=== PATIENT | male | born 1940 | race Hispanic/Latino ===

== ENCOUNTER 2023-09-07 10:52 | Emergency (ER) | payer MEDICARE, OTHER, SELFPAY ==
[2023-09-07 10:58] VITALS: BP 167/99
--- NOTE | 2023-09-07 11:18 | ED.GENMED ---
History of Present Illness
General
Chief Complaint: Fall
Source: patient, spouse and family
Exam Limitations: none
Time Seen by Provider: 09/07/23 11:15
Nursing documentation reviewed up to this point in time: agreed with
Travel History
Have you had any contact with someone who has COVID-19?: No
Do you have any symptoms of coronavirus? Fever > 100 degrees, chills, cough, shortness of breath, sore throat, loss of taste or smell, muscle aches, or headache?: No
History of Present Illness
History of Present Illness:
83-year-old male presents emerged department after tripping and falling on a carpet at the oral surgeon's office and hitting his right head. He denies loss of consciousness and denies any other pain besides his right forehead. He is unsure when
his last tetanus shot was.
Past History
Past History
ED Past Medical History: Other (diverticulitis, Kidney stones,)
ED Past Surgical History: Bowel resection (for Diverticulitis) and Cholecystectomy
Social History
Tobacco: Non-smoker
Alcohol: Daily (wine 2 glasses)
Drug: None
Personal:
Living: with family
Review of Systems
Review of Systems
Allergies reviewed?: Yes
All Other Systems: Not applicable
Constitutional: Reports no symptoms
EENT: Reports no symptoms
Respiratory: Reports no symptoms
Cardiac: Reports no symptoms
ABD/GI: Reports no symptoms
: Reports no symptoms
Musculoskeletal: Reports no symptoms
Skin: Reports other (Laceration right forehead)
Neurological: Reports headache
Endocrine: Reports no symptoms
Hematologic/Lymphatic: Reports no symptoms
Psychiatric: Reports no symptoms
Phy Exam
Physical Exam
Physical Exam:
Physical Exam
General: no apparent distress, not acutely ill
Neck: supple. no meningeal signs. normal posterior pharynx
Heart: equal radial pulses.
HEENT: Pupils equal round reactive to light, EOMI
Lungs: no acute respiratory distress.
Abdomen: normal bowel sounds. not tender. no CVAT
Neuro: alert and oriented. no focal neurological deficits cranial nerves II through XII intact
Skin: no rash, laceration right forehead 2 cm
Psychiatric: well kept. interactive and cooperative
Extremities: no edema. no calf tenderness. negative homans. good distal pulses
Course
Orders/Labs/Results
Orders:
Orders
09/07/23 11:24
CT Head W/o Iv Contrast Urgent
Comment:
Reason For Exam: right forehead contusion/abrasion fall
Tetanus/Diphth/Acelpertussis [Adacel] 0.5 ml IM .ONCE ONE
Vital Signs
Initial and Last Documented VS:
Initial Vital Signs
Temp Pulse Resp BP Pulse Ox
97.5 F 109 18 167/99 95
09/07/23 10:58 09/07/23 10:58 09/07/23 10:58 09/07/23 10:58 09/07/23 10:58
Last Documented Vital Signs
Temp Pulse Resp BP Pulse Ox
97.5 F 109 18 167/99 95
09/07/23 10:58 09/07/23 10:58 09/07/23 10:58 09/07/23 10:58 09/07/23 10:58
Procedures
Laceration Closure
Right Forehead:
Status of Wound: clean
Size of Wound in cm: 2
Description of Wound Edges: sharp and surrounded by abrasion
Preparation: cleaned with saline
Anesthesia: 1% Lidocaine with epi
Revision/Debridement: routine- no revision
Wound exploration: explored to base- no FB
Type of Closure: single layer closure
Skin Closure Material: 4-0 nylon
Number of sutures: 2
MDM/Problems Addressed
Differential Diagnosis Includes:
Intracranial hemorrhage, forehead laceration
MDM/Problems Addressed:
83-year-old male with right forehead laceration, no signs of intracranial hemorrhage on CT. Stable for discharge. Tetanus updated
Chronic conditions affecting care: HTN
Acute Exacerbation and/or Progression of Chronic Illness: HTN
*Radiology
Radiology exam reviewed: preliminary read by ED provider (CT head no acute findings)
*Pulse Oximetry
Patient hypoxic: no
*EKG
Interpreted by ED Provider?: NA
*Assistant Boiler Operator Interpretation
Rate: Assistant Boiler Operator- N/A
*Critical Care Note
Total Time (30-74mins, 75-104mins- exclusive of procedures): Not Applicable
Patient Management
Social determinants of health affecting care: Living situation
Escalation/DeEscalation of care consider admission/obs:
Not indicated
ED Attending Note
-
Portions of this chart may have been created with voice recognition software.� Occasional wrong word or��sound alike� substitutions may have occurred due to the inherent limitations of voice recognition software.
Discharge Plan
Departure
Patient with high blood pressure during this ER visit?: Yes
Condition: Good
Discharge Problem:
Forehead laceration, Contusion of head
Instructions: BLOOD PRESSURE, Laceration Repair With Stitches (DC)
Prescriptions:
No Action
aspirin 81 MG tablet,delayed release (DR/EC)
81 mg PO HS
levothyroxine [Synthroid] 88 mcg Tablet
88 mcg PO DAILY
lisinopril 40 mg Tablet
40 mg PO HS
fluticasone propionate [Flonase] 50 mcg/actuation [place],Suspension
1 spray INTRANASAL HS
Referrals:
Paul Ramirez MD [Family Provider] -
Activity Restrictions/Additional Instructions:
See primary care in 5 days for suture
[2023-09-07] MEDS: ADACEL 0.5 ML IM (11:57)
[2023-09-07 12:23] VITALS: BP 158/88
== END 2023-09-07 12:24 | disposition home or self-care (01) ==
LOC: EMR 10:52
PROVIDERS: EMERGENCY PHYSICIAN Emergency Medicine; FAMILY PHYSICIAN Family Medicine
DX: S01.81XA Laceration without foreign body of other part of head, initial encounter (principal); W01.198A Fall on same level from slipping, tripping and stumbling with subsequent striking against other object, initial encounter; I10 Essential (primary) hypertension; Z23 Encounter for immunization
CPT/HCPCS: 99284; 90471; 12011; 70450; 90715

== ENCOUNTER → 2023-09-28 07:58 | Outpatient (REF) | payer MEDICARE, OTHER, SELFPAY ==
[2023-09-28 09:15] LABS: % Basophils 0.8 % (0-2); % Eosinophils 3.9 % (0-6); % Immature Granulocytes 0.2 % (0-0.5); % Monocytes 9.2 % (1.7-9.3); % Neutrophils 62.9 % (42.2-75.2); Absolute Basophils 0.1 10^3/uL (0-0.2); Absolute Eosinophils 0.2 10^3/uL (0-0.7); Absolute Lymphocytes 1.4 10^3/uL (1.2-3.4); Absolute Monocytes 0.6 10^3/uL (0.1-0.6); Absolute Neutrophils 3.7 10^3/uL (1.4-6.5); Hematocrit 46.5 % (39.0-52.0); Hemoglobin 16.8 g/dL (13.0-18.0); Mean Corp Hgb Conc. 36.1 g/dL (33.0-37.0); Mean Corpuscular Volume 88.6 fL (80.0-94.0); Mean Platelet Volume 12.2 fL (7.4-10.4); Nucleated Red Blood Cells % 0 % (-); Platelet Count 134 10^3/uL (130-400); Red Blood Cell Count 5.25 10^6/uL (4.70-6.10); Red Cell Dist. Width 12.6 % (11.5-14.5)
[2023-09-28 09:36] LABS: NT-proBNP 701 pg/ml
[2023-09-28 09:44] LABS: ALT (SGPT) 405 U/L (0-50); AST (SGOT) 314 U/L (17-59); Albumin 3.9 g/dl (3.5-5.0); Alkaline Phosphatase 153 U/L (38-126); Blood Urea Nitrogen 16 mg/dl (9-20); Carbon Dioxide 22 mmol/L (22-30); Chloride 106 mmol/L (98-107); Glucose 109 mg/dl (70-99); HDL Cholesterol 37 mg/dl; LDL Cholesterol, Calculated 103 mg/dl; Potassium 4.1 mmol/L (3.5-5.1); Sodium 138 mmol/L (135-145); Total Bilirubin 1.4 mg/dl (0.2-1.3); Total Cholesterol 184 mg/dl (50-199); Total Protein 7.7 g/dl (6.3-8.2); Triglyceride 223 mg/dl (10-149); Very Low Density Lipoprotein 44 mg/dl (0-30); eGFR > 60.00
[2023-09-28 11:13] LABS: Glycohemoglobin (HgbA1c) 5.2 % (4.0-5.6)
== END ==
LOC: RAD 07:58
PROVIDERS: ATTENDING PHYSICIAN Physician Assistant Medical; FAMILY PHYSICIAN Family Medicine
DX: R60.0 Localized edema (principal); I45.2 Bifascicular block; I10 Essential (primary) hypertension; E03.9 Hypothyroidism, unspecified; D58.2 Other hemoglobinopathies
CPT/HCPCS: 36415; 80053; 80061; 83036; 83880; 84443; 85025; 93922; 93925

== ENCOUNTER → 2023-10-26 08:28 | Outpatient (REF) | payer MEDICARE, OTHER, SELFPAY ==
[2023-10-26 10:49] LABS: ALT (SGPT) 397 U/L (0-50); AST (SGOT) 311 U/L (17-59); Albumin 3.8 g/dl (3.5-5.0); Alkaline Phosphatase 144 U/L (38-126); Amylase 72 U/L (30-110); Blood Urea Nitrogen 20 mg/dl (9-20); Carbon Dioxide 25 mmol/L (22-30); Chloride 108 mmol/L (98-107); Glucose 103 mg/dl (70-99); Lipase 100 U/L (23-300); Potassium 4.5 mmol/L (3.5-5.1); Sodium 137 mmol/L (135-145); Total Bilirubin 1.2 mg/dl (0.2-1.3); Total Protein 7.6 g/dl (6.3-8.2); eGFR > 60.00
[2023-10-26 11:19] LABS: TSH 1.31 uIU/ml (0.47-4.68)
[2023-10-26 11:35] LABS: Hepatitis B Surface Antigen Negative (Negative)
[2023-10-26 11:52] LABS: Hepatitis B Core Ab, Total Reactive (Negative); Hepatitis B Surface Antibody Negative
[2023-10-26 18:11] LABS: Hepatitis A Antibody, Total Positive (Negative)
[2023-10-27 14:05] LABS: Alpha-1-Antitrypsin 143 mg/dL (90-200)
== END ==
LOC: RAD 08:28
PROVIDERS: ATTENDING PHYSICIAN Physician Assistant Medical
DX: R74.8 Abnormal levels of other serum enzymes (principal); R60.0 Localized edema; K62.5 Hemorrhage of anus and rectum
CPT/HCPCS: 36415; 76700; 80053; 82103; 82150; 82728; 83690; 84443; 86704; 86706; 86708; 87340

== ENCOUNTER → 2024-03-22 14:48 | Outpatient (REF) | payer MEDICARE, OTHER, SELFPAY ==
[2024-03-22 15:45] LABS: % Basophils 0.5 % (0-2); % Eosinophils 1.2 % (0-6); % Immature Granulocytes 0.3 % (0-0.5); % Lymphocytes 18.6 % (20.5-51.1); % Monocytes 5.5 % (1.7-9.3); % Neutrophils 73.9 % (42.2-75.2); Absolute Basophils 0.1 10^3/uL (0-0.2); Absolute Eosinophils 0.1 10^3/uL (0-0.7); Absolute Lymphocytes 1.8 10^3/uL (1.2-3.4); Absolute Monocytes 0.5 10^3/uL (0.1-0.6); Absolute Neutrophils 7.3 10^3/uL (1.4-6.5); Hematocrit 43.1 % (39.0-52.0); Hemoglobin 15.6 g/dL (13.0-18.0); Mean Corp Hgb Conc. 36.2 g/dL (33.0-37.0); Mean Corpuscular Hgb 31.8 pg (27.0-31.0); Mean Corpuscular Volume 87.8 fL (80.0-94.0); Nucleated Red Blood Cells % 0 % (-); Platelet Count 139 10^3/uL (130-400); Red Blood Cell Count 4.91 10^6/uL (4.70-6.10); Red Cell Dist. Width 13.7 % (11.5-14.5); White Blood Cell Count 9.9 10^3/uL (4.8-10.8)
[2024-03-22 15:56] LABS: Erythrocyte Sed Rate 92 mm/hour (0-20)
== END ==
LOC: REG 14:48
PROVIDERS: ATTENDING PHYSICIAN Student in an Organized Health Care Education/Training Program; FAMILY PHYSICIAN Family Medicine
DX: Z96.652 Presence of left artificial knee joint (principal); M25.562 Pain in left knee
CPT/HCPCS: 36415; 85025; 85652; 86140

== ENCOUNTER → 2024-03-24 14:22 | Outpatient (REF) | payer MEDICARE, OTHER, SELFPAY ==
[2024-03-24 18:26] LABS: Body Fluid Mononuclear 3.9 %; Body Fluid Polymorphonuclear 96.1 %; Body Fluid WBC 37930 /CUMM
[2024-03-24 18:52] LABS: Body Fluid Second Tech CMC
== END ==
LOC: CLAB 14:22
PROVIDERS: ATTENDING PHYSICIAN Physician Assistant Surgical
DX: M25.462 Effusion, left knee (principal); Z96.652 Presence of left artificial knee joint
CPT/HCPCS: 36415; 86618; 87015; 87070; 87075; 87147; 87205; 87476; 89051; 89060

== ENCOUNTER → 2024-03-28 13:18 | Outpatient (REF) | payer MEDICARE, OTHER, SELFPAY ==
[2024-03-28 14:03] LABS: % Basophils 0.6 % (0-2); % Eosinophils 0.8 % (0-6); % Immature Granulocytes 0.3 % (0-0.5); % Lymphocytes 12.8 % (20.5-51.1); % Monocytes 7.6 % (1.7-9.3); % Neutrophils 77.9 % (42.2-75.2); Absolute Basophils 0.1 10^3/uL (0-0.2); Absolute Eosinophils 0.1 10^3/uL (0-0.7); Absolute Monocytes 0.6 10^3/uL (0.1-0.6); Absolute Neutrophils 6.2 10^3/uL (1.4-6.5); Hematocrit 40.6 % (39.0-52.0); Hemoglobin 14.4 g/dL (13.0-18.0); Mean Corp Hgb Conc. 35.5 g/dL (33.0-37.0); Mean Corpuscular Hgb 31.4 pg (27.0-31.0); Mean Corpuscular Volume 88.6 fL (80.0-94.0); Mean Platelet Volume 11.2 fL (7.4-10.4); Nucleated Red Blood Cells % 0 % (-); Platelet Count 162 10^3/uL (130-400); Red Blood Cell Count 4.58 10^6/uL (4.70-6.10); White Blood Cell Count 7.9 10^3/uL (4.8-10.8)
[2024-03-28 15:05] LABS: ALT (SGPT) 224 U/L (0-50); AST (SGOT) 191 U/L (17-59); Albumin 3.7 g/dl (3.5-5.0); Alkaline Phosphatase 239 U/L (38-126); Blood Urea Nitrogen 17 mg/dl (9-20); Calcium 9.3 mg/dl (8.4-10.2); Carbon Dioxide 26 mmol/L (22-30); Chloride 104 mmol/L (98-107); Glucose 101 mg/dl (70-99); Potassium 4.1 mmol/L (3.5-5.1); Sodium 142 mmol/L (135-145); Total Bilirubin 2.4 mg/dl (0.2-1.3); Total Protein 7.7 g/dl (6.3-8.2); eGFR > 60.00
[2024-03-31 09:14] LABS: Glycohemoglobin (HgbA1c) 4.8 % (4.0-5.6)
== END ==
LOC: RAD 13:18
PROVIDERS: ATTENDING PHYSICIAN Specialist; FAMILY PHYSICIAN Family Medicine
DX: Z01.818 Encounter for other preprocedural examination (principal)
CPT/HCPCS: 36415; 80053; 85025; 86850; 86900; 86901; 87070; 93005

== ENCOUNTER 2024-04-03 10:35 | Inpatient (IN) | payer MEDICARE, OTHER, SELFPAY ==
--- NOTE | 2024-03-29 15:04 | CM ---
Addendum entered by Miriam Bernstein 03/29/24 15:35:
Attempted to contact patient via phone. no answer, will try later.
Spoke with [facility] they would be able to go out as early as Wednesday for IV anbx. We would be able to place referral if patient in agreement. CM will try back later.
Original Note:
CM asked to check costs for possible home IV anbx.
Cefazolin 2 gm IV q 8.
Insurance information and planned medication sent to [facility].
[facility] will verify benefits and coverage/out of pocket expenses.
--- NOTE | 2024-03-30 10:21 | CM ---
Addendum entered by Miriam Bernstein 03/30/24 11:32:
TCB from spouse Radha.
Per Radha she is aware of plan post surgery for IV anbx and d/c to home. Radha was agreeable to [facility] providing antibiotics and supplies.
Costs reviewed and acceptable.
Discussed home care companies and [facility] was chosen for IV anbx.
Referral placed to [facility] and spoke with liaison re potential early next week d/c.
Per Radha her spouse was very active prior to surgery last year. Bedroom is on the second floor and has some concerns re stairs.
CM explained patient would be evaluated by PT/OT prior to d/c to assess needs and safety at home.
CM explained patient will be followed by CM after surgery to go over d/c plans.
Addendum entered by Miriam Bernstein 03/30/24 11:11:
Left VM for spouse.
Original Note:
TC from Emma/[facility] re costs for IV anbx.
Cefazolin 2 gm IV q 8. patient has insurance benefit, OOP costs to patient for medication and supplies would be $155 per week.
TC to patient Ángel p#[phone] to discuss d/c plan with anbx after surgery.
Patient requested CM call back in a little while to speak with spouse.
[2024-04-03] VITALS (17 sets, daily range): BP systolic 143–186; BP diastolic 76–94; BMI 23.7
[2024-04-03] MEDS: TYLENOL 650 MG PO (11:58)
[2024-04-03] MEDS: CELEBREX 200 MG PO (11:59)
--- NOTE | 2024-04-03 12:10 | CON.ID ---
Consultation
-
Date/Time Consultation Requested: 04/03/2024
Date/Time Consultation Performed: 04/03/2024
Requesting Provider: Dr. Juan Diego Strauss
Performing Provider: Dr. Pamela Hall
Reason for Consultation: Knee PJI
Chief Complaint / Past History
Chief Complaint
Left knee swelling and pain
History of Present Illness
History obtained from review of medical records, from patient, and his at bedside. He is an 84 year old male with hypothyroidism, OA s/p left total knee replacement on 02/23/2023. He was doing well until 2 weeks ago, when left knee became
swollen and painful. Ortho tapped the knee on 03/24/24; 37,930 wbc, 96% polys, Lyme PCR neg, cx + Staph epi sensitive to oxacillin. He was placed on cephalexin as per my recommendation while awaiting for surgery. He presents today at [facility] for first
stage revision. He denies fevers or chills. No recent open wounds on legs. Fell and had cuts on his foreheads 6 months ago requiring stitches. Had hematuria treated with Bactrim in January. He gets steroid injection to right knee.
Past History
Additional Past Medical History:
HTN
hypothyroidism
Erectile dysfunction
Elevated LFT's
BPH
Nephrolithiasis
Diverticulitis w/ perforated bowel s/p remote colon resection
Venous insufficiency
Depression
Cerebellar infarct on MRI
Right knee OA - treating with steroid injections
Left TKA 02/23/2023
Allergy History:
latex Allergy (Verified 04/03/24 11:51)
LIPS AND GUMS SWELLING
meperidine HCl [From Demerol] Allergy (Verified 04/03/24 11:51)
hallucinations
morphine [Morphine] Allergy (Verified 04/03/24 11:51)
hallucinations
Medications Reviewed: Yes
Social History
Tobacco: Non-Smoker
Alcohol: Former (2 to 3 glasses of wine daily, stopped 6 months ago)
Drug: None
Personal:
Living: With Family
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
Family History
Family History: Not Pertinent
Review of Systems
Review of Systems
General: Negative Fever, Chills or Change in Appetite
HEENT: Negative Sinus Problems or Headache
Cardiovascular: Negative Chest Pain or Dyspnea
Respiratory: Negative Dyspnea or Cough
Gasteroenterology: Negative Nausea, Vomiting or Diarrhea
Genital / Urological: Negative Dysuria or Flank Pain
Endocrine: Negative Weakness or Fatigue
Musculoskeletal: Joint Pain (left knee) and Joint Swelling (left knee)
Skin / Hair / Nails: Negative Rash
All systems: All other systems were reviewed and were negative
Vital Signs
Pulse Resp BP Pulse Ox
102 18 174/94 98
04/03/24 11:55 04/03/24 11:55 04/03/24 11:55 04/03/24 11:55
Physical Exam
Physical Exam
Constitutional: No Acute Distress and Comfortable
Eyes: No Conjunctival Hemorrhage and Sclera Anicteric
Cardiovascular: Regular Rate and S1/S2
Pulmonary: Clear
Gastrointestinal: Soft, Non Tender, Non Distended and Normal Bowel Sounds
Genito-Urinary: Negative CVA Tenderness
Extremities: Negative Edema
Musculoskeletal: Other (Left knee + warmth, effusion, limited ROM)
Neurological: AO x 3
Microbiology Results
Fluid Cult/not urine Final 03/30/24-1134
Few Staphylococcus epidermidis
Organism 1 Staphylococcus epidermidis
1. Staphylococcus epidermidis
M.I.C. RX
--------- ---
Amoxicillin/Potas. Clavulanate <=4/2 S
Ampicillin <=2 R
Clindamycin <=0.5 S
Gentamicin >8 R
Erythromycin >4 R
Levofloxacin <=1 S
Oxacillin <=0.25 S
Tetracycline >8 R
Trimethoprim/Sulfamethoxazole <=0.5/9.5 S
Vancomycin 2 S
Assessment / Plan
# Late left knee PJI
- Arthrocentesis fluid 37,930, 96%polys, no crystals, Lyme DNA neg
Cx : Staph epidermidis (MSSE)
- For first stage knee revision today.
- Will place PICC post-op
- Cefazolin 2g IV q8h x 6 weeks through 05/15/24.
[2024-04-03] MEDS: NORMOSOL-R/PLASMALYTE-A 1000 IV (12:11)
--- NOTE | 2024-04-03 14:41 | W.PN.UPDATE ---
Update Note
Progress Note Update
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
- Pre-op culture demonstrating Staph epidermidis -> started on Cefadroxil 500 mg PO QID per Dr. Hall's (ID) recs
- Start Cefazolin 2g IV q8h post-op (ideal timing 6 AM, 2 PM, 10 PM)
- Consult ID
DVT prophylaxis - ASA, b/l venous foot pumps
HTN - diet controlled - monitor BP
Fatty liver disease w/ elevated LFTs per abdominal x-ray 10/2023 - given recent LFT readings w/ strong Fhx of liver CA, will consult GI for further w/u
- Minimize hepatotoxins as able (No Tylenol, NSS over Normosol post-op)
RBBB
LAFB
PVD w/ venous varicosities
Diverticulitis w/ perforated bowel s/p remote colon resection
Nephrolithiasis, non-obstructive
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
Cervical DDD
Hypothyroidism
Depression
PILOT [place]
[2024-04-03] MEDS: SUBLIMAZE 50 MCG IV (17:30)
[2024-04-03] MEDS: ROXICODONE 5 MG PO (17:51)
[2024-04-03] MEDS: NEURONTIN 200 MG PO ×2 (17:51→20:32)
[2024-04-03] MEDS: NSS 1000 IV (18:06)
--- NOTE | 2024-04-03 19:45 | SUR.PHASEI ---
patient is confused with time - thought original knee surgery was last year. Has some difficulty with time and events. Medicated for burning pain in knee and back pain. Medicated with fentanyl and roxicodone and neurontin started. minimal
drainage on knee dressing. left foot was cold and purple mottled on arrival. doppler pulse - warm blanket on. foot did improve in color and temperature during stay though still cooler than right. slept after medication. updated x2. discharge
to 2 south when room available. handoff at bedside.
[2024-04-03] MEDS: ASPIRIN 325 MG PO (20:31)
[2024-04-03] MEDS: PEPCID 20 MG PO (20:31)
[2024-04-03] MEDS: SENOKOT 17.2 MG PO (20:32)
[2024-04-03] MEDS: COLACE 100 MG PO (20:32)
[2024-04-03] MEDS: BACTROBAN 2% OINTMENT 1 APPLIC NASAL (21:33)
[2024-04-03] MEDS: ANCEF 10 IV (21:33)
[2024-04-04] VITALS (9 sets, daily range): BP systolic 113–177; BP diastolic 62–98; PULSE 69–95; O2SAT 98–99
--- NOTE | 2024-04-04 02:01 | PTCARENOTE ---
19:15 pt rec'vd from PACU, left knee dressing with small amount of drainage noted, left pedal pulses +with doppler , toes cool to touch and mottled, pt is able to wiggles toes, vs at pt's baseline, pt denies pain at this time, pt oriented to unit
[2024-04-04] MEDS: ANCEF 10 IV ×3 (06:17→20:28)
[2024-04-04] MEDS: SYNTHROID 88 MCG PO (06:17)
--- NOTE | 2024-04-04 06:33 | PTCARENOTE ---
pt able to ambulate 30 feet with stand by assist and walker.
[2024-04-04 06:50] LABS: Hematocrit 37.2 % (39.0-52.0); Hemoglobin 13.1 g/dL (13.0-18.0); Mean Corp Hgb Conc. 35.2 g/dL (33.0-37.0); Mean Corpuscular Volume 90.7 fL (80.0-94.0); Mean Platelet Volume 11.7 fL (7.4-10.4); Platelet Count 222 10^3/uL (130-400); Red Cell Dist. Width 13.7 % (11.5-14.5); White Blood Cell Count 6.4 10^3/uL (4.8-10.8)
[2024-04-04 07:27] LABS: ALT (SGPT) 120 U/L (0-50); AST (SGOT) 96 U/L (17-59); Albumin 2.9 g/dl (3.5-5.0); Alkaline Phosphatase 219 U/L (38-126); Blood Urea Nitrogen 19 mg/dl (9-20); Calcium 8.3 mg/dl (8.4-10.2); Carbon Dioxide 27 mmol/L (22-30); Chloride 104 mmol/L (98-107); Estimated Creatinine Clearance 66 ml/min; Glucose 134 mg/dl (70-99); Potassium 5.5 mmol/L (3.5-5.1); Sodium 140 mmol/L (135-145); Total Bilirubin 1.3 mg/dl (0.2-1.3); Total Protein 6.5 g/dl (6.3-8.2); eGFR > 60.00
[2024-04-04 08:34] LABS: Erythrocyte Sed Rate 79 mm/hour (0-20)
--- NOTE | 2024-04-04 09:53 | W.PN.ID1 ---
Date of Service
Date of Service: April 04, 2024
Today's Communication
- Ordered PICC
- Cefazolin 2g IV q8h x 6 weeks through 05/15/24.
Assessment / Plan
# Late left knee PJI
- Arthrocentesis fluid 37,930, 96%polys, no crystals, Lyme DNA neg
Cx : Staph epidermidis (MSSE)
- 04/03/24 s/pfirst stage knee revision
- Ordered PICC
- Cefazolin 2g IV q8h x 6 weeks through 05/15/24.
- Home infusion sheet submitted to case managemen to set up.
#Additional Past Medical History:
HTN
hypothyroidism
Erectile dysfunction
Elevated LFT's
BPH
Nephrolithiasis
Diverticulitis w/ perforated bowel s/p remote colon resection
Venous insufficiency
Depression
Cerebellar infarct on MRI
Right knee OA - treating with steroid injections
Left TKA 02/23/2023
Chief Complaint
-: Other (PJI)
Subjective / Review of Systems
No complaints. Working with PT now.
Vital Signs / Physical Exam
Vital Signs
Vital Signs
Temp Pulse Resp BP Pulse Ox
97.8 F 94 18 149/72 96
04/04/24 07:00 04/04/24 07:00 04/04/24 07:00 04/04/24 07:00 04/04/24 07:00
Physical Exam
Constitutional: No Acute Distress
Pulmonary: Clear
Gastrointestinal: Soft and Non Tender
Neurological: AO x 3
Objective Data
Lab Data
Lab Results
04/04/24 04:59
04/04/24 04:59
ESR 79 mm/hour (0-20) H 04/04/24 04:59
Estimated Creat Clear 66 ml/min 04/04/24 04:59
Total Bilirubin 1.3 mg/dl (0.2-1.3) 04/04/24 04:59
AST 96 U/L (17-59) H 04/04/24 04:59
ALT 120 U/L (0-50) H 04/04/24 04:59
Alkaline Phosphatase 219 U/L (38-126) H 04/04/24 04:59
Most recent labs reviewed.
Fluid Cult/not urine Final 03/30/24-1134
Few Staphylococcus epidermidis
Organism 1 Staphylococcus epidermidis
1. Staphylococcus epidermidis
M.I.C. RX
--------- ---
Amoxicillin/Potas. Clavulanate <=4/2 S
Ampicillin <=2 R
Clindamycin <=0.5 S
Gentamicin >8 R
Erythromycin >4 R
Levofloxacin <=1 S
Oxacillin <=0.25 S
Tetracycline >8 R
Trimethoprim/Sulfamethoxazole <=0.5/9.5 S
Vancomycin 2 S
[2024-04-04] MEDS: ROXICODONE 10 MG PO (10:22)
[2024-04-04] MEDS: BACTROBAN 2% OINTMENT 1 APPLIC NASAL ×2 (10:25→20:27)
[2024-04-04] MEDS: SENOKOT 17.2 MG PO (10:26)
[2024-04-04] MEDS: COLACE 100 MG PO (10:27)
[2024-04-04] MEDS: ASPIRIN 325 MG PO (10:27)
[2024-04-04] MEDS: NEURONTIN 200 MG PO ×3 (10:27→20:28)
--- NOTE | 2024-04-04 11:19 | CON.GI ---
Addendum entered and electronically signed by Cynthia Diallo Do, MD 04/04/24 16:09:
I saw and examined the patient.
The BATCH WEIGHER's note was reviewed and I agree with the note.
Comment: Ángel is an 84yo M with h/o OA s/p L total knee replacement in 02/2023 admitted with first stage revision for L TKA. GI consulted for chronically elevated LFTs dating back to 2007 with recent uptrend. He is not known to GI or hepatology.
Endorse wine but none in the past several weeks + herbal med. No acetaminophen. His brother passed of hep C cirrhosis and his had hepatitis in [place] as well. Vitals stable exam NTTP NABs no jaundice. Labs reviewed. Hep B core +
surface antigen negative. Imaging CXR with R PICC in place.
Impression
- Elevated LFTs
ddx includes fatty liver and ETOH use
- Hep B core +, angiten negative
- Revision of L TKA
- HTN
- Hypothyroidism
- Hyperlipidemia
Recommendations
- Serial LFTs
- Recommend hereditary liver panel and hep B DNA. Not able to order inpt. Lab slip provided
- ETOH cessation
- Hold on herbal med
- OP FU in office and will benefit from fibroscan then
No other GI recs will sign off please call for questions.
Original Note:
Consultation
-
Date/Time Consultation Requested: 04/03/24 1651
Date/Time Consultation Performed: 04/04/24 1100
Requesting Provider: JESUS Crane
Performing Provider: Dr. Amado/VICKI Shane
Reason for Consultation: History of Elevated LFTs/Fatty Liver
Medical History
Chief Complaint / HPI
Chief Complaint: left knee swelling
History of Present Illness:
84-year-old male with past medical history of hypothyroidism, osteoarthritis status post left total knee replacement in February 2023, colon polyps overdue for colonoscopy 09/2020, elevated LFTs dating back to 2007, BPH, nephrolithiasis,
diverticulitis with bowel resection who was treated for a left knee infection and is admitted to the hospital for first stage revision for left TKA. We are asked to evaluate the patient at the request of his PCP for elevated LFTs that have been
present since 2007 however increased since September 2023. No acute signs of significant change since that time. Unfortunately the patient's closest brother 2-1/2 weeks ago of liver cancer. They were unaware that he even had a until just
prior to his demise. Going back in patient's prior records he had mildly elevated AST and ALT going back until 2007. No records available to me prior to that. In [id number] there were no liver enzymes that were performed however in September 2023 he
did have a jump in his liver enzymes with total bilirubin total bilirubin 1.4, AST 314, ALT 405 and alk phos 153 these were repeated 1 month later that showed total bilirubin 1.2, AST 311, ALT 397 alk phos 144. He did have an ultrasound of the
right upper quadrant that showed fatty liver. He had a negative alpha 1 antitrypsin. Viral hepatitis studies were performed in October that showed hepatitis A antibody total that was positive (immune), hepatitis B surface antigen negative, hepatitis B
surface antibody negative, hepatitis B core total antibody reactive. The patient's was with him at bedside. She states that when she was in her 20s she was admitted to the hospital for some form of 'hepatitis'. And that she stayed in the
hospital for almost 2 months. She is unsure what type of hepatitis she had. Eventually she was discharged to home. The patient himself would drink approximately 2 glasses of wine daily. Never anything heavier than this. He has not had anything
to drink for at least 6 months. In the past he would use a significant amount of Tylenol otherwise no other significant hepatotoxic medications. His only other medication is Synthroid. The patient denies any fevers, chills, nausea, vomiting,
melena, hematochezia, dysphagia or odynophagia. No early satiety or unintentional weight loss. Currently total bilirubin 1.3, AST 96, ALT 120, alk phos 219.
Past Medical History
Past Medical History: HTN, Hypercholesterolemia, Hypothyroidism and Other (Osteoarthritis, elevated LFTs, colon polyps)
Past Surgical History: Orthopedic (Colon resection, left total knee arthroscopy (02/23/2023))
Social History
Tobacco: Non-Smoker
Alcohol: Former
Drug: None
Personal:
Living: With Family
Employment: Retired
Family History
Family History: Other (Brother recently 2 weeks ago liver cancer, no other family history of gastrointestinal malignancies or IBD)
Allergies / Home Medications
Allergy/AdvReac Type Severity Reaction Status Date / Time
latex Allergy LIPS AND Verified 04/03/24 11:51
GUMS
SWELLING
meperidine HCl [From Demerol] Allergy hallucinati Verified 04/03/24 11:51
ons
morphine [Morphine] Allergy hallucinati Verified 04/03/24 11:51
ons
�Medication �Instructions �Recorded
levothyroxine 88 mcg tablet 88 mcg PO DAILY Thyroid 07/03/22
(Synthroid)
acetaminophen 325 mg tablet 650 mg PO QID PRN pain 03/30/24
(Tylenol)
Review of Systems
-
All other systems: A 12 pt ROS was Negative except as stated above in HPI
Vital Signs
Temp Pulse Resp BP Pulse Ox
97.8 F 94 18 149/72 96
04/04/24 07:00 04/04/24 07:00 04/04/24 07:00 04/04/24 07:00 04/04/24 07:00
Physical Exam
Exam
General: No Apparent Distress
HEENT: Anicteric
Respiratory: Clear
Cardiac: Regular Rhythm
GI: Soft, Non Tender, Non Distended and Normal Bowel Sounds
Musculoskeletal: No Edema and Other (Ice pack on left knee)
Skin: Warm and Dry
Neuro: AO x 3
Psych: Calm
Results
WBC 6.4 10^3/uL (4.8-10.8) 04/04/24 04:59
Hgb 13.1 g/dL (13.0-18.0) 04/04/24 04:59
Hct 37.2 % (39.0-52.0) L 04/04/24 04:59
MCV 90.7 fL (80.0-94.0) 04/04/24 04:59
Plt Count 222 10^3/uL (130-400) D 04/04/24 04:59
Sodium 140 mmol/L (135-145) 04/04/24 04:59
Potassium 5.5 mmol/L (3.5-5.1) H 04/04/24 04:59
Chloride 104 mmol/L (98-107) 04/04/24 04:59
Carbon Dioxide 27 mmol/L (22-30) 04/04/24 04:59
BUN 19 mg/dl (9-20) 04/04/24 04:59
Creatinine 0.7 mg/dL (0.7-1.3) 04/04/24 04:59
Calcium 8.3 mg/dl (8.4-10.2) L 04/04/24 04:59
Total Bilirubin 1.3 mg/dl (0.2-1.3) 04/04/24 04:59
AST 96 U/L (17-59) H 04/04/24 04:59
ALT 120 U/L (0-50) H 04/04/24 04:59
Alkaline Phosphatase 219 U/L (38-126) H 04/04/24 04:59
Diagnostic Image Results:
Prior GI Procedures:
EGD: Never had
Colonoscopy: 10/11/2020 ([facility]) - Preparation of the colon was fair.
- One 4 mm polyp in the cecum, removed with a cold
snare. Resected and retrieved.
- One 6 mm polyp in the transverse colon, removed with
a cold snare. Resected and retrieved.
- Diverticulosis in the sigmoid colon, in the
descending colon, in the transverse colon and in the
ascending colon.
- Non-bleeding internal hemorrhoids.
- Suspect bleeding is likely diverticular as it has
resolved.
Assessment / Plan
-
84-year-old male with past medical history of hypothyroidism, osteoarthritis status post left total knee replacement in February 2023, colon polyps overdue for colonoscopy 09/2020, elevated LFTs dating back to 2007, BPH, nephrolithiasis,
diverticulitis with bowel resection who was treated for a left knee infection and is admitted to the hospital for first stage revision for left TKA. We are asked to evaluate the patient at the request of his PCP for elevated LFTs that have been
present since 2007 however increased since September 2023. No acute signs of significant change since that time.
Impression:
Elevated LFTs
Hepatitis B core antibody positive
Fatty liver seen on ultrasound imaging 10/2023
Family history of liver cancer Brother
Currently just had stage 1 left TKA revision--> will be convalescing from this
Plan:
-Check HBV PCR
-Discussed with patient and his to follow-up as an outpatient. Given office follow-up on discharge instructions.
-Gave lab slips to have performed after discharge including GAYE, AMA, ASMA, ceruloplasmin, celiac panel, iron, ferritin, anti-LK M1 antibody
-Discussed reduction techniques for fatty liver.
-Avoid any alcohol and hepatic toxic substances
-Will discuss further at outpatient follow-up.
-
-
Thank you for consultation and allowing me to participate in the patient's care. Please call the supervisor production managing GI physician during the after hours with any questions or concerns.
--- NOTE | 2024-04-04 12:15 | W.PN.ORTHO ---
Today's Communication / Plan
-
Trend CBC, K+, LFTs.
Continue to work w/ PT and OT as tolerated.
D/c when clinically stable.
Assessment
.
Distal Motor Intact: Yes
Dressing:
Inferior end of dressing w/ incisional bleeding noted. Pt received additional kasie and dressing changed/reinforced. Dressing now C/D/I.
Assessment:
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
- Pre-op culture demonstrating Staph epidermidis -> started on Cefadroxil 500 mg PO QID per Dr. Hall's (ID) recs
- Start Cefazolin 2g IV q8h post-op (ideal timing 6 AM, 2 PM, 10 PM). PICC line to be placed. Pt will require weekly labs
- Appreciate ID; pt to follow-up outpatient
DVT prophylaxis - ASA, b/l venous foot pumps
Post-op hyperkalemia - Lokelma ordered, low potassium diet - trend
HTN - diet controlled - recent elevations noted (pain related?)
- Ensure adequate pain control
- IV Hydralazine ordered prn for SBP >165
Fatty liver disease w/ elevated LFTs per abdominal x-ray 10/2023 - strong Fhx of liver CA - GI consulted
- Minimize hepatotoxins as able (No Tylenol, NSS over Normosol post-op)
- HBV testing pending
- To follow up w/ GI outpatient for further testing
RBBB
LAFB
PVD w/ venous varicosities
Diverticulitis w/ perforated bowel s/p remote colon resection
Nephrolithiasis, non-obstructive
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
Cervical DDD
Hypothyroidism
Depression
[place]
Plan
.
Surgery / Date: 1st stage Revision of L TKA w/ Dr Strauss 04/03/24
DVT Prophylaxis: Aspirin
Activity:
Out of bed.
PT/OT
Subjective
.
.:
Patient resting comfortably in his chair.
L knee pain reportedly minimal in comparison to pre-op pain.
Denies any new significant complaints.
Vital Signs and Labs
.
Vital Signs and Labs:
Lab Results
04/04/24 04:59
04/04/24 04:59
Temp Pulse Resp BP Pulse Ox
97.3 F 102 18 138/69 96
04/04/24 11:00 04/04/24 11:00 04/04/24 11:00 04/04/24 11:00 04/04/24 11:00
Physical Exam
-
HEENT: No pallor, cyanosis, or jaundice. Throat clear.
NECK: Supple. No JVD.
RESPIRATORY: Lungs clear to auscultation.
CVS: S1, S2 normal. RRR.�
ABDOMEN: Soft, non-tender. No distension.
EXTREMITIES: Strength equal, no calf pain with palpation/dorsiflexion. Calves soft.
RIBBON HAND: AOx3. No focal deficits. tank pumper grossly intact
--- NOTE | 2024-04-04 12:52 | CM ---
Addendum entered by Andreia King 04/04/24 17:19:
Faxed clinicals, labs, med sheets to [facility]
Addendum entered by Andreia King 04/04/24 16:07:
PT re-assessed patient and rec HH. Met with patient and family.
Called & LM with Emma from [facility] to update on patient returning home at discharge.
Faxed PICC Line data & xray to [facility]
PLAN: Home with IV antibiotics - [facility] Fax #: [phone]
[facility] Fax #:[phone]
Original Note:
Met patient, & daughter
IMM explained & signed.
PT recommended SNF - PT states will re-eval later today
Discussed options - Referrals placed Tho bam, [facility]
Discussed with Birgit Zarco
Patient was set up with [facility] & [facility] at home for IV Cefazolin 2 gm Q8H - Faxed script to [facility]
PICC LINE to placed today.
CM to fax PICC DATA & Xray once completed.
PLAN: Home with [facility] IV antibiotics & [facility] VS. SNF, pending bed availability
[facility] Fax #: [phone]
[facility] Fax #:[phone]
[2024-04-04] MEDS: LOKELMA 5 GRAM PO (13:45)
[2024-04-04] MEDS: FLORASTOR 250 MG PO ×2 (13:46→20:28)
--- NOTE | 2024-04-04 20:19 | W.PN.UPDATE ---
Update Note
Progress Note Update
Late entry from ~11a
Patient POD#1 from explant left knee and placement of cement spacer (Dora). Dressing distally a bit saturated. Aquacel taken down. Incision cleaned with Betadine and 4 additional kasie provided to the distal incision. New aquacel dressing
applied with NISHI and kim compression. Will follow
[2024-04-04] MEDS: PEPCID 20 MG PO (20:28)
[2024-04-04] MEDS: SENOKOT PO (20:40)
[2024-04-04] MEDS: COLACE PO (20:40)
[2024-04-04] MEDS: ROXICODONE 5 MG PO (22:27)
--- NOTE | 2024-04-05 04:01 | DOWNTIME ---
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 Downtime documentation of patient's care, including medication administrations, has been reconciled in the electronic record per guidelines. Refer to the
patient's paper chart under the miscellaneous tab to see printed paper medication records and downtime forms.
[2024-04-05] MEDS: ANCEF 10 IV (05:10)
[2024-04-05] MEDS: SYNTHROID 88 MCG PO (05:10)
[2024-04-05 06:37] LABS: Hematocrit 34.3 % (39.0-52.0); Hemoglobin 12.3 g/dL (13.0-18.0); Mean Corp Hgb Conc. 35.9 g/dL (33.0-37.0); Mean Corpuscular Volume 89.3 fL (80.0-94.0); Mean Platelet Volume 11.1 fL (7.4-10.4); Platelet Count 299 10^3/uL (130-400); Red Blood Cell Count 3.84 10^6/uL (4.70-6.10); Red Cell Dist. Width 13.8 % (11.5-14.5); White Blood Cell Count 8.8 10^3/uL (4.8-10.8)
[2024-04-05 07:15] LABS: ALT (SGPT) 78 U/L (0-50); AST (SGOT) 117 U/L (17-59); Alkaline Phosphatase 241 U/L (38-126); Blood Urea Nitrogen 25 mg/dl (9-20); Calcium 8.9 mg/dl (8.4-10.2); Carbon Dioxide 24 mmol/L (22-30); Chloride 106 mmol/L (98-107); Estimated Creatinine Clearance 58 ml/min; Glucose 94 mg/dl (70-99); Potassium 3.9 mmol/L (3.5-5.1); Sodium 140 mmol/L (135-145); Total Bilirubin 0.8 mg/dl (0.2-1.3); Total Protein 6.6 g/dl (6.3-8.2); eGFR > 60.00
[2024-04-05 07:50] VITALS: BP 156/80
[2024-04-05] MEDS: SENOKOT PO (08:46)
[2024-04-05] MEDS: COLACE PO (08:46)
[2024-04-05] MEDS: NEURONTIN 200 MG PO (08:48)
[2024-04-05] MEDS: FLORASTOR 250 MG PO (08:48)
[2024-04-05] MEDS: ASPIRIN 325 MG PO (08:48)
--- NOTE | 2024-04-05 09:18 | CM ---
Spoke with Emma from [facility] and Sissy from [facility], both are on board for 2 pm IV anbx to be administered at home today.
Per Emma all information received.
Emma will be reaching out to patients spouse.
TT to Ortho PA.
[2024-04-05 10:12] VITALS: BMI 23.8
[2024-04-05 10:38] VITALS: BP 150/76; PULSE 100
--- NOTE | 2024-04-05 10:53 | W.PN.ORTHO ---
Today's Communication / Plan
-
D/c today since clinically stable.
Assessment
.
Distal Motor Intact: Yes
Dressing:
Small areas of old incisional bleeding, unchanged since yesterday.
Assessment:
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
- Pre-op culture demonstrating Staph epidermidis -> started on Cefadroxil 500 mg PO QID per Dr. Hall's (ID) recs
- Start Cefazolin 2g IV q8h post-op (ideal timing 6 AM, 2 PM, 10 PM). PICC line placed. Suki to meet pt today at 2 PM.
- Appreciate ID; pt to follow-up outpatient and have weekly labs drawn x6 weeks
DVT prophylaxis - ASA, b/l venous foot pumps
Post-op hyperkalemia, asymptomatic - Lokelma ordered, low potassium diet - improved by POD 2
Post-op diarrhea - reported 1x by pt last night - have switched Colace and Senna from BID to BIDPRN
- Probiotic while on IV abx
- Of note, no further episodes since
HTN - diet controlled - improved by POD 2 w/o need for medication
- Ensured adequate pain control
- IV Hydralazine ordered prn for SBP >165
Fatty liver disease w/ elevated LFTs per abdominal x-ray 10/2023 - strong Fhx of liver CA - GI consulted
- Minimize hepatotoxins as able (No Tylenol/herbals, NSS over Normosol post-op)
- HBV testing pending - results to be f/u by GI
- To follow up w/ GI outpatient for further testing
RBBB
LAFB
PVD w/ venous varicosities
Diverticulitis w/ perforated bowel s/p remote colon resection
Nephrolithiasis, non-obstructive
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
Cervical DDD
Hypothyroidism
Depression
[place]
Plan
.
Surgery / Date: 1st stage Revision of L TKA w/ Dr Strauss 04/03/24
DVT Prophylaxis: Aspirin
Activity:
Out of bed.
PT/OT
Discharge Plan: Home w/ VN
Subjective
.
.:
Patient resting comfortably in his chair today.
Reports some L knee pain w/ ambulation; improvement noted, however, when Oxycodone is taken.
Denies any new significant complaints.
Eager for d/c today.
Vital Signs and Labs
.
Vital Signs and Labs:
Lab Results
04/05/24 05:51
04/05/24 05:51
Temp Pulse Resp BP Pulse Ox
97.8 F 91 18 156/80 98
04/05/24 07:50 04/05/24 07:50 04/05/24 07:50 04/05/24 07:50 04/05/24 07:50
Physical Exam
-
HEENT: No pallor, cyanosis, or jaundice. Throat clear.
NECK: Supple. No JVD.
RESPIRATORY: Lungs clear to auscultation.
CVS: S1, S2 normal. RRR.�
ABDOMEN: Soft, non-tender. No distension.
EXTREMITIES: Expected post-surgical L knee edema. Strength equal, no calf pain with palpation/dorsiflexion. Calves soft.
CONCRETE BUCKET HOOKER: AOx3. No focal deficits. in home tutor grossly intact
--- NOTE | 2024-04-05 11:19 | W.DS.TRANS ---
DC Summary - [place]
-
Discharge Instructions:
Sleep Apnea Risk Low
Discharge Diagnosis/Procedures Infection of internal L TK prosthesis s/p 1st
stage Revision of L TKA w/ Dr Strauss 04/03/24
Diet Regular
Activity As tolerated,With Walker
Driving Restrictions Not until seen by your Dr
Bathing Restrictions OK to Shower
Blood Work CBC with diff, CMP, ESR, CRP weekly on Mondays
x6 weeks w/ results to surgeon and Dr. Santiago
[facility].
Other Services PT
Wound Care Dressing to be removed 1 week post-surgery.
Instructions:
Stand-Alone Forms: Total Hip/Knee Replacement D/C
Changes to Home Medications: Yes
Discharge Medications:
DC Medications w/original date entered in [employer]
levothyroxine 88 mcg tablet (Synthroid) 88 mcg PO DAILY Thyroid 07/03/22
Saccharomyces boulardii 250 mg capsule 250 mg PO BID #90 caps 04/05/24
aspirin 325 mg tablet 325 mg PO DAILY #30 tabs 04/05/24
cefazolin 10 gram solution for injection 2 g IV Q8H@0600,1400,2200 #123 ea 04/05/24
docusate sodium 100 mg capsule (Colace) 100 mg PO BID PRN constipation #30 caps 04/05/24
famotidine 20 mg tablet 20 mg PO HS #30 tabs 04/05/24
gabapentin 100 mg capsule 200 mg (2 x 100 mg) PO TID neuropathic pain #30 caps 04/05/24
ondansetron HCl 4 mg tablet 4 mg PO Q6H PRN nausea and vomiting #30 tabs 04/05/24
oxycodone 5 mg tablet 5 - 10 mg (1 - 2 x 5 mg) PO Q6H PRN moderate-severe pain #30 tabs 04/05/24
sennosides 8.6 mg tablet (senna) 17.2 mg (2 x 8.6 mg) PO BID PRN Constipation #30 tabs 04/05/24
Home Medication Changes
Saccharomyces boulardii 250 mg capsule 250 mg PO BID #90 caps 04/05/24
aspirin 325 mg tablet 325 mg PO DAILY #30 tabs 04/05/24
cefazolin 10 gram solution for injection 2 g IV Q8H@0600,1400,2200 #123 ea 04/05/24
docusate sodium 100 mg capsule (Colace) 100 mg PO BID PRN constipation #30 caps 04/05/24
famotidine 20 mg tablet 20 mg PO HS #30 tabs 04/05/24
gabapentin 100 mg capsule 200 mg (2 x 100 mg) PO TID neuropathic pain #30 caps 04/05/24
ondansetron HCl 4 mg tablet 4 mg PO Q6H PRN nausea and vomiting #30 tabs 04/05/24
oxycodone 5 mg tablet 5 - 10 mg (1 - 2 x 5 mg) PO Q6H PRN moderate-severe pain #30 tabs 04/05/24
sennosides 8.6 mg tablet (senna) 17.2 mg (2 x 8.6 mg) PO BID PRN Constipation #30 tabs 04/05/24
Pending Results: Yes (Hep B testing )
[2024-04-05 11:28] VITALS: BP 148/70
--- NOTE | 2024-04-05 11:39 | CM ---
met with patient and family at bedside.patient is being dc home on iv abx.he will rceeive his 2pm does of iv abx at home.he will be serviced by karyn rodriguez and rachelle.
fax number for [facility] is [phone] and rachelle vn fax is [phone].
== END 2024-04-05 12:03 | disposition home health service (06) | DRG 465 ==
LOC: 2 SOUTH 10:35
PROVIDERS: Nurse Practitioner; Physician Assistant; ADMITTING PHYSICIAN Specialist; OTHER PHYSICIAN Internal Medicine Gastroenterology; OTHER PHYSICIAN Internal Medicine Infectious Disease
PROC: 0SPD0JZ Removal of Synthetic Substitute from Left Knee Joint, Open Approach (ICD-10-PCS; 2024-04-03)
PROC: 0SHD08Z Insertion of Spacer into Left Knee Joint, Open Approach (ICD-10-PCS; 2024-04-03)
DX: T84.54XA Infection and inflammatory reaction due to internal left knee prosthesis, initial encounter (principal); E03.9 Hypothyroidism, unspecified; F32.A Depression, unspecified; I10 Essential (primary) hypertension; K76.0 Fatty (change of) liver, not elsewhere classified; I73.9 Peripheral vascular disease, unspecified; Y79.2 Prosthetic and other implants, materials and accessory orthopedic devices associated with adverse incidents; E78.00 Pure hypercholesterolemia, unspecified; K64.8 Other hemorrhoids; B95.7 Other staphylococcus as the cause of diseases classified elsewhere; N40.0 Benign prostatic hyperplasia without lower urinary tract symptoms; N52.9 Male erectile dysfunction, unspecified; I87.2 Venous insufficiency (chronic) (peripheral); I45.10 Unspecified right bundle-branch block; M50.30 Other cervical disc degeneration, unspecified cervical region; H91.90 Unspecified hearing loss, unspecified ear; N20.0 Calculus of kidney; I44.4 Left anterior fascicular block; R79.89 Other specified abnormal findings of blood chemistry; E87.5 Hyperkalemia; R19.7 Diarrhea, unspecified; Z79.890 Hormone replacement therapy; Z86.73 Personal history of transient ischemic attack (TIA), and cerebral infarction without residual deficits; Z87.19 Personal history of other diseases of the digestive system; Z90.49 Acquired absence of other specified parts of digestive tract; Z86.0100 Personal history of colon polyps, unspecified; Z88.5 Allergy status to narcotic agent; Z91.040 Latex allergy status; Z80.0 Family history of malignant neoplasm of digestive organs
CPT/HCPCS: 71045; 73560; 80053; 85027; 85652; 86140; 87517; 97110; 97116; 97162; 97166; 97535; C1713; C1776

== ENCOUNTER 2024-04-17 23:05 | Inpatient (IN) | payer MEDICARE, OTHER, SELFPAY ==
[2024-04-17] VITALS (14 sets, daily range): BP systolic 104–127; BP diastolic 52–67; BMI 23.3
--- NOTE | 2024-04-17 19:29 | ED.GENMED ---
History of Present Illness
General
Chief Complaint: Abdominal Symptoms
Source: patient
Exam Limitations: none
Time Seen by Provider: 04/17/24 19:15
History of Present Illness
History of Present Illness:
See MDM
Past History
Past History
ED Past Medical History: Other (diverticulitis, Kidney stones,)
ED Past Surgical History: Bowel resection (for Diverticulitis) and Cholecystectomy
Social History
Tobacco: Non-smoker
Alcohol: Daily (wine 2 glasses)
Drug: None
Personal:
Living: with family
Phy Exam
Physical Exam
Physical Exam:
See MDM
Sepsis
Sepsis Screening
Sepsis Assessment: Sepsis
Sepsis Screen
Sepsis Screen: Sepsis
Date: 04/17/24
Time: 22:10
Course
Orders/Labs/Results
Orders:
Orders
04/17/24 19:07
EKG [Electrocardiogram (*1)] Urgent
Reason for Study: Tachycardia
Other Reason for Exam: vomitting blood
Cardiac Monitoring- Treatment ONCE
IV Insert/Care/Rem.- Treatment PRN
O2 Therapy [RESP] Urgent
Titrate/Wean O2 to maintain O2 sat greater than (%): 93
Special Instructions: MAINTAIN CONTINOUS O2 SATS > OR = 93%
Pulse Ox/spot Check [RESP] Urgent
Quantity: 1
Special Instructions: ON ROOM AIR
04/17/24 19:08
EKG- Treatment ONCE
04/17/24 19:26
Electrocardiogram (*1) Urgent
Reason for Study: Tachycardia
0.9% Sodium Chloride 1000 ml [Nss] 1,000 ml IV BOLUS
04/17/24 19:27
Type+Screen Urgent
CT Abd/pelvis W Iv Cont Urgent
Comment:
Reason For Exam: abd pain, rectal bleed
Complete Blood Count/With Diff Urgent
Comprehensive Metabolic Panel Urgent
PTT Urgent
Prothrombin Time Urgent
04/17/24 19:30
Metoprolol [Lopressor] 5 mg IV NOW STA
04/17/24 21:06
Acetaminophen [Tylenol] 1,000 mg .ROUTE .STK-MED ONE
04/17/24 21:24
CR Chest - 2 Views Urgent
Comment:
Reason For Exam: PICC line placement
04/17/24 21:41
Acetaminophen [Tylenol] 1,000 mg PO NOW STA
04/17/24 21:50
Lactic Acid Q4H
Comment: CANCEL 2nd LACTIC ACID IF 1st LACTIC ACID IS LESS THAN 2
04/17/24 21:54
LevoFLOXacin 500 MG/100 ML [Levaquin] 500 mg in 100 ml IV NOW
MetroNIDAZOLE 500 MG/100 ML [Flagyl 500 mg] 100 ml IV NOW
04/17/24 22:00
CeFAZolin 2 GRAM [Ancef] 2 grams in 10 ml IV NOW
04/18/24 01:15
Lactic Acid Q4H
Comment: CANCEL 2nd LACTIC ACID IF 1st LACTIC ACID IS LESS THAN 2
Abnormal Lab Results
04/17/24
19:27
RBC 4.24 L 10^6/uL
(4.70-6.10)
Hct 38.3 L %
(39.0-52.0)
MCH 31.6 H pg
(27.0-31.0)
RDW 15.2 H %
(11.5-14.5)
MPV 11.9 H fL
(7.4-10.4)
Abs Immat Gran (auto) 0.1 H 10^3/uL
(0-0.05)
Absolute Neuts (auto) 10.0 H 10^3/uL
(1.4-6.5)
Absolute Lymphs (auto) 0.3 L 10^3/uL
(1.2-3.4)
Immature Gran % 0.7 H %
(0-0.5)
Neutrophils % 93.0 H %
(42.2-75.2)
Lymphocytes % 2.3 L %
(20.5-51.1)
APTT 38.9 H Sec
(23.4-35.0)
Carbon Dioxide 17 L mmol/L
(22-30)
Glucose 136 H mg/dl
(70-99)
Total Bilirubin 2.2 H mg/dl
(0.2-1.3)
AST 236 H U/L
(17-59)
ALT 59 H U/L
(0-50)
Alkaline Phosphatase 464 H U/L
(38-126)
Albumin 3.4 L g/dl
(3.5-5.0)
04/17/24 19:27
04/17/24 19:27
Vital Signs
Initial and Last Documented VS:
Initial Vital Signs
Pulse Resp BP
139 23 127/60
04/17/24 19:14 04/17/24 19:14 04/17/24 19:14
Last Documented Vital Signs
Temp Pulse Resp BP Pulse Ox
101.8 F H 106 22 117/59 97
04/17/24 21:04 04/17/24 20:20 04/17/24 20:20 04/17/24 20:20 04/17/24 20:20
MDM/Problems Addressed
Differential Diagnosis Includes:
HPI and MDM Narrative:
84-year-old female presenting for evaluation of rectal bleeding. Patient was recently admitted as he is undergoing a revision of total left knee replacement as it is currently infected. Patient recently had the first revision and was discharged.
He had outpatient follow-up today and was told everything looked okay. He has a PICC and is currently receiving cefazolin at home. Family had noted that he has been more confused lately. He went to the bathroom today and noted that there was
significant amount of bright rectal bleeding in his pants in the toilet. She department for evaluation. Patient is not on blood thinners. He has a soft and minimally tender abdominal exam. Patient found to be tachycardic but extremely regular
with concern for underlying a flutter. Will start IV fluids and obtain CT abdomen/pelvis. Will ultimately admit given his rectal bleeding and tachycardia
Physical exam
General: Weak and fatigued
HEENT: protecting airway
Neck: appears supple
CV: No evidence of cyanosis. Tachycardic and regular
Resp: No accessory muscle use
Abd: Non-distended. Soft. Minimally tender
Extremities: Left knee incision is clean and intact
Neuro: alert
Psych: Normal affect
Skin: Intact
Problems Addressed including Acute and Chronic Conditions affecting care:
1. Rectal bleeding
Acuity: acute
Prognosis: stable
Details: Will obtain hemoglobin testing and will obtain CT abdomen/pelvis
2. Tachycardia
Acuity: acute
Prognosis: stable
Details: Potentially underlying a flutter. Will give fluids and metoprolol. He is not a cardioversion candidate
Updates
CT concerning for diverticulitis. Given the rectal bleeding with fever, will start IV antibiotics and admit
Differential Diagnosis (but not limited to): A flutter, diverticulosis, stress ulcer
Testing considered: Troponin
Drug therapy (if applicable): OTC meds, please see d/c instruction regarding Rx drugs
Amount and/or Complexity of Data Reviewed
Clinical info obtained from: Patient
External data reviewed: Recent admission for left total knee revision. Patient started on IV cefazolin through PICC line
Labs I independently reviewed (but not limited to): Elevate LFTs, white blood cell count normal
Radiology: The CT scan was personally and independently reviewed. In addition, official CT report reviewed.
Pulse Ox: not hypoxic
EKG independently reviewed: Sinus tachycardia, normal axis, no STEMI
Vacuum Frame Operator: N/A
Critical Care: N/A
Risk of Complication:
Social Determinants of health: Good social support
Discussed with other providers: hospitalist
Escalation of Care includes Admit/Obs: Given the rectal bleeding with diverticulitis, will start IV antibiotics and admit
Occasional wrong word or 'sound a like' substitutions may have occurred due to the inherent limitations of voice recognition software. Read the chart carefully and recognize, using context, where substitutions have occurred.
*Critical Care Note
Total Time (30-74mins, 75-104mins- exclusive of procedures): Not Applicable
ED Attending Note
-
Portions of this chart may have been created with voice recognition software.� Occasional wrong word or��sound alike� substitutions may have occurred due to the inherent limitations of voice recognition software.
Discharge Plan
Departure
Patient Disposition: Admit
Date of Disposition: 04/17/24
Time of Disposition: 22:06
Presentation/result/management discussed w/ accepting MD/DO: Hospitalist
Patient with high blood pressure during this ER visit?: No
Discharge Problem:
Rectal bleeding, Diverticulitis large intestine
Prescriptions:
No Action
levothyroxine [Synthroid] 88 mcg Tablet
88 mcg PO DAILY
oxycodone 5 mg Tablet
5 mg PO DAILYPRN PRN (Reason: severe pain)
sennosides [senna] 8.6 mg tablet
17.2 mg PO BIDPRN PRN (Reason: Constipation)
aspirin 325 mg tablet
325 mg PO HS
ondansetron HCl 4 mg tablet
4 mg PO Q6HPRN PRN (Reason: nausea and vomiting)
cefazolin 10 gram recon soln
2 g IV Q8H@0700,1500,2300
docusate sodium [Colace] 100 mg capsule
100 mg PO BIDPRN PRN (Reason: constipation)
oxycodone 5 mg tablet
5 mg PO BID
Saccharomyces boulardii 250 mg capsule
250 mg PO BID
Patient Comments:
04/17/24: Supposed to take twice a day, but takes once a day due to hiding medication from family
Referrals:
Paul Ramirez MD [Family Provider] -
Interventions
Interventions:
*Risk Screen - Suicide Last Done: 04/17/24 19:30
*General Assessment Last Done: 04/17/24 19:30
*Neglect/Abuse Screening Last Done: 04/17/24 19:30
*ED COVID-19 Vaccine History Last Done: 04/17/24 19:30
OB-Civdvl-Nnerqgjdtw Assessment Last Done: 04/17/24 20:24
ED- Neurological Assessment Last Done: 04/17/24 20:24
ED Swallowing Screen Last Done: 04/17/24 20:24
Discharge Date and Time
Print Language: SYRIAC
[2024-04-17 19:46] LABS: % Basophils 0.5 % (0-2); % Eosinophils 0.3 % (0-6); % Immature Granulocytes 0.7 % (0-0.5); % Lymphocytes 2.3 % (20.5-51.1); % Monocytes 3.2 % (1.7-9.3); Absolute Basophils 0.1 10^3/uL (0-0.2); Absolute Immature Granulocytes 0.1 10^3/uL (0-0.05); Absolute Lymphocytes 0.3 10^3/uL (1.2-3.4); Absolute Monocytes 0.3 10^3/uL (0.1-0.6); Hematocrit 38.3 % (39.0-52.0); Hemoglobin 13.4 g/dL (13.0-18.0); Mean Corpuscular Hgb 31.6 pg (27.0-31.0); Mean Corpuscular Volume 90.3 fL (80.0-94.0); Mean Platelet Volume 11.9 fL (7.4-10.4); Nucleated Red Blood Cells % 0 % (-); Platelet Count 135 10^3/uL (130-400); Red Blood Cell Count 4.24 10^6/uL (4.70-6.10); Red Cell Dist. Width 15.2 % (11.5-14.5); White Blood Cell Count 10.8 10^3/uL (4.8-10.8)
[2024-04-17 19:51] LABS: INR 1.13; PT 14.3 Sec (11.4-14.6)
[2024-04-17 19:52] LABS: APTT 38.9 Sec (23.4-35.0)
[2024-04-17 20:00] LABS: ALT (SGPT) 59 U/L (0-50); AST (SGOT) 236 U/L (17-59); Albumin 3.4 g/dl (3.5-5.0); Alkaline Phosphatase 464 U/L (38-126); Blood Urea Nitrogen 20 mg/dl (9-20); Calcium 9.4 mg/dl (8.4-10.2); Carbon Dioxide 17 mmol/L (22-30); Chloride 107 mmol/L (98-107); Estimated Creatinine Clearance 61 ml/min; Glucose 136 mg/dl (70-99); Potassium 4.4 mmol/L (3.5-5.1); Sodium 139 mmol/L (135-145); Total Bilirubin 2.2 mg/dl (0.2-1.3); Total Protein 7.2 g/dl (6.3-8.2); eGFR > 60.00
[2024-04-17] MEDS: ANCEF 10 IV (20:05)
[2024-04-17] MEDS: LOPRESSOR 5 MG IV (20:11)
[2024-04-17] MEDS: NSS 1000 IV (20:14)
--- NOTE | 2024-04-17 22:08 | HPS.HSE ---
Family Physician
-
Family Physician: Paul Ramirez
Chief Complaint
-
Rectal bleeding
History of Present Illness
Patient is a 84-year-old male with past medical history significant for hypertension, hypothyroidism, and RBBB. Patient was brought to [facility] ED for evaluation for increased confusion and bright red rectal bleeding. Patient recently admitted to ""hospital for total knee revision r/t TKA being infected and was discharged home approximately 10 days ago. He has been at home with PICC in place for continued IV antibotic therapy for infection. Patients family states that the patient has been more
confused lately and that patients noted significant amount of blood in pants and toilet this afternoon.
Medical History
Past Medical History
Past Medical History: Reports Other
Additional Past Medical History:
Hypertension
Hypothyroidism
RBBB
Osteoarthritis
Past Surgical History: Reports Other
Additional Past Surgical History:
Left Knee TKA (02/23/2023)
Social History
Tobacco: Non-smoker
Alcohol: Former
Drug: None
Personal:
Living: With Family
Employment: Retired
Family History
Family History: Other (Brother: from liver ca)
Allergies / Home Medications
Allergies reflects when Allergies were last updated in [employer].
Home Medications with original date entered in [employer]
Allergy/Medication List:
Allergies
Allergy/AdvReac Type Severity Reaction Status Date / Time
latex Allergy LIPS AND Verified 04/17/24 19:06
GUMS
SWELLING
meperidine HCl [From Demerol] Allergy hallucinati Verified 04/17/24 19:06
ons
morphine [Morphine] Allergy hallucinati Verified 04/17/24 19:06
ons
Home Medications
levothyroxine 88 mcg tablet (Synthroid) 88 mcg PO DAILY Thyroid 07/03/22
Saccharomyces boulardii 250 mg capsule 250 mg PO BID 04/17/24
aspirin 325 mg tablet 325 mg PO HS 04/17/24
cefazolin 10 gram solution for injection 2 g IV Q8H@0700,1500,2300 04/17/24
docusate sodium 100 mg capsule (Colace) 100 mg PO BIDPRN PRN constipation 04/17/24
ondansetron HCl 4 mg tablet 4 mg PO Q6HPRN PRN nausea and vomiting 04/17/24
oxycodone 5 mg tablet 5 mg PO BID 04/17/24
oxycodone 5 mg tablet 5 mg PO DAILYPRN PRN severe pain 04/17/24
sennosides 8.6 mg tablet (senna) 17.2 mg PO BIDPRN PRN Constipation 04/17/24
Review of Systems
-
History Source: Patient and Family
Constitutional: Reports Fever
EENT: Reports No Symptoms
Respiratory: Reports No Symptoms
Cardiac: Reports No Symptoms
Abdomen/GI: Reports Nausea, Vomiting and Bloody Stools
: Reports No Symptoms
Musculoskeletal: Reports Joint Pain (right TKA revision, being treated for infection)
Skin: Reports No Symptoms
Neurological: Reports No Symptoms
Endocrine: Reports No Symptoms
Hematologic/Lymphatic: Reports No Symptoms
Psych: Reports No Symptoms
Physical Exam
Vital Signs
Vital Signs
Temp Pulse Resp BP Pulse Ox
101.8 F H 106 22 117/59 97
04/17/24 21:04 04/17/24 20:20 04/17/24 20:20 04/17/24 20:20 04/17/24 20:20
Physical Exam
General: Well Developed, Well Nourished, No Apparent Distress, Comfortable, Conversant and Fever
HEENT: NormoCephalic, Moist mucous membranes, Atraumatic, PERRLA, Wisner Conjunctivae, Nose Appears Normal and Ears Appear Normal
Respiratory: Clear and Non Labored Respirations; No Wheezes, Rales, Rhonchi or Crackles
Cardiac: S1/S2 and Regular Rhythm; No Murmur, Rub or Gallop
Breast: Deferred by me
GI: Soft, Non Distended, Normal Bowel Sounds and Tender (mildly tender); No Organomegaly
Rectal: Deferred by Provider
Genito-urinary: Deferred by me
Musculoskeletal: No Clubbing, No Cyanosis and No Edema
Skin: Warm, Dry and IV/Catheter Site; No Rash
Neuro: Awake, Alert and Nonfocal/grossly intact
Hematologic/Lymphatic: No Lymphadenopathy
Psych: Calm and Intact Judgment/Insight
Laboratory Results
-
04/17/24 19:
04/17/24 19:
Laboratory Results
PT 14.3 Sec (11.4-14.6) 04/17/24 19:
INR 1.13 04/17/24 19:
APTT 38.9 Sec (23.4-35.0) H 04/17/24 19:
Total Bilirubin 2.2 mg/dl (0.2-1.3) H 04/17/24 19:27
AST 236 U/L (17-59) H 04/17/24 19:27
ALT 59 U/L (0-50) H 04/17/24 19:27
Alkaline Phosphatase 464 U/L (38-126) H 04/17/24 19:27
Data Reviewed
-
CT Scan: Report Reviewed by me (Abd CT: Numerous colonic diverticula. Slight stranding of the fat adjacent to the distal descending colon, suggestive of mild diverticulitis. No evidence for abscess. No evidence of free intraperitoneal air. Hepatic
morphology and contour suggestive of cirrhosis. Splenomegaly. )
Medical Tests (Nuc Med, Echo, EKG etc): Report Reviewed by me (EKG: SINUS TACHYCARDIA RIGHT BUNDLE BRANCH BLOCK)
Lab Data: Labs Reviewed by me (Lactic 2.9, Roger 2.2, AST 236, ALT 59, Alk Phos 464)
Impression/Plan
-
IMPRESSION/PLAN:
#Sepsis
#Revision TKA 04/03/2024
#Left Knee TKA (02/23/2023)
#Osteoarthritis
- Admit to IMU
- Empric IV Zosyn
- ID Consult
#Acute Rectal Bleed vs. hematochezia
#dicerticulosis vs. C.Diff vs. ischemic colitis vs. AVM vs. hemorrhoids
- Admit to IMU
- check for C. Diff
- NPO with IVF
- T&S
- follow H/H
- c/w ASA for now
- GI consult
#Hypertension
- stable
#Hypothyroidism
- continue levothyroxine
#RBBB
- monitor on tele
Full Code
DVT Px: SCDs
[2024-04-17 22:11] LABS: Lactic Acid 2.9 mmol/L (0.7-2.0)
--- NOTE | 2024-04-17 22:15 | EDRN ---
Pt. and family refused tylenol, as pt. has had increasingly elevated liver enzymes. ED attending aware, per ED attending, pt. to receive IV fluids and antibiotics, as is bleeding and can also not get NSAIDs at this time.
--- NOTE | 2024-04-17 22:39 | W.PN.UPDATE ---
Update Note
Progress Note Update
HPI
84M from home [facility] with pw 1 episode of bloody stools per rectum with clots.
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 Now patientn is pw blood per rectum with clot
- Not on blood thinners
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
- patient becomes confused pwer family
- has PICC line at Rt arm
PHX
Diverticulitis , Kidney stones, BW resection for diverticulitis
Reviewed VS: T 101.8 ST 106 BP117/59 RR22
PE
General: Weak and fatigued
HEENT: protecting airway
Neck: appears supple
CV: No evidence of cyanosis. Tachycardic and regular
Resp: No accessory muscle use
Abd: Non-distended. Soft. Minimally tender
Extremities: Left knee incision is clean and intact
Neuro: alert
Psych: Normal affect
Skin: Intact
Data
nl WCC
CO2 17
nl eGFR nl Cr
TB 2.2
AST 236
ALT 59
AKP 464
CT Abd/pelvis W Iv Cont
Numerous colonic diverticula.
Slight stranding of the fat adjacent to the distal descending colon, suggestive of mild diverticulitis.
No evidence for abscess. No evidence of free intraperitoneal air.
Right renal pelvic calculus which is new from prior examination 2014.
No evidence for significant obstruction by CT.
There are additional right renal nephroliths, mainly in the lower pole.
Likely mild interstitial fibrosis in the visualized lower lungs.
Coronary artery calcifications. Please correlate with symptoms of and risk factors for coronary artery disease, with further workup as clinically appropriate.
Hepatic morphology and contour suggestive of cirrhosis. Splenomegaly.
Last hospitalist admission:
ASSESSMENT & PLAN
Severe sepsis suspect due to GI source
- LR IVF
- check LA
- Empiric IV Zosyn
- ID consult
Acute rectal bleed vs. hematochezia
DDx: Diverticulosis , C Diff colitis, ischemic colitis, AVM, Hemorrhoids
- check C Diff stool urgent
- NPO and IVF
- T & S
- Blood consent
- F/U H & H
- c/w ASA for now
- GI consult and ID evaluation
CT suggestive of mild diverticulitis
- IV Zosyn
- Hold IV Ancef
- IVF
- GI evaluation
At risk for C Diff colitis
- await stool for C Diff urgent
- Empiric PO Vancomycin 250mg q6H
- avoid PPI
- c/w probiotics
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
Recently DC'd on 04/03/24 from ortho service
DC'd on IV Cefazolin 2gm q8h as 04/03/24
- CRP, ESR q Wednesday
- ID follow up
DVT Px: SCD
Full code
IMU
[2024-04-18] VITALS (15 sets, daily range): BP systolic 103–164; BP diastolic 55–96; PULSE 91–96; BMI 22.9
[2024-04-18] MEDS: LR 1000 IV ×3 (00:52→22:56)
[2024-04-18] MEDS: FIRVANQ 125 MG PO ×2 (02:20→06:18)
[2024-04-18 02:30] LABS: Hemoglobin 11.4 g/dL (13.0-18.0)
[2024-04-18 02:36] LABS: Lactic Acid 1.9 mmol/L (0.7-2.0)
--- NOTE | 2024-04-18 04:02 | PTCARENOTE ---
Pt AAOx3, Pt vitals stable at this time. No fever at this time. Call whitaker within reach. Assessment care and vitals as charted.
[2024-04-18] MEDS: ZOSYN 100 IV (06:07)
[2024-04-18] MEDS: SYNTHROID 88 MCG PO (06:07)
[2024-04-18 06:33] LABS: Hematocrit 31.6 % (39.0-52.0); Hemoglobin 10.9 g/dL (13.0-18.0); Mean Corp Hgb Conc. 34.5 g/dL (33.0-37.0); Mean Corpuscular Hgb 32.5 pg (27.0-31.0); Mean Corpuscular Volume 94.3 fL (80.0-94.0); Platelet Count 122 10^3/uL (130-400); Red Blood Cell Count 3.35 10^6/uL (4.70-6.10); Red Cell Dist. Width 15.3 % (11.5-14.5)
[2024-04-18 06:44] LABS: ALT (SGPT) 46 U/L (0-50); AST (SGOT) 145 U/L (17-59); Albumin 2.7 g/dl (3.5-5.0); Alkaline Phosphatase 304 U/L (38-126); Blood Urea Nitrogen 22 mg/dl (9-20); Calcium 8.8 mg/dl (8.4-10.2); Carbon Dioxide 23 mmol/L (22-30); Chloride 109 mmol/L (98-107); Estimated Creatinine Clearance 68 ml/min; Glucose 107 mg/dl (70-99); Potassium 4.6 mmol/L (3.5-5.1); Sodium 140 mmol/L (135-145); Total Bilirubin 1.5 mg/dl (0.2-1.3); eGFR > 60.00
--- NOTE | 2024-04-18 08:17 | W.PN.HOSP.TC ---
Today's Communication/Plan
-
Monitor hemoglobin
GI consult
Continue antibiotics
ID consult
Assessment / Plan
Assessment / Plan
Gen-AAOx3, NAD
HEENT-NC, AT, anicteric, clear oral mm
Neck-supple
CV-reg, no M, +S1/S2
Lungs-clear B/L
Abd-soft, NT, ND
Ext-no edema
Musculoskeletal-no cyanosis, clubbing
Skin-warm and dry
Neuro-grossly non-focal
Psych-calm, cooperative
Acute TME -possibly due to sepsis.
Acute lower GI bleed -hemodynamically stable. Most likely diverticular bleed. Monitor hemoglobin closely. GI consulted, currently NPO. Last colonoscopy 2020 with diverticulosis and colonic polyps.
Acute blood loss anemia -baseline hemoglobin 13, down to 10.9 this morning. Consent for potential transfusion obtained.
Sepsis -presentation with fever, leukocytosis. Blood culture sent last night, continue empiric Zosyn. Started empiric oral vancomycin. ID consulted. 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 End
date was May 15. Has a PICC line in place.
Acute thrombocytopenia -122k today. Suspect related to consumption, bleeding. Monitor for now.
Hypothyroidism
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 Underwent first stage revision 04/03 by orthopedics.
Cirrhosis -still drinks alcohol. High AST to ALT ratio. Has had poor outpatient follow-up with GI service.
Full code
Anticipated Discharge: > 48 hours
Subjective/Interval History
-
Date of Service: April 18, 2024
Patient seen and examined. No complaints currently.
Objective Data
-
Labs:
Laboratory Results
04/18/24 04/18/24 04/18/24
02:06 06:02 06:02
WBC 14.0 H
Hgb 11.4 L 10.9 L Cancelled
Hct 32.0 L 31.6 L
Plt Count
Sodium
Potassium
Chloride
Carbon Dioxide
BUN
Creatinine
Glucose
Calcium
Total Bilirubin
AST
ALT
Alkaline Phosphatase
04/18/24 04/18/24 04/18/24
06:02 13:30 19:30
WBC
Hgb Pending Pending
Hct Cancelled Pending Pending
Plt Count 122 L
Sodium 140
Potassium 4.6
Chloride 109 H
Carbon Dioxide 23
BUN 22 H
Creatinine 0.7
Glucose 107 H
Calcium 8.8
Total Bilirubin 1.5 H
AST 145 H
ALT 46
Alkaline Phosphatase 304 H
Vital Signs:
Vital Signs
Temp Pulse Resp BP Pulse Ox
97.6 F 85 16 122/68 98
04/18/24 04:53 04/18/24 06:00 04/18/24 06:00 04/18/24 06:00 04/18/24 06:00
I&O
04/17/24 04/18/24 04/19/24
06:59 06:59 06:59
Intake Total 600 / 600
Output Total 200 / 200
Balance 400 / 400
Review of Systems
-
History Source: Patient
All other systems: Reviewed and negative
[2024-04-18] MEDS: FLORASTOR 250 MG PO ×2 (08:36→19:47)
--- NOTE | 2024-04-18 09:11 | CON.GI ---
Addendum entered and electronically signed by Mendel Gibbs MD 04/18/24 19:18:
I saw and examined the patient.
The COMPUTER PROGRAMMER's note was reviewed and I agree with the note.
84-year-old male with past medical history of hypothyroidism, osteoarthritis status post left total knee replacement in February 2023, colon polyps overdue for colonoscopy 09/2020, elevated LFTs dating back to 2007, BPH, nephrolithiasis,
diverticulitis with bowel resection who was treated for a left knee infection and is admitted to the hospital for first stage revision for left TKA 04/04/24 and DC 04/05/24 for to home with IV abx cefazolin 1 gm IV q 8 hrs for 6 weeks. He was also
DC on ASA 325 mg daily as well as oxycodone. He presents to the hospital now with confusion, fever, tachycardia and his noticed there was blood in his pants and toilet. We are asked to evaluate for rectal bleeding.
Impression:
Rectal bleeding. Likely diverticular bleeding. CT imaging possible diverticulitis. last colonoscopy 2020- details below
Fever
Infection of Left TKA with staph with first stage revision 04/03/24 on IV cefazolin as outpatient for 6 weeks
PICC line
Cirrhosis on imaging
Elevated LFTs
Plan:
Continue monitor H&H
Sepsis workup as per medical team
Continue antibiotic
Colonoscopy as outpatient in 8-12 weeks
Outpatient GI follow-up for further workup-liver cirrhosis
Original Note:
Consultation
-
Date/Time Consultation Requested: 04/18/2424
Date/Time Consultation Performed: 04/18/24 0830
Requesting Provider: VICKI Pierce
Performing Provider: Dr. Gibbs/VICKI Shane
Reason for Consultation: rectal Bleeding
Medical History
Chief Complaint / HPI
Chief Complaint: confusion
History of Present Illness:
84-year-old male with past medical history of hypothyroidism, osteoarthritis status post left total knee replacement in February 2023, colon polyps overdue for colonoscopy 09/2020, elevated LFTs dating back to 2007, BPH, nephrolithiasis,
diverticulitis with bowel resection who was treated for a left knee infection and is admitted to the hospital for first stage revision for left TKA 04/04/24 and DC 04/05/24 for to home with IV abx cefazolin 1 gm IV q 8 hrs for 6 weeks. He was also
DC on ASA 325 mg daily as well as oxycodone. He presents to the hospital now with confusion, fever, tachycardia and his noticed there was blood in his pants and toilet. We are asked to evaluate for rectal bleeding. The patient does state that
he had an episode of rectal bleeding however cannot quantify or state to us how long this has been going on. There is been no signs of bleeding while here at the hospital. He has no abdominal pain. The patient although awake and oriented to
person and place is not at his baseline as I saw him on his prior hospitalization. At that time we saw the patient at that time at the request of his PCP for elevated LFTs that have been present since 2007 however increased since September 2023. No
acute signs of significant change since that time. Unfortunately the patient's closest brother 1 month ago of liver cancer. They were unaware that he even had a until just prior to his demise. Going back in patient's prior records he
had mildly elevated AST and ALT going back until 2007. No records available to me prior to that. In [id number] there were no liver enzymes that were performed however in September 2023 he did have a jump in his liver enzymes with total bilirubin total
bilirubin 1.4, AST 314, ALT 405 and alk phos 153 these were repeated 1 month later that showed total bilirubin 1.2, AST 311, ALT 397 alk phos 144. He did have an ultrasound of the right upper quadrant that showed fatty liver. He had a negative
alpha 1 antitrypsin. Viral hepatitis studies were performed in October that showed hepatitis A antibody total that was positive (immune), hepatitis B surface antigen negative, hepatitis B surface antibody negative, hepatitis B core total antibody
reactive hepatitis B quantitative not detected,. The patient's was with him at bedside. She states that when she was in her 20s she was admitted to the hospital for some form of 'hepatitis'. And that she stayed in the hospital for almost 2
months. She is unsure what type of hepatitis she had. The patient himself would drink approximately 2 glasses of wine daily. Never anything heavier than this. He has not had anything to drink for at least [address] abdomen
pelvis with IV contrast shows numerous colonic diverticula. Slight stranding of the fat adjacent to the distal descending colon, suggesting of mild diverticulitis. No evidence for abscess. No evidence of free intraperitoneal air. Right renal
pelvic calculus which is new from prior exam 2014. No significant obstruction. Additional right renal nephrolith mainly in the lower pole. Likely mild interstitial fibrosis in the lower lungs. Coronary artery calcifications. Hepatic morphology
and contour suggestive of cirrhosis. Splenomegaly. WBC 14.0, hemoglobin 10.9 down from 13.4, hematocrit 31.6, platelets 122, PT 14.3, INR 1.13, sodium 140, potassium 4.6, chloride 109, CO2 23, BUN 22, creatinine 0.7, glucose 107, lactic acid 1.9
(down from 2.9), total bilirubin 1.5 (down from 2.2), AST 145 down from 236, ALT 46 down from 59, alk phos 304 down from 464
Past Medical History
Past Medical History: HTN, Hypercholesterolemia, Hypothyroidism and Other (Osteoarthritis, elevated LFTs, colon polyps)
Past Surgical History: Orthopedic (Colon resection, left total knee arthroscopy (02/23/2023))
Social History
Tobacco: Non-Smoker
Alcohol: Former
Drug: None
Personal:
Living: With Family
Employment: Retired
Family History
Family History: Other (Brother recently 2 weeks ago liver cancer, no other family history of gastrointestinal malignancies or IBD)
Allergies / Home Medications
Allergy/AdvReac Type Severity Reaction Status Date / Time
latex Allergy LIPS AND Verified 04/17/24 19:06
GUMS
SWELLING
meperidine HCl [From Demerol] Allergy hallucinati Verified 04/17/24 19:06
ons
morphine [Morphine] Allergy hallucinati Verified 04/17/24 19:06
ons
�Medication �Instructions �Recorded
levothyroxine 88 mcg tablet 88 mcg PO DAILY Thyroid 07/03/22
(Synthroid)
Saccharomyces boulardii 250 mg 250 mg PO BID Gastrointestinal 04/17/24
capsule Issue
aspirin 325 mg tablet 325 mg PO HS Blood Clot 04/17/24
Prevention/Tx
cefazolin 10 gram solution for 2 g IV Q8H@0700,1500,2300 Infection 04/17/24
injection
docusate sodium 100 mg capsule 100 mg PO BIDPRN PRN constipation 04/17/24
(Colace)
ondansetron HCl 4 mg tablet 4 mg PO Q6HPRN PRN nausea and 04/17/24
vomiting
oxycodone 5 mg tablet 5 mg PO BID 04/17/24
oxycodone 5 mg tablet 5 mg PO DAILYPRN PRN severe pain 04/17/24
sennosides 8.6 mg tablet (senna) 17.2 mg PO BIDPRN PRN Constipation 04/17/24
Review of Systems
-
All other systems: A 12 pt ROS was Negative except as stated above in HPI
Vital Signs
Temp Pulse Resp BP Pulse Ox
97.6 F 85 16 122/68 98
04/18/24 04:53 04/18/24 06:00 04/18/24 06:00 04/18/24 06:00 04/18/24 06:00
Physical Exam
Exam
General: No Apparent Distress
HEENT: Anicteric
Respiratory: Clear
Cardiac: Regular Rhythm
GI: Soft, Non Tender, Non Distended and Normal Bowel Sounds
Musculoskeletal: Other (dressing on left knee)
Skin: Warm and Dry
Neuro: Awake, Alert and Oriented
Psych: Calm
Results
WBC 14.0 10^3/uL (4.8-10.8) H 04/18/24 06:02
Hgb 10.9 g/dL (13.0-18.0) L 04/18/24 06:02
Hgb Cancelled 04/18/24 06:02
Hct 31.6 % (39.0-52.0) L 04/18/24 06:02
Hct Cancelled 04/18/24 06:02
MCV 94.3 fL (80.0-94.0) H 04/18/24 06:02
Plt Count 122 10^3/uL (130-400) L 04/18/24 06:02
Absolute Neuts (auto) 10.0 10^3/uL (1.4-6.5) H 04/17/24 19:27
PT 14.3 Sec (11.4-14.6) 04/17/24 19:27
INR 1.13 04/17/24 19:27
APTT 38.9 Sec (23.4-35.0) H 04/17/24 19:27
Sodium 140 mmol/L (135-145) 04/18/24 06:02
Potassium 4.6 mmol/L (3.5-5.1) 04/18/24 06:02
Chloride 109 mmol/L (98-107) H 04/18/24 06:02
Carbon Dioxide 23 mmol/L (22-30) 04/18/24 06:02
BUN 22 mg/dl (9-20) H 04/18/24 06:02
Creatinine 0.7 mg/dL (0.7-1.3) 04/18/24 06:02
Calcium 8.8 mg/dl (8.4-10.2) 04/18/24 06:02
Total Bilirubin 1.5 mg/dl (0.2-1.3) H 04/18/24 06:02
AST 145 U/L (17-59) H 04/18/24 06:02
ALT 46 U/L (0-50) 04/18/24 06:02
Alkaline Phosphatase 304 U/L (38-126) H 04/18/24 06:02
Diagnostic Image Results:
CT abd/Pelvis: IMPRESSION: Numerous colonic diverticula. Slight stranding of the fat adjacent to the distal descending colon, suggestive of mild diverticulitis. No evidence for abscess. No evidence of free intraperitoneal air.
Right renal pelvic calculus which is new from prior examination 2014. No evidence for significant obstruction by CT. There are additional right renal nephroliths, mainly in the lower pole.
Likely mild interstitial fibrosis in the visualized lower lungs.
Coronary artery calcifications. Please correlate with symptoms of and risk factors for coronary artery disease, with further workup as clinically appropriate.
Hepatic morphology and contour suggestive of cirrhosis. Splenomegaly
Prior GI Procedures:
EGD: Never had
Colonoscopy: 10/11/2020 ([facility]) - Preparation of the colon was fair.
- One 4 mm polyp in the cecum, removed with a cold
snare. Resected and retrieved.
- One 6 mm polyp in the transverse colon, removed with
a cold snare. Resected and retrieved.
- Diverticulosis in the sigmoid colon, in the
descending colon, in the transverse colon and in the
ascending colon.
- Non-bleeding internal hemorrhoids.
- Suspect bleeding is likely diverticular as it has
resolved:
Assessment / Plan
-
84-year-old male with past medical history of hypothyroidism, osteoarthritis status post left total knee replacement in February 2023, colon polyps overdue for colonoscopy 09/2020, elevated LFTs dating back to 2007, BPH, nephrolithiasis,
diverticulitis with bowel resection who was treated for a left knee infection and is admitted to the hospital for first stage revision for left TKA 04/04/24 and DC 04/05/24 for to home with IV abx cefazolin 1 gm IV q 8 hrs for 6 weeks. He was also
DC on ASA 325 mg daily as well as oxycodone. He presents to the hospital now with confusion, fever, tachycardia and his noticed there was blood in his pants and toilet. We are asked to evaluate for rectal bleeding.
Impression:
Rectal bleeding
Fever
Infection of Left TKA with staph with first stage revision 04/03/24 on IV cefazolin as outpatient for 6 weeks
PICC line
Cirrhosis on imaging
Elevated LFTs
Plan:
-Await blood cultures
-Trend labs CBC and LFTs
-Antibiotics on board
-Check Salicylate, Tylenol and UDS with change in mental status
-If with diarrhea check for CDiff
-Overdue for colonoscopy
-Patient was given outpatient labs to have performed and to have outpatient appt after DC including GAYE, AMA, ASMA, ceruloplasmin, celiac panel, iron, ferritin, anti-LK M1 antibody
-Given office follow-up on discharge instructions to patient last admission.
-
-
Thank you for consultation and allowing me to participate in the patient's care. Please call the electrical parts reconditioner GI physician during the after hours with any questions or concerns.
--- NOTE | 2024-04-18 10:51 | CON.ID ---
Consultation
-
Date/Time Consultation Requested: April 18, 2024 0025
Date/Time Consultation Performed: April 18, 2024 1050
Requesting Provider: Dr. Danny Freeman
Performing Provider: Dr. Pamela Hall
Reason for Consultation: Rectal bleeding
Chief Complaint / Past History
Chief Complaint
Rectal bleed
History of Present Illness
84 year old male with hypothyroidism, OA recently hospitalized with Staphylococcus epidermidis left knee PJI status post stage I of 2 revision on April 03, 2024. She was discharged to home on IV cefazolin planning for 6 weeks. Per he was
doing well at home tolerating the IV antibiotic. Yesterday he was fine and went to orthopedics office and had stitches removed. He went home had soft boiled egg, oatmeal and tea for lunch. At 3 PM his . Administered the IV cefazolin. 30
minutes later she noted that the patient was having shaking chills which resolved. Last night, he told his that he had the urge to defecate but too weak to get up. His told him to go ahead and have bowel movement in bed and she would
change his pants. When she remove his pants, she noted esau blood without stool. Patient was also confused. She called EMS who brought him to the hospital last night. CAT scan of the abdomen pelvis showed severe diverticulosis with possible mild
diverticulitis. He spiked temperature to 101.8 last night. Today the white count increased to 14. Hemoglobin has dropped. Today patient's mental status has improved. He could not recall events last night. He reports no abdominal pain. He eats
home-cooked meals. No ill contacts. His left knee is stable with residual pain. Last colonoscopy was September 2020 when he had rectal bleeding with findings of diverticulosis, 2 polyps and small internal hemorrhoids.
Past History
Additional Past Medical History:
HTN
hypothyroidism
Erectile dysfunction
Elevated LFT's
BPH
Nephrolithiasis
Diverticulitis w/ perforated bowel s/p remote colon resection
Venous insufficiency
Depression
Cerebellar infarct on MRI
Right knee OA - treating with steroid injections
[place]23[place]2023[place] [place] P[place]I s/p removal 04/03/24.
Allergy History:
latex Allergy (Verified 04/17/24 19:06)
LIPS AND GUMS SWELLING
meperidine HCl [From Demerol] Allergy (Verified 04/17/24 19:06)
hallucinations
morphine [Morphine] Allergy (Verified 04/17/24 19:06)
hallucinations
Medications Reviewed: Yes
Current Antibiotics:
Vancomycin
Zosyn
Social History
Tobacco: Non-Smoker
Alcohol: Former (2 to 3 glasses of wine daily, stopped 6 months ago)
Drug: None
Personal:
Living: With Family
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
Family History
Family History: Not Pertinent
Review of Systems
Review of Systems
General: Chills and Change in Appetite; Negative Fever
HEENT: Negative Sinus Problems, Headache or Pharyngitis
Cardiovascular: Negative Chest Pain or Dyspnea
Respiratory: Negative Dyspnea or Cough
Gasteroenterology: Vomiting (after taking aspirin); Negative Diarrhea
Genital / Urological: Negative Dysuria or Flank Pain
Endocrine: Weakness
Skin / Hair / Nails: Negative Rash
Neurological: Negative Headache or Dizziness
All systems: All other systems were reviewed and were negative
Vital Signs
Temp Pulse Resp BP Pulse Ox
98.3 F 77 19 112/58 96
04/18/24 07:10 04/18/24 10:00 04/18/24 10:00 04/18/24 10:00 04/18/24 10:36
Selected Entries
04/17/24
21:04
Temp 101.8 F H
Physical Exam
Physical Exam
Constitutional: No Acute Distress and Comfortable
Eyes: No Conjunctival Hemorrhage and Sclera Anicteric
Cardiovascular: Regular Rate and S1/S2
Pulmonary: Clear
Gastrointestinal: Soft, Non Tender, Non Distended, Normal Bowel Sounds and No Guarding
Genito-Urinary: Negative CVA Tenderness
Extremities: Negative Edema (LLE trace)
Musculoskeletal: Other (left knee with steristrips, no erythema/effusion)
Neurological: AO x 3
Lines: PICC (RUE no erythema)
Lab / Diagnostic Study Results
04/18/24 06:02
Abs Immat Gran (auto) 0.1 10^3/uL (0-0.05) H 04/17/24 19:27
Absolute Neuts (auto) 10.0 10^3/uL (1.4-6.5) H 04/17/24 19:27
Absolute Lymphs (auto) 0.3 10^3/uL (1.2-3.4) L 04/17/24 19:27
Absolute Monos (auto) 0.3 10^3/uL (0.1-0.6) 04/17/24 19:27
Absolute Basos (auto) 0.1 10^3/uL (0-0.2) 04/17/24 19:27
Immature Gran % 0.7 % (0-0.5) H 04/17/24 19:27
Neutrophils % 93.0 % (42.2-75.2) H 04/17/24 19:27
Lymphocytes % 2.3 % (20.5-51.1) L 04/17/24 19:27
Monocytes % 3.2 % (1.7-9.3) 04/17/24 19:27
Eosinophils % 0.3 % (0-6) 04/17/24 19:
Basophils % 0.5 % (0-2) 04/17/24 19:27
PT 14.3 Sec (11.4-14.6) 04/17/24 19:
INR 1.13 04/17/24 19:27
Lactic Acid 1.9 mmol/L (0.7-2.0) 04/18/24 02:06
Microbiology Results
Micro:
04/18/24 02:06 Blood Culture - Pending
Blood/Venous
04/18/24 02:16 Blood Culture - Pending
Blood/Venous
04/18/24 02:06 MRSA Screen - Pending
Nose
04/17/24 CT a/p: Numerous colonic diverticula. Slight stranding of the fat adjacent to the distal descending colon, suggestive of mild diverticulitis. No evidence for abscess. No evidence of free intraperitoneal air.
Assessment / Plan
# Rectal bleeding
# blood loss anemia
# Possible mild diverticulitis on CT
-likely diverticular bleed, as previous
-Narrow Vanco/Zosyn to cefazolin/metronidazole
# Fever and leukocytosis due to acute rectal bleed
- Follow blood cx's
- Trend temps/wbc
# Late left knee PJI
- 04/03/24 s/pf irst stage knee revision
- Continue Cefazolin 2g IV q8h x 6 weeks through 05/15/24.
[2024-04-18] MEDS: ANCEF 10 IV ×2 (13:49→22:20)
--- NOTE | 2024-04-18 14:31 | CM ---
Addendum entered by Guadalupe Doshi RN 04/18/24 15:08:
Message from Sissy Cohn; Patient was receiving PT at home. reports need for assist with ADLs. Message to Dr Freeman requesting PT/OT Evals.
Plan follow up after seen by PT/OT.
Plan home with resumption home [facility] for home IV cefazolin, with [facility].
Addendum entered by Guadalupe Doshi RN 04/18/24 14:58:
Plan home with resumption [facility] for home IV cefazolin, with [facility].
Original Note:
Patient with recent first stage revision of infected left TKA with Dx sepsis, lower GIB, anemia. Room air. PICC in place. Receiving IVF, IV cefazolin, PO Flagyl. Per nurse assessment; forgetful.
Met with patient, Radha, daughter Danica. Patient appears A/O and was conversing.
The patient resides with his in a split level house with 1 MIKE, 8 + 8 [address] stairs.
He has been assisted with ADLs by his and ambulating with his RW.
DME - RW, commode
The patient was receiving home IV cefazolin via PICC through [facility] and [facility].
No prior SNF.
PCP - Paul Ramirez
Pharmacy - [facility]
Patient/ would like to resume with [facility] and [facility] at d/c.
Spoke with Octavia Carter; they will be able to resume service. She will stop by and see the patient tomorrow. *Octavia Silva doesn't need another script for the IV cefazolin unless there are any changes, she just needs an MD order stating to
resume the IV Abx at d/c.
Spoke with Suki Sheehan; they will be able to resume service.
Plan home with resumption home [facility] for home IV cefazolin, with [facility].
--- NOTE | 2024-04-18 18:29 | PTCARENOTE ---
see nursing assessment. sinus rythym with BB configuration on monitor. pt tolerating full liquids. no stools this shift.
[2024-04-18 18:57] LABS: Amphetamines Negative (Negative); Barbiturates Negative (Negative); Benzodiazepines Negative (Negative); Buprenorphine Negative (Negative); Cocaine Negative (Negative); Marijuana Negative (Negative); Methadone Negative (Negative); Methamphetamines Negative (Negative); Opiates Negative (Negative); Phencyclidine Negative (Negative); Tricyclic Antidepressants Negative (Negative)
[2024-04-18 19:11] LABS: Fentanyl, Urine Negative (Negative)
[2024-04-18] MEDS: FLAGYL 500 MG PO (19:47)
--- NOTE | 2024-04-18 23:04 | PTCARENOTE ---
Received patient from previous RN. Patient is Aox3 and NSR on the monitor. On RA sating at 98%. Patient had a bloody BM in bedside commode. Patient has Lactated ringers running at 100 in the left wrist IV. Patient resting in bed with call whitaker in
reach.
[2024-04-19] VITALS (9 sets, daily range): BP systolic 142–170; BP diastolic 64–121; PULSE 117–123
[2024-04-19 04:25] LABS: Hematocrit 30.9 % (39.0-52.0); Hemoglobin 10.4 g/dL (13.0-18.0); Mean Corp Hgb Conc. 33.7 g/dL (33.0-37.0); Mean Corpuscular Hgb 30.8 pg (27.0-31.0); Mean Corpuscular Volume 91.4 fL (80.0-94.0); Platelet Count 102 10^3/uL (130-400); Red Blood Cell Count 3.38 10^6/uL (4.70-6.10); Red Cell Dist. Width 15.2 % (11.5-14.5); White Blood Cell Count 5.7 10^3/uL (4.8-10.8)
[2024-04-19 04:55] LABS: ALT (SGPT) 42 U/L (0-50); AST (SGOT) 128 U/L (17-59); Albumin 2.5 g/dl (3.5-5.0); Alkaline Phosphatase 251 U/L (38-126); Blood Urea Nitrogen 19 mg/dl (9-20); Calcium 8.7 mg/dl (8.4-10.2); Carbon Dioxide 26 mmol/L (22-30); Chloride 110 mmol/L (98-107); Estimated Creatinine Clearance 80 ml/min; Glucose 99 mg/dl (70-99); Potassium 3.9 mmol/L (3.5-5.1); Sodium 140 mmol/L (135-145); Total Bilirubin 1.2 mg/dl (0.2-1.3); Total Protein 5.9 g/dl (6.3-8.2); eGFR > 60.00
[2024-04-19] MEDS: SYNTHROID 88 MCG PO (06:03)
[2024-04-19] MEDS: ANCEF 10 IV ×2 (06:04→15:00)
--- NOTE | 2024-04-19 07:49 | W.PN.UPDATE ---
Update Note
Progress Note Update
I saw and evaluated Mr. Moore at the bedside this morning. He is 2 weeks s/p first stage revision left TKA under the direction of Dr. Strauss. He was doing well at his initial post-operative visit. He was admitted to due to mental status
changes and bright red blood per rectum. He is being worked up and managed by medicine and GI. He reports his knee is feeling well this morning. He denies any pain at present, or changes since his post-op visit. He has been on IV cefazolin per ID.
Directed exam of the left lower extremity reveals well approximated surgical incision, steri-strips in place. Expected post-operative edema about the left knee and lower extremity. No erythema, ecchymosis or lesions. No tenderness about the knee.
Calf soft and nontender. Neurovascularly intact distally. He is AAOx3 today.
Blood cx pending. Anemic to 10.4 today. Afebrile this AM.
Overall, I feel Ángel' knee is stable on exam today. We appreciate the assistance of all teams in care of this patient. It sounds like GI suspects diverticular bleeding, and plan for outpatient colonoscopy. They are continuing workup for liver
cirrhosis. Continue tx. Continue abx per ID, currently cefazolin and metronidazole. Please reach out with any additional orthopedic questions or concerns.
[2024-04-19] MEDS: LR 1000 IV (07:54)
[2024-04-19] MEDS: FLORASTOR 250 MG PO (07:55)
[2024-04-19] MEDS: FLAGYL 500 MG PO (07:55)
--- NOTE | 2024-04-19 08:38 | W.PN.HOSP.TC ---
Addendum entered and electronically signed by Danny Freeman DO 04/19/24 14:40:
Tolerating low residue diet.
Did well with PT/OT.
Stable for discharge. Eager to go home today. Family at the bedside and updated and children.
Follow-up with PCP and orthopedics.
Recheck labs as an outpatient.
Original Note:
Today's Communication/Plan
-
Advance to low residue diet
PT/OT
Assessment / Plan
Assessment / Plan
Gen-AAOx3, NAD
HEENT-NC, AT, anicteric, clear oral mm
Neck-supple
CV-reg, no M, +S1/S2
Lungs-clear B/L
Abd-soft, NT, ND
Ext-no edema
Musculoskeletal-no cyanosis, clubbing
Skin-warm and dry
Neuro-grossly non-focal
Psych-calm, cooperative
Acute TME -possibly due to sepsis. Mental status back to baseline.
Acute lower GI bleed -hemodynamically stable. Most likely diverticular bleed. Monitor hemoglobin closely. Last colonoscopy 2020 with diverticulosis and colonic polyps. GI consult noted. Hold off on further workup in the hospital, follow-up as
outpatient. Currently on full liquids, will advance diet. Discussed with GI service.
Last BM recorded as 04/18, brown and blood-tinged.
Acute blood loss anemia -hemoglobin stable, 10.4.
Sepsis -presentation with fever, leukocytosis. Fever resolved, last recorded at 04/17. Leukocytosis resolved. Back on IV cefazolin, metronidazole per ID. Blood cultures negative so far. C. difficile antigen positive, toxin negative. Denies
diarrhea.
Acute thrombocytopenia -102k today. Suspect related to consumption, bleeding. Monitor for now.
Hypothyroidism -continue levothyroxine.
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 Underwent first stage revision 04/03 by orthopedics.
Cirrhosis -patient denies drinking alcohol, states he last drank 1 year ago. High AST to ALT ratio. Has had poor outpatient follow-up with GI service.
Full code
PT/OT
Dispo - potential discharge over the next 24 hours if stable.
Anticipated Discharge: Within 24 hours
Subjective/Interval History
-
Date of Service: April 19, 2024
Patient seen and examined. No complaints.
Objective Data
-
Labs:
Laboratory Results
04/19/24
04:00
WBC 5.7
Hgb 10.4 L
Hct 30.9 L
Plt Count 102 L
Sodium 140
Potassium 3.9
Chloride 110 H
Carbon Dioxide 26
BUN 19
Creatinine 0.6 L
Glucose 99
Calcium 8.7
Total Bilirubin 1.2
AST 128 H
ALT 42
Alkaline Phosphatase 251 H
Vital Signs:
Vital Signs
Temp Pulse Resp BP Pulse Ox
98.0 F 87 18 155/74 96
04/19/24 05:13 04/19/24 05:04 04/19/24 05:04 04/19/24 05:04 04/19/24 05:04
I&O
04/18/24 04/19/24 04/20/24
06:59 06:59 06:59
Intake Total 600 / 600
Output Total 200 / 200 750 / 750
Balance 400 / 400 -750 / -750
Review of Systems
-
History Source: Patient
All other systems: Reviewed and negative
--- NOTE | 2024-04-19 10:26 | W.PN.GI.CBS2 ---
Today's Communication / Plan
-
low residual diet
outpatient GI follow up
Assessment / Plan
-
84-year-old male with past medical history of hypothyroidism, osteoarthritis status post left total knee replacement in February 2023, colon polyps overdue for colonoscopy 09/2020, elevated LFTs dating back to 2007, BPH, nephrolithiasis,
diverticulitis with bowel resection who was treated for a left knee infection and is admitted to the hospital for first stage revision for left TKA 04/04/24 and DC 04/05/24 for to home with IV abx cefazolin 1 gm IV q 8 hrs for 6 weeks. He was also
DC on ASA 325 mg daily as well as oxycodone. He presents to the hospital now with confusion, fever, tachycardia and his noticed there was blood in his pants and toilet. We are asked to evaluate for rectal bleeding.
Impression:
Rectal bleeding. Likely diverticular bleeding- resolving. CT imaging possible diverticulitis. last colonoscopy 2020- details below
Fever
Infection of Left TKA with staph with first stage revision 04/03/24 on IV cefazolin as outpatient for 6 weeks
PICC line
Cirrhosis on imaging
Elevated LFTs
Plan:
ok for low residual diet
Continue monitor H&H
Sepsis workup as per medical team
Continue antibiotic
Colonoscopy as outpatient in 8-12 weeks
Outpatient GI follow-up for further workup of liver cirrhosis
will s/o . please call us back if any questions
Total Time Spent with Patient (in minutes): 35
Subjective
Subjective
Date of Service: April 19, 2024
denies any abd pain . had a BM with small tinge of blood
Objective
Data Reviewed
Laboratory Data:
Laboratory Results
04/19/24 04:00
04/19/24 04:00
Laboratory Results
PT 14.3 Sec (11.4-14.6) 04/17/24 19:27
INR 1.13 04/17/24 19:27
APTT 38.9 Sec (23.4-35.0) H 04/17/24 19:27
Total Bilirubin 1.2 mg/dl (0.2-1.3) 04/19/24 04:00
AST 128 U/L (17-59) H 04/19/24 04:00
ALT 42 U/L (0-50) 04/19/24 04:00
Alkaline Phosphatase 251 U/L (38-126) H 04/19/24 04:00
Vital Signs and I&O:
Vital Signs
Temp Pulse Resp BP Pulse Ox
97.5 F 87 18 155/74 96
04/19/24 07:20 04/19/24 05:04 04/19/24 05:04 04/19/24 05:04 04/19/24 05:04
I&O
04/18/24 04/19/24 04/20/24
06:59 06:59 06:59
Intake Total 600 / 600
Output Total 200 / 200 750 / 750
Balance 400 / 400 -750 / -750
Physical Exam
Physical Exam
GI: Soft, Non Distended and Non Tender
--- NOTE | 2024-04-19 12:43 | W.PN.ID1 ---
Date of Service
Date of Service: April 19, 2024
Today's Communication
Continue metronidazole 500mg po bid through 04/24/24
Continue Cefazolin 2g IV q8h x 6 weeks through 05/15/24.
Assessment / Plan
# Lower GIB -likely diverticular bleed, as previous
# blood loss anemia
# Possible mild diverticulitis on CT
-Continue metronidazole 500mg po bid through 04/24/24
- Continue cefazolin as below.
# s/p Fever and leukocytosis (due to acute GIB)
- blood cx's neg to date
# Late left knee PJI
- 04/03/24 s/pf irst stage knee revision
- Continue Cefazolin 2g IV q8h x 6 weeks through 05/15/24.
# Additional Past Medical History:
HTN
hypothyroidism
Erectile dysfunction
Elevated LFT's
BPH
Nephrolithiasis
Diverticulitis w/ perforated bowel s/p remote colon resection
Venous insufficiency
Depression
Cerebellar infarct on MRI
Right knee OA - treating with steroid injections
Left TKA 02/23/2023-> Staph epi (MSSE) PJI s/p removal 04/03/24.
Chief Complaint
-: Other (GIB)
Subjective / Review of Systems
Feels good today. No diarrhea. Had blood tinged stool.
Vital Signs / Physical Exam
Vital Signs
Vital Signs
Temp Pulse Resp BP Pulse Ox
97.5 F 105 22 144/68 98
04/19/24 07:20 04/19/24 10:46 04/19/24 10:46 04/19/24 10:46 04/19/24 11:12
Physical Exam
Constitutional: No Acute Distress and Comfortable
Cardiovascular: Regular Rate and S1/S2
Pulmonary: Clear
Gastrointestinal: Soft, Non Tender and Non Distended
Extremities: Negative Edema
Neurological: AO x 3
Objective Data
Lab Data
Lab Results
04/19/24 04:00
04/19/24 04:00
PT 14.3 Sec (11.4-14.6) 04/17/24 19:27
INR 1.13 04/17/24 19:27
APTT 38.9 Sec (23.4-35.0) H 04/17/24 19:27
Estimated Creat Clear 80 ml/min 04/19/24 04:00
Lactic Acid 1.9 mmol/L (0.7-2.0) 04/18/24 02:06
Total Bilirubin 1.2 mg/dl (0.2-1.3) 04/19/24 04:00
AST 128 U/L (17-59) H 04/19/24 04:00
ALT 42 U/L (0-50) 04/19/24 04:00
Alkaline Phosphatase 251 U/L (38-126) H 04/19/24 04:00
Most recent labs reviewed.
Micro Results:
04/18/24 20:14 C. difficile GDH Antigen & Toxins - Final
Feces/Stool C. difficile antigen positive, toxin negative.
Clostridium difficile present, but toxin not detected.
Patient may be a carrier, colonized with nontoxinogenic
strain or the level of toxin in sample is below detection
limits. This information should be used in conjunction with
the patient's clinical history.
04/18/24 02:06 MRSA Screen - Final
Nose No Methicillin Resistant Staphylococcus aureus isolated.
04/18/24 02:06 Blood Culture - Preliminary
Blood/Venous No Growth in 24 hours- Final report to follow
04/18/24 02:16 Blood Culture - Preliminary
Blood/Venous No Growth in 24 hours- Final report to follow
04/17/24 CT a/p: Numerous colonic diverticula. Slight stranding of the fat adjacent to the distal descending colon, suggestive of mild diverticulitis. No evidence for abscess. No evidence of free intraperitoneal air.
--- NOTE | 2024-04-19 14:39 | W.DS.TRANS ---
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
-
Discharge Instructions:
Discharge Diagnosis/Procedures Diverticular bleed, diverticulitis, anemia
Diet Low Residue
Activity As tolerated,With assistance
Driving Restrictions No driving
Bathing Restrictions None
Instructions:
Stand-Alone Forms:
Changes to Home Medications: No
Discharge Medications:
DC Medications w/original date entered in [employer]
levothyroxine 88 mcg tablet (Synthroid) 88 mcg PO DAILY Thyroid 07/03/22
Saccharomyces boulardii 250 mg capsule 250 mg PO BID Gastrointestinal Issue 04/17/24
aspirin 325 mg tablet 325 mg PO HS Blood Clot Prevention/Tx 04/17/24
cefazolin 10 gram solution for injection 2 g IV Q8H@0700,1500,2300 Infection 04/17/24
docusate sodium 100 mg capsule (Colace) 100 mg PO BIDPRN PRN constipation 04/17/24
ondansetron HCl 4 mg tablet 4 mg PO Q6HPRN PRN nausea and vomiting 04/17/24
oxycodone 5 mg tablet 5 mg PO BID 04/17/24
oxycodone 5 mg tablet 5 mg PO DAILYPRN PRN severe pain 04/17/24
sennosides 8.6 mg tablet (senna) 17.2 mg PO BIDPRN PRN Constipation 04/17/24
metronidazole 500 mg tablet 500 mg PO BID #11 tabs 04/19/24
Home Medication Changes
Pending Results: No
--- NOTE | 2024-04-19 15:49 | CM ---
Addendum entered by Emily Brooks 04/19/24 16:14:
please fax to [facility] [phone] discharge summary and to [facility] [phone]. Family reviewed discharge plan and will transport patient home. CM will continue to follow for discharge planning needs.
Original Note:
Patient for discharge home today. Per chart notes patient to go home with [facility] to resume IV medication; no response from [facility] and after several attempts reached [facility] who stated that IV meds had been sent to patient yesterday but
the company was unaware of patient hospitalization. CM faxed clinicals to [facility] number [phone]. Updated order from ID physician included in clinicals. CM sent update to [facility] that patient was for discharge home and will review IMM with
patient. CM will continue to follow for discharge planning needs.
PLan;home with [facility] and [facility].
--- NOTE | 2024-04-19 17:23 | PTCARENOTE ---
pt discharged home, instructions reviewed with pt and . pt took signed d/c instrction sheet with rest of packet. pt left via wheelchair with and son.
== END 2024-04-19 17:17 | disposition home health service (06) | DRG 871 ==
LOC: IMU 23:05
PROVIDERS: Nurse Practitioner; Nurse Practitioner Family; ADMITTING PHYSICIAN Internal Medicine; ATTENDING PHYSICIAN Hospitalist; CONSULT PHYSICIAN Internal Medicine Gastroenterology; EMERGENCY PHYSICIAN Student in an Organized Health Care Education/Training Program; FAMILY PHYSICIAN Family Medicine; OTHER PHYSICIAN Internal Medicine Infectious Disease
DX: A41.9 Sepsis, unspecified organism (principal); G92.8 Other toxic encephalopathy; K57.33 Diverticulitis of large intestine without perforation or abscess with bleeding; D62 Acute posthemorrhagic anemia; T84.54XA Infection and inflammatory reaction due to internal left knee prosthesis, initial encounter; B15.9 Hepatitis A without hepatic coma; D69.6 Thrombocytopenia, unspecified; K74.60 Unspecified cirrhosis of liver; E03.9 Hypothyroidism, unspecified; F32.A Depression, unspecified; I10 Essential (primary) hypertension; K76.0 Fatty (change of) liver, not elsewhere classified; R65.20 Severe sepsis without septic shock; Y79.2 Prosthetic and other implants, materials and accessory orthopedic devices associated with adverse incidents; E78.00 Pure hypercholesterolemia, unspecified; I25.10 Atherosclerotic heart disease of native coronary artery without angina pectoris; I45.10 Unspecified right bundle-branch block; K64.8 Other hemorrhoids; M17.11 Unilateral primary osteoarthritis, right knee; N40.0 Benign prostatic hyperplasia without lower urinary tract symptoms; N52.9 Male erectile dysfunction, unspecified; I87.2 Venous insufficiency (chronic) (peripheral); R16.1 Splenomegaly, not elsewhere classified; R79.89 Other specified abnormal findings of blood chemistry; Z79.82 Long term (current) use of aspirin; Z79.890 Hormone replacement therapy; Z80.0 Family history of malignant neoplasm of digestive organs; Z88.5 Allergy status to narcotic agent; Z91.040 Latex allergy status; Z90.49 Acquired absence of other specified parts of digestive tract; Z86.73 Personal history of transient ischemic attack (TIA), and cerebral infarction without residual deficits; Z87.442 Personal history of urinary calculi; Z86.0100 Personal history of colon polyps, unspecified
CPT/HCPCS: 71046; 74177; 80053; 80306; 80307; 83605; 85014; 85018; 85025; 85027; 85610; 85730; 86850; 86900; 86901; 87040; 87070; 87324; 87449; 93005; 96361; 96365; 96375; 97163; 97167; 99285; Q9967

== ENCOUNTER → 2024-04-27 14:55 | Outpatient (REF) | payer MEDICARE, OTHER, SELFPAY ==
[2024-04-27 16:49] LABS: Iron 76 ug/dl (49-181)
[2024-04-27 18:08] LABS: IgA 304 mg/dl (70-400)
[2024-04-30 06:15] LABS: Ceruloplasmin 29 mg/dL (15-30)
[2024-04-30 08:42] LABS: ANA, IgG Reflex to HEp-2 None Detected (None Detected)
[2024-04-30 09:01] LABS: Mitochondrial M2 Ab, IgG 5.7 Units (0.0-24.9)
[2024-04-30 09:02] LABS: F-Actin Antibody IgG 36 Units (0-19)
== END ==
LOC: REG 14:55
PROVIDERS: ATTENDING PHYSICIAN Nurse Practitioner; FAMILY PHYSICIAN Family Medicine
DX: R74.8 Abnormal levels of other serum enzymes (principal)
CPT/HCPCS: 36415; 82390; 82728; 82784; 83516; 83540; 86015; 86038; 86231; 86376; 86381

== ENCOUNTER 2024-05-19 11:07 | Emergency (ER) | payer MEDICARE, OTHER, SELFPAY ==
[2024-05-19 11:14] VITALS: BP 135/93
[2024-05-19 12:07] VITALS: BMI 22.5
[2024-05-19 12:12] VITALS: BP 152/83
--- NOTE | 2024-05-19 13:33 | ED.GENMED ---
History of Present Illness
General
Chief Complaint: Head Injury
Source: patient
Exam Limitations: none
Time Seen by Provider: 05/19/24 12:05
Nursing documentation reviewed up to this point in time: agreed with
History of Present Illness
History of Present Illness:
84-year-old male presenting to the emergency department today after mechanical fall tripping while using his walker hitting the back of his head has had some mild headache denies nausea numbness weakness. Denies additional concerns otherwise.
Past History
Past History
ED Past Medical History: Other (diverticulitis, Kidney stones,)
ED Past Surgical History: Bowel resection (for Diverticulitis) and Cholecystectomy
Social History
Tobacco: Non-smoker
Alcohol: Daily (wine 2 glasses)
Drug: None
Personal:
Living: with family
Review of Systems
Review of Systems
Allergies reviewed?: Yes
All Other Systems: ROS reviewed and negative except as documented in HPI and ROS
Phy Exam
Physical Exam
Physical Exam:
GENERAL: Alert , in no apparent distress
EYE: pupils equal and reactive
NECK: Supple, no significant adenopathy.
ENT: Bruising to the right sided occipital scalp with some extension into the right proximal posterior neck o/p clr, mmm.
CARDIAC: Regular rate and rhythm .
LUNGS: Clear breath sounds bilaterally, no acute respiratory distress, no wheezes/rales/rhonchi
ABDOMEN: Soft, without focal tenderness, no r/g, no cvat
NEUROLOGICAL: Alert and oriented, no focal neuro deficits
SKIN: Warm and dry, skin intact.
MUSCULOSKELETAL: No edema, well perfused.
PSYCH: Normal and appropriate interaction.
Course
Orders/Labs/Results
Orders:
Orders
05/19/24 12:05
CT Cervical Spine W/o Iv Contr Urgent
Comment:
Reason For Exam: fall hit neck
CT Head W/o Iv Contrast Urgent
Comment:
Reason For Exam: fal hit hback pof head neck
Vital Signs
Initial and Last Documented VS:
Initial Vital Signs
Temp Pulse Resp BP Pulse Ox
98 F 105 16 135/93 99
05/19/24 11:14 05/19/24 11:14 05/19/24 11:14 05/19/24 11:14 05/19/24 11:14
Last Documented Vital Signs
Temp Pulse Resp BP Pulse Ox
98 F 94 18 152/83 98
05/19/24 11:14 05/19/24 12:12 05/19/24 12:12 05/19/24 12:12 05/19/24 12:12
MDM/Problems Addressed
MDM/Problems Addressed:
84-year-old male presenting to the emergency department today with concerns of a fall where he hit the back of his head 4 days ago ongoing headache since. He was seen by his home health aide who told to go to the ER for CT scan. Here normal
neurologic evaluation vital signs normal CT scan without emergent findings otherwise stable for discharge. Return precautions given.
*Critical Care Note
Total Time (30-74mins, 75-104mins- exclusive of procedures): Not Applicable
ED Attending Note
-
Portions of this chart may have been created with voice recognition software.� Occasional wrong word or��sound alike� substitutions may have occurred due to the inherent limitations of voice recognition software.
Discharge Plan
Departure
Patient Disposition: Home (Routine Discharge)
Date of Disposition: 05/19/24
Time of Disposition: 13:36
Patient with high blood pressure during this ER visit?: No
Condition: Good
Covid-19: Not Applicable
Discharge Problem:
Scalp bruising, Fall
Instructions: Contusion (DC), Preventing falls in adults
Prescriptions:
No Action
levothyroxine [Synthroid] 88 mcg Tablet
88 mcg PO DAILY
oxycodone 5 mg Tablet
5 mg PO DAILYPRN PRN (Reason: severe pain)
sennosides [senna] 8.6 mg tablet
17.2 mg PO BIDPRN PRN (Reason: Constipation)
aspirin 325 mg tablet
325 mg PO HS
ondansetron HCl 4 mg tablet
4 mg PO Q6HPRN PRN (Reason: nausea and vomiting)
cefazolin 10 gram recon soln
2 g IV Q8H@0700,1500,2300
docusate sodium [Colace] 100 mg capsule
100 mg PO BIDPRN PRN (Reason: constipation)
oxycodone 5 mg tablet
5 mg PO BID
Saccharomyces boulardii 250 mg capsule
250 mg PO BID
Patient Comments:
04/17/24: Supposed to take twice a day, but takes once a day due to hiding medication from family
metronidazole 500 mg Tablet
500 mg PO BID Qty: 11 0RF
Referrals:
Paul Ramirez MD [Family Provider] -
Activity Restrictions/Additional Instructions:
You came to the emergency department today after a fall. Here your CT scans were normal. Please rest and ice over the next few days. Return to the emergency department for any worsening, new or concerning symptoms.
Interventions
Interventions:
*Risk Screen - Suicide Last Done: 05/19/24 11:16
*Neglect/Abuse Screening Last Done: 05/19/24 11:16
ED-Musculoskeletal Assessment Last Done: 05/19/24 12:09
ED- Neurological Assessment Last Done: 05/19/24 12:09
ED-Skin Assessment Last Done: 05/19/24 12:09
Discharge Date and Time
Print Language: AMHARIC
== END 2024-05-19 13:52 | disposition home or self-care (01) ==
LOC: EMR 11:07
PROVIDERS: EMERGENCY PHYSICIAN Emergency Medicine; FAMILY PHYSICIAN Family Medicine
DX: S00.03XA Contusion of scalp, initial encounter (principal); W01.0XXA Fall on same level from slipping, tripping and stumbling without subsequent striking against object, initial encounter; Z87.442 Personal history of urinary calculi; Z90.49 Acquired absence of other specified parts of digestive tract
CPT/HCPCS: 99284; 70450; 72125

== ENCOUNTER → 2024-05-31 13:27 | Outpatient (REF) | payer MEDICARE, OTHER, SELFPAY ==
[2024-05-31 14:36] LABS: % Basophils 0.9 % (0-2); % Eosinophils 3.1 % (0-6); % Immature Granulocytes 0.3 % (0-0.5); % Lymphocytes 29.8 % (20.5-51.1); % Monocytes 8.6 % (1.7-9.3); % Neutrophils 57.3 % (42.2-75.2); Absolute Basophils 0.1 10^3/uL (0-0.2); Absolute Eosinophils 0.2 10^3/uL (0-0.7); Absolute Lymphocytes 1.7 10^3/uL (1.2-3.4); Absolute Monocytes 0.5 10^3/uL (0.1-0.6); Absolute Neutrophils 3.3 10^3/uL (1.4-6.5); Hematocrit 46.7 % (39.0-52.0); Mean Corp Hgb Conc. 34.3 g/dL (33.0-37.0); Mean Corpuscular Hgb 31.1 pg (27.0-31.0); Mean Corpuscular Volume 90.9 fL (80.0-94.0); Mean Platelet Volume 11.9 fL (7.4-10.4); Nucleated Red Blood Cells % 0 % (-); Platelet Count 148 10^3/uL (130-400); Red Blood Cell Count 5.14 10^6/uL (4.70-6.10); Red Cell Dist. Width 13.5 % (11.5-14.5); White Blood Cell Count 5.8 10^3/uL (4.8-10.8)
[2024-05-31 15:11] LABS: C-Reactive Protein < 5.00 mg/L (0.0-10.00)
[2024-05-31 15:23] LABS: Erythrocyte Sed Rate 57 mm/hour (0-20)
[2024-06-01 21:48] LABS: AFP Male/Tumor Marker 5.59 ng/ml
== END ==
LOC: REG 13:27
PROVIDERS: ATTENDING PHYSICIAN Physician Assistant Surgical; FAMILY PHYSICIAN Family Medicine; OTHER PHYSICIAN Physician Assistant
DX: T84.53XD Infection and inflammatory reaction due to internal right knee prosthesis, subsequent encounter (principal); K74.60 Unspecified cirrhosis of liver
CPT/HCPCS: 36415; 82105; 85025; 85652; 86140

== ENCOUNTER 2024-06-12 10:28 | Inpatient (IN) | payer MEDICARE, OTHER, SELFPAY ==
[2024-06-06 13:48] VITALS: BMI 21.9
[2024-06-06 14:40] LABS: Hematocrit 46.3 % (39.0-52.0); Hemoglobin 15.6 g/dL (13.0-18.0); Mean Corp Hgb Conc. 33.7 g/dL (33.0-37.0); Mean Corpuscular Hgb 31.6 pg (27.0-31.0); Mean Corpuscular Volume 93.9 fL (80.0-94.0); Mean Platelet Volume 12.1 fL (7.4-10.4); Platelet Count 121 10^3/uL (130-400); Red Blood Cell Count 4.93 10^6/uL (4.70-6.10); Red Cell Dist. Width 13.4 % (11.5-14.5); White Blood Cell Count 5.7 10^3/uL (4.8-10.8)
[2024-06-06 15:27] LABS: ALT (SGPT) 176 U/L (0-50); AST (SGOT) 156 U/L (17-59); Albumin 4.1 g/dl (3.5-5.0); Alkaline Phosphatase 212 U/L (38-126); Blood Urea Nitrogen 23 mg/dl (9-20); Calcium 9.5 mg/dl (8.4-10.2); Carbon Dioxide 27 mmol/L (22-30); Chloride 103 mmol/L (98-107); Estimated Creatinine Clearance 66 ml/min; Glucose 92 mg/dl (70-99); Potassium 4.5 mmol/L (3.5-5.1); Sodium 140 mmol/L (135-145); Total Bilirubin 0.8 mg/dl (0.2-1.3); Total Protein 7.8 g/dl (6.3-8.2); eGFR > 60.00
[2024-06-07 08:03] VITALS: BMI 21.9
[2024-06-07 08:27] LABS: Glycohemoglobin (HgbA1c) 4.7 % (4.0-5.6)
[2024-06-12] VITALS (10 sets, daily range): BP systolic 130–162; BP diastolic 63–87; BMI 21.9
[2024-06-12] MEDS: NORMOSOL-R/PLASMALYTE-A 1000 IV ×2 (11:28→22:01)
[2024-06-12] MEDS: CELEBREX 200 MG PO (11:50)
--- NOTE | 2024-06-12 15:11 | W.PN.UPDATE ---
Update Note
Progress Note Update
Periprosthetic septic joint L TKA 02/2023-Stage 1 Revision 04/03/24-L TKA Stage II Revision Dr. Strauss 06/12/24
-culture Staph epi, responsive to Cefazolin-infectious markers trended down
DVT Prophylaxis-ASA
Ambulatory dysfunction with deconditioning-home care x 2 weeks prior to OP PT
Recent GIB-diverticular w/ sepsis-+ GI ppx
-no NSAIDs
Cirrhosis-GI eval pending-avoid hepatotoxic agents
Bifascicular heart block-cleared by cards-tele
CVA remote cerebellar infarcts noted on MRI 2018-no patient reported deficits-continue ASA uninterrupted and maintain good BP range
--- NOTE | 2024-06-12 15:31 | W.DS.TRANS ---
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
-
Discharge Instructions:
Sleep Apnea Risk Low
Discharge Diagnosis/Procedures L TKA Stage [address] Strauss 06/12/24
Diet As tolerated
Activity With Walker
Driving Restrictions No driving
Bathing Restrictions OK to Shower
Other Services VN,PT
Instructions:
Stand-Alone Forms: Total Hip/Knee Replacement D/C
Changes to Home Medications: Yes
Discharge Medications:
DC Medications w/original date entered in [employer]
levothyroxine 88 mcg tablet (Synthroid) 88 mcg PO DAILY Thyroid 07/03/22
Saccharomyces boulardii 250 mg capsule 250 mg PO BID Gastrointestinal Issue 04/17/24
aspirin 325 mg tablet 325 mg PO HS Blood Clot Prevention/Tx 04/17/24
Fish Oil 1 dose PO DAILY 06/05/24
Prevagen 1 dose PO DAILY 06/05/24
multivitamin 1 tab PO DAILY 06/05/24
vitamin E 1 dose PO DAILY 06/05/24
dexamethasone 4 mg tablet 4 mg PO BID inflammation #6 tabs 06/06/24
gabapentin 300 mg capsule 300 mg PO HS sleep/pain #10 caps 06/06/24
mupirocin 2 % topical ointment 1 applic topical BID infection prevention #1 tube 06/06/24
oxycodone 5 mg tablet 5 mg PO Q6H PRN moderate-severe pain #30 tabs 06/06/24
cefadroxil 500 mg capsule 500 mg PO BID infection prevention #14 caps 06/12/24
docusate sodium 100 mg capsule (Colace) 100 mg PO BID #0 caps 06/12/24
famotidine 20 mg tablet 20 mg PO HS GI prophylaxis #30 tabs 06/12/24
magnesium hydroxide 400 mg/5 mL oral suspension (Milk of Magnesia) 30 ml PO HS PRN Constipation #1 mL 06/12/24
sennosides 8.6 mg tablet (Senokot) 17.2 mg (2 x 8.6 mg) PO BID laxative #2 tabs 06/12/24
Home Medication Changes
dexamethasone 4 mg tablet 4 mg PO BID inflammation #6 tabs 06/06/24
gabapentin 300 mg capsule 300 mg PO HS sleep/pain #10 caps 06/06/24
mupirocin 2 % topical ointment 1 applic topical BID infection prevention #1 tube 06/06/24
oxycodone 5 mg tablet 5 mg PO Q6H PRN moderate-severe pain #30 tabs 06/06/24
cefadroxil 500 mg capsule 500 mg PO BID infection prevention #14 caps 06/12/24
docusate sodium 100 mg capsule (Colace) 100 mg PO BID #0 caps 06/12/24
famotidine 20 mg tablet 20 mg PO HS GI prophylaxis #30 tabs 06/12/24
magnesium hydroxide 400 mg/5 mL oral suspension (Milk of Magnesia) 30 ml PO HS PRN Constipation #1 mL 06/12/24
sennosides 8.6 mg tablet (Senokot) 17.2 mg (2 x 8.6 mg) PO BID laxative #2 tabs 06/12/24
Pending Results: No
[2024-06-12] MEDS: ROXICODONE 5 MG PO ×2 (17:58→22:39)
--- NOTE | 2024-06-12 18:38 | PTCARENOTE ---
Patient admitted from [facility] left total knee revision part 2.The patient denies any pain.Neurovascular assessment is within normal limits and ongoing.The left knee dressing is intact with scant drainage.The patient is in his bed with the call
whitaker in reach.
[2024-06-12] MEDS: ULTRAM 25 MG PO (20:14)
[2024-06-12] MEDS: FLORASTOR 250 MG PO (20:16)
[2024-06-12] MEDS: BACTROBAN 2% OINTMENT 1 APPLIC NASAL (20:16)
[2024-06-12] MEDS: COLACE 100 MG PO (20:16)
[2024-06-12] MEDS: PROTONIX 40 MG PO (20:17)
[2024-06-12] MEDS: DECADRON 4 MG IV (20:17)
[2024-06-12] MEDS: SENOKOT PO (20:17)
[2024-06-12] MEDS: ASPIRIN 325 MG PO (20:17)
[2024-06-12] MEDS: NEURONTIN 300 MG PO (22:00)
[2024-06-12] MEDS: ANCEF 5 IV (22:00)
[2024-06-12] MEDS: CYKLOKAPRON 1300 MG PO (23:28)
[2024-06-13] VITALS (8 sets, daily range): BP systolic 112–161; BP diastolic 62–89; PULSE 78–88; O2SAT 98–100
[2024-06-13] MEDS: ROXICODONE 5 MG PO (05:47)
[2024-06-13] MEDS: ANCEF 5 IV (05:47)
[2024-06-13] MEDS: SYNTHROID 88 MCG PO (05:47)
[2024-06-13] MEDS: ASPIRIN 325 MG PO (07:29)
[2024-06-13] MEDS: SENOKOT 17.2 MG PO (07:29)
[2024-06-13] MEDS: ULTRAM 25 MG PO (07:29)
[2024-06-13] MEDS: PROTONIX 40 MG PO ×2 (07:29→20:09)
[2024-06-13] MEDS: COLACE 100 MG PO (07:29)
[2024-06-13] MEDS: FLORASTOR 250 MG PO ×2 (07:30→20:10)
[2024-06-13] MEDS: DECADRON 4 MG IV ×2 (07:30→20:09)
[2024-06-13] MEDS: BACTROBAN 2% OINTMENT 1 APPLIC NASAL ×2 (07:30→20:10)
--- NOTE | 2024-06-13 09:50 | CM ---
Addendum entered by Tita Lutz RN 06/13/24 15:40:
IMM reviewed.
Original Note:
Reviewed the chart notes and spoke with the patient at the bedside and his spouse via telephone. The patient is s/p L TKA stage II revision. The patient resides in a two story home with one step to enter. The patient has a stair glide to second
level. The patient uses a rolling walker. The patient has had [facility] and [facility] in past. The patient report no SNF. The patient confirmed his pharmacy of choice is the [facility]. The patient anticipates home therapy for
two weeks then outpatient. The patient has selected [facility]. Referral sent and accepted. CM continues to be available to patient/family and is monitoring medical plan for needs at discharge.
Plan: Discharge to home with [facility].
[facility]uki
--- NOTE | 2024-06-13 12:03 | W.PN.ORTHO ---
Today's Communication / Plan
-
Await HGB, platelet count , PT/INR
Tranexamic acid 1300mg po
pressure dress w/ leg elevation
-d/c later today or in am if stable
Assessment
.
Distal Motor Intact: Yes
Dressing:
Clean, dry and intact.
Assessment:
Periprosthetic septic joint L TKA 02/2023-Stage 1 Revision 04/03/24-L TKA Stage II Revision Dr. Strauss 06/12/24
-culture Staph epi, responsive to Cefazolin-infectious markers trended down
Incisional bleeding-likely due to coagulopathy secondary to liver disease in setting of surgery-dose Tranexamic acid 1300mg po again-check hgb, PT/INR and platelet count-apply pressure dressing and elevate legs
DVT Prophylaxis-ASA
Ambulatory dysfunction with deconditioning-home care x 2 weeks prior to OP PT
Recent GIB-diverticular w/ sepsis-+ GI ppx
-no NSAIDs
Cirrhosis-GI eval pending OP-avoid hepatotoxic agents
Bifascicular heart block-cleared by cards-stable on tele
CVA remote cerebellar infarcts noted on MRI 2018-no patient reported deficits-continue ASA uninterrupted and maintain good BP range
Plan
.
Surgery / Date: L TKA Stage II Rev[address] Strauss 06/12/24
DVT Prophylaxis: Aspirin
Activity:
Out of bed.
PT/OT
Discharge Plan: Home w/ VN
Subjective
.
.:
Patient resting comfortably.
Vital Signs and Labs
.
Vital Signs and Labs:
Lab Results
06/06/24 13:00
Temp Pulse Resp BP Pulse Ox
97.7 F 77 18 161/77 99
06/13/24 07:00 06/13/24 07:00 06/13/24 07:00 06/13/24 07:00 06/13/24 07:00
Non-invasive Hgb result: 11
Physical Exam
-
HEENT: No pallor, cyanosis, or jaundice. Throat clear.
NECK: Supple. No JVD.
RESPIRATORY: Lungs clear to auscultation.
CVS: S1, S2 normal. RRR.� No murmur, rub or gallop.
ABDOMEN: Soft, non-tender. No distension. BS+/normal.
EXTREMITIES: strength equal, no calf pain with palpation
INSTRUCTOR EXTENSION WORK: AOx3. No focal deficits. prn physical therapist grossly intact
[2024-06-13] MEDS: CYKLOKAPRON 1300 MG PO ×2 (12:23→22:13)
[2024-06-13] MEDS: ROXICODONE 10 MG PO (12:23)
[2024-06-13 13:45] LABS: PT 14.5 Sec (11.4-14.6)
[2024-06-13 14:08] LABS: Hemoglobin 11.4 g/dL (13.0-18.0)
--- NOTE | 2024-06-13 14:27 | PTCARENOTE ---
Called into room as patient was bleeding from his left knee surgical incision. This happened last night also. All kasie are there but 4 spots keep oozing and saturating the primaseal dressings. TT to Makayla Mathew. Labs and tranexamic acid
ordered. Wound care done with new primaseal and pressure dressings, legs elevated on pillows.
[2024-06-13 15:23] LABS: Platelet Count 104 10^3/uL (130-400)
[2024-06-13] MEDS: COLACE PO (20:09)
[2024-06-13] MEDS: SENOKOT PO (20:10)
[2024-06-14 03:45] VITALS: BP 167/88
[2024-06-14] MEDS: SYNTHROID 88 MCG PO (06:19)
[2024-06-14 07:18] VITALS: BP 147/67
[2024-06-14] MEDS: COLACE 100 MG PO (08:07)
[2024-06-14] MEDS: PROTONIX 40 MG PO (08:07)
[2024-06-14] MEDS: ASPIRIN 325 MG PO (08:07)
[2024-06-14] MEDS: FLORASTOR 250 MG PO (08:07)
[2024-06-14] MEDS: SENOKOT 17.2 MG PO (08:07)
[2024-06-14 10:42] VITALS: BP 149/82
--- NOTE | 2024-06-14 10:47 | W.PN.UPDATE ---
Update Note
Progress Note Update
Patient doing/feeling well this AM. Now POD#2 2nd stage revision left TKA (for infection). Dressing changes x 3 since surgery Wednesday. Has received po TXA as well. Afeb. Dressing again saturated today. Upon removal small area of bloody drainage noted
distally. Incision cleaned with Betadine and 2 kasie applied to the distal incision. New aquacel dressing placed with REAGAN compression. May be OOB with PT. Elevation and ice. D/C planned for later today. D/c plan complete- CM to see patient
shortly. Outpatient Ortho follow-up 2 weeks
--- NOTE | 2024-06-14 10:50 | W.DS.TRANS ---
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
-
Discharge Instructions:
Sleep Apnea Risk Low
Discharge Diagnosis/Procedures L TKA Stage [address] Strauss 06/12/24
Diet As tolerated
Activity With Walker
Driving Restrictions No driving
Bathing Restrictions OK to Shower
Other Services VN,PT
Instructions:
Stand-Alone Forms: Total Hip/Knee Replacement D/C
Changes to Home Medications: No
Discharge Medications:
DC Medications w/original date entered in [facility]
levothyroxine 88 mcg tablet (Synthroid) 88 mcg PO DAILY Thyroid 07/03/22
Saccharomyces boulardii 250 mg capsule 250 mg PO BID Gastrointestinal Issue 04/17/24
aspirin 325 mg tablet 325 mg PO HS Blood Clot Prevention/Tx 04/17/24
Fish Oil 1 dose PO DAILY 06/05/24
Prevagen 1 dose PO DAILY 06/05/24
multivitamin 1 tab PO DAILY 06/05/24
vitamin E 1 dose PO DAILY 06/05/24
dexamethasone 4 mg tablet 4 mg PO BID inflammation #6 tabs 06/06/24
gabapentin 300 mg capsule 300 mg PO HS sleep/pain #10 caps 06/06/24
mupirocin 2 % topical ointment 1 applic topical BID infection prevention #1 tube 06/06/24
oxycodone 5 mg tablet 5 mg PO Q6H PRN moderate-severe pain #30 tabs 06/06/24
cefadroxil 500 mg capsule 500 mg PO BID infection prevention #14 caps 06/12/24
docusate sodium 100 mg capsule (Colace) 100 mg PO BID #0 caps 06/12/24
famotidine 20 mg tablet 20 mg PO HS GI prophylaxis #30 tabs 06/12/24
magnesium hydroxide 400 mg/5 mL oral suspension (Milk of Magnesia) 30 ml PO HS PRN Constipation #1 mL 06/12/24
sennosides 8.6 mg tablet (Senokot) 17.2 mg (2 x 8.6 mg) PO BID laxative #2 tabs 06/12/24
Home Medication Changes
Pending Results: No
[2024-06-14 11:27] VITALS: BP 119/61
--- NOTE | 2024-06-14 11:30 | CM ---
Met patient, his and his niece. Plan home today per conversation with Ortho team. Patient eager to leave.
Reviewed IMM. OT has seen. PT to see and do step. Patient has stairglide to second floor but one step to enter. reports stairglide new as patient was falling at home.
Plan: Discharge to home with [facility] services.
[facility]
[2024-06-14 12:20] VITALS: BP 113/64; PULSE 79; O2SAT 98
== END 2024-06-14 12:52 | disposition home health service (06) | DRG 467 ==
LOC: 2 SOUTH 10:28
PROVIDERS: Physician Assistant Medical; ADMITTING PHYSICIAN Specialist; FAMILY PHYSICIAN Family Medicine
PROC: 0SPD08Z Removal of Spacer from Left Knee Joint, Open Approach (ICD-10-PCS; 2024-06-12)
PROC: 0SRD0J9 Replacement of Left Knee Joint with Synthetic Substitute, Cemented, Open Approach (ICD-10-PCS; 2024-06-12)
DX: T84.54XA Infection and inflammatory reaction due to internal left knee prosthesis, initial encounter (principal); I45.2 Bifascicular block; B95.7 Other staphylococcus as the cause of diseases classified elsewhere; Y79.2 Prosthetic and other implants, materials and accessory orthopedic devices associated with adverse incidents; E03.9 Hypothyroidism, unspecified; I73.9 Peripheral vascular disease, unspecified; K74.60 Unspecified cirrhosis of liver; M17.11 Unilateral primary osteoarthritis, right knee; M25.362 Other instability, left knee; Y83.1 Surgical operation with implant of artificial internal device as the cause of abnormal reaction of the patient, or of later complication, without mention of misadventure at the time of the procedure; Z86.73 Personal history of transient ischemic attack (TIA), and cerebral infarction without residual deficits; Z91.040 Latex allergy status; Z99.3 Dependence on wheelchair; Z79.82 Long term (current) use of aspirin; Z79.890 Hormone replacement therapy
CPT/HCPCS: 36415; 73560; 80053; 83036; 85018; 85027; 85049; 85610; 86850; 86900; 86901; 87070; 93005; 97110; 97116; 97162; 97166; 97530; 97535

== ENCOUNTER 2024-08-13 21:35 | Inpatient (IN) | payer MEDICARE, OTHER, SELFPAY ==
[2024-08-13] VITALS (20 sets, daily range): BP systolic 94–136; BP diastolic 43–104; BMI 22.2
[2024-08-13 16:32] LABS: Hematocrit 47.8 % (39.0-52.0); Hemoglobin 16.4 g/dL (13.0-18.0); Mean Corp Hgb Conc. 34.3 g/dL (33.0-37.0); Mean Corpuscular Hgb 29.9 pg (27.0-31.0); Mean Corpuscular Volume 87.1 fL (80.0-94.0); Mean Platelet Volume 11.5 fL (7.4-10.4); Platelet Count 153 10^3/uL (130-400); Red Blood Cell Count 5.49 10^6/uL (4.70-6.10); Red Cell Dist. Width 15.1 % (11.5-14.5); White Blood Cell Count 24.9 10^3/uL (4.8-10.8)
[2024-08-13 16:37] LABS: COVID-19 Antigen Negative (Negative)
[2024-08-13 16:51] LABS: ALT (SGPT) 148 U/L (0-50); AST (SGOT) 116 U/L (17-59); Albumin 3.5 g/dl (3.5-5.0); Alkaline Phosphatase 271 U/L (38-126); Blood Urea Nitrogen 30 mg/dl (9-20); Calcium 9.7 mg/dl (8.4-10.2); Carbon Dioxide 16 mmol/L (22-30); Chloride 108 mmol/L (98-107); Glucose 142 mg/dl (70-99); Potassium 4.7 mmol/L (3.5-5.1); Sodium 138 mmol/L (135-145); Total Protein 7.1 g/dl (6.3-8.2); eGFR 58.89
--- NOTE | 2024-08-13 16:57 | EDRN ---
Aleja Flannery DRAG CAR RACER in room w/ pt at this time.
--- NOTE | 2024-08-13 17:00 | ED.GENMED ---
History of Present Illness
General
Chief Complaint: Urinary Symptoms
Source: patient and spouse
Exam Limitations: none
Time Seen by Provider: 08/13/24 16:24
Nursing documentation reviewed up to this point in time: agreed with
History of Present Illness
History of Present Illness:
Patient to ED with complaint of right sided abd. pain, fever, back pain, decreased urine output. symptoms started last PM. states he refused to come to ED last PM. No eating/drinking since yesterday AM. Brought to ED by spouse and son.
Past History
Past History
ED Past Medical History: Other (diverticulitis, Kidney stones,)
ED Past Surgical History: Bowel resection (for Diverticulitis) and Cholecystectomy
Social History
Tobacco: Non-smoker
Alcohol: Daily (wine 2 glasses)
Drug: None
Personal:
Living: with family
Review of Systems
Review of Systems
Allergies reviewed?: Yes
All Other Systems: ROS reviewed and negative except as documented in HPI and ROS
Constitutional: Reports fever and fatigue
EENT: Reports no symptoms
Respiratory: Reports no symptoms
Cardiac: Reports no symptoms
ABD/GI: Reports abdominal pain (right sided abd pain)
: Reports difficulty voiding
Musculoskeletal: Reports back pain
Skin: Reports no symptoms
Neurological: Reports weakness
Psychiatric: Reports no symptoms
Phy Exam
General Physical Exam
General Presentation: moderate distress
General age: appears stated age
General Skin: warm and dry
General Habitus: normal
General Mental: alert
Cardiovascular Exam
Cardiovascular Exam: regular rate/rhythm and no edema
Pulmonary Exam
Pulmonary Exam: lungs clear and no respiratory distress
Gastrointestinal Exam
Gastrointestinal Exam: soft, no organomegaly, non distended and no cva tenderness
Palpation: left upper quadrant: No tenderness, left lower quadrant: No tenderness, right upper quadrant: Moderate tenderness and right lower quadrant: Moderate tenderness
Neurological Exam
Neurological Exam: alert and oriented x3
Musculoskeletal Exam
Musculoskeletal Exam: full ROM and neuro vasc intact
Skin Exam
Skin Exam: normal color, warm/dry and no rash
Psychiatric Exam
Psychiatric Exam: normal mood/affect
Course
Orders/Labs/Results
Orders:
Orders
08/13/24 Breakfast
NPO
Allow oral meds: Yes
Allow clear liquids: Sips of Clears
08/13/24 16:01
EKG [Electrocardiogram (*1)] Urgent
Reason for Study: Tachycardia
08/13/24 16:02
EKG- Treatment ONCE
08/13/24 16:11
CMP [Comprehensive Metabolic Panel] Urgent
COVID-19 Antigen Urgent
Source: Nasal Swab
Complete Blood Count/With Diff Urgent
Lipase Urgent
Comment: ADD ON
Influenza A+B Rapid Molecular Urgent
DANIA Source: Nasal Swab
Specimen Description:
08/13/24 16:24
Bladder Scan- Treatment ONCE
08/13/24 16:46
0.9% Sodium Chloride 1000 ml [Nss] 1,000 ml IV BOLUS
08/13/24 17:12
Add On- LAB Urgent
Tests Added?: lipase
08/13/24 17:34
Lactic Acid Urgent
Blood Culture Urgent
DANIA Source: Blood/Venous
Specimen Description:
08/13/24 17:43
Blood Culture Urgent
DANIA Source: Blood/Venous
Specimen Description:
08/13/24 18:45
Cefepime HCl [Maxipime] 2,000 mg IV NOW STA
08/13/24 18:47
0.9% Sodium Chloride 1000 ml [Nss] 1,000 ml IV BOLUS
08/13/24 18:49
Vancomycin [Vancocin] 1,500 mg 0.9% Sodium Chloride 500 ml [Nss] 500 ml IV NOW
08/13/24 19:16
CT Abd/pelvis W Iv Cont Urgent
Comment:
Reason For Exam: right sided abd pain
08/13/24 19:44
Acetaminophen 1000MG/100Ml [Ofirmev] 1,000 mg in 100 ml .ROUTE .STK-MED
08/13/24 19:45
HYDROmorphone [Dilaudid] 0.5 mg .ROUTE .STK-MED ONE
Ondansetron Injectable [Zofran] 4 mg .ROUTE .STK-MED ONE
08/13/24 19:46
HYDROmorphone [Dilaudid] 0.5 mg IV NOW STA
08/13/24 19:47
Ondansetron Injectable [Zofran] 4 mg IV NOW STA
08/13/24 19:56
Ketorolac [Toradol] 15 mg .ROUTE .STK-MED ONE
08/13/24 19:57
Ketorolac [Toradol] 15 mg IV NOW STA
08/13/24 20:03
Urinalysis Reflex To Culture Urgent
Date Specimen was Collected: 08/13/24
Time Specimen was Collected: 19:19
Urine Microscopic Reflex Cult Urgent
Urine Culture Urgent
DANIA Source: U
Specimen Description:
Date Specimen was Collected: 08/13/24
Time Specimen was Collected: 19:19
08/13/24 20:53
Admit/Transfer Patient As Directed
Co-Sign Provider:
Level of Care: Inpatient admission
Assign to:: ICU
Physician / Group: Ramirez
Diagnosis: Ureteral Stone, Pyelonephritis, Sepsis
Reason for Hospitalization: Ureteral Stone, Pyelonephritis, Sepsis
Expected length of stay greater than two midnights?: Yes
ELOS- Estimated Length of Stay in days: 4
I certify the patient meets the requirements for IP care: Yes
Code Status As Directed
Resuscitation Status: Full Code
PRN Pain Medication Management As Directed
May give lesser potent ordered pain med per pt: Yes
preference::
Protocol:: Medication orders for pain may be administered in a
manner that supports deferring to patient preference
when the pt is:
- Requesting an ordered lesser potent pain medication.
Least to most potent pain medications are defined
as: acetaminophen < NSAID < tramadol < opioids
(morphine, oxycodone, hydromorphone).
- Requesting a lesser dose of the same medication IF
ORDERED.
- Requesting a less intrusive route of administration
if both routes are prescribed by the provider (PO <
IV).
08/13/24 20:54
NORepinephrine 4 MG/250 ML [Levophed] 4 mg in 250 ml .ROUTE .STK-MED
08/13/24 20:55
Lidocaine 2% Mpf [Xylocaine Mpf 2%] 100 mg .ROUTE .STK-MED ONE
Propofol [Diprivan] 20 ml .ROUTE .STK-MED
08/13/24 20:56
Dexamethasone Sod Phosphate [Decadron] 20 mg .ROUTE .STK-MED ONE
Fentanyl Citrate/Pf [Sublimaze] 100 mcg .ROUTE .STK-MED ONE
Ondansetron Injectable [Zofran] 4 mg .ROUTE .STK-MED ONE
08/13/24 21:11
Iohexol [Omnipaque] 50 ml .ROUTE .STK-MED ONE
08/13/24 21:53
0.9% Sodium Chloride 1000 ml [Nss] 1,000 ml IV 150 mls/hr
Acetaminophen [Tylenol] 650 mg PO Q4HPRN PRN
Ketorolac [Toradol] 15 mg IV Q6HPRN PRN
Ondansetron Injectable [Zofran] 4 mg IV Q6HPRN PRN
08/13/24 21:53
UROLOGY CONSULT Urgent
Consulting Provider: Pawan Boland Jr.
Was physician already notified: Yes
Comment: Ureteral Stone, Pyelonephritis, Sepsis
Activity As Directed
Activity Level: Ambulate
With Assistance
Bladder Scan As Directed
Follow Bladder Retention/Intermittent Cath Algorithm?: Yes
PRN if no void in __ hours: 6
Frequency: Per Retention Algorithm
If Bladder Scan Result >: 400
then:: Straight cath
EKG with chest pain [ECG as needed] As Directed
ECG as needed for:: Chest Pain
I/O [Intake/ Output] As Directed
Frequency: Per unit guidelines
Pneumatic Compression Sleeves As Directed
Type: Knee high
Straight Cath As Directed
Frequency: Per Retention Algorithm
Additional Instructions: straight cath as needed per acute urinary retention algorithm for 24 hrs
Additional Instructions: for bladder scan greater than 400 mL
Vital Signs As Directed
Frequency: Per unit guidelines
Weight As Directed
Frequency: Daily
Oxygen Therapy [O2 Therapy] [RESP] Routine
Titrate/Wean O2 to maintain O2 sat greater than (%): 94
Ot Eval And Treat Routine
PT Consult [Pt Eval And Treat] Routine
Activity Level: Ambulate
With Assistance
DX Deep Vein Thrombosis Video Routine
08/13/24 23:16
Lactate Level [Lactic Acid] Q6H
08/14/24 03:25
Basic Metabolic Panel IN AM
Complete Blood Count/No Diff IN AM
Lactate Level [Lactic Acid] Q6H
08/14/24 06:00
Cefepime HCl [Maxipime] 2,000 mg IV Q12H
Levothyroxine [Synthroid] 88 mcg PO DAILY@0600
Abnormal Lab Results
08/13/24 08/13/24 08/13/24
16:11 17:34 20:03
WBC 24.9 H 10^3/uL
(4.8-10.8)
RDW 15.1 H %
(11.5-14.5)
MPV 11.5 H fL
(7.4-10.4)
Abs Immat Gran (auto) 0.4 H 10^3/uL
(0-0.05)
Absolute Neuts (auto) 22.5 H 10^3/uL
(1.4-6.5)
Absolute Lymphs (auto) 0.6 L 10^3/uL
(1.2-3.4)
Absolute Monos (auto) 1.3 H 10^3/uL
(0.1-0.6)
Immature Gran % 1.7 H %
(0-0.5)
Neutrophils % 90.4 H %
(42.2-75.2)
Lymphocytes % 2.2 L %
(20.5-51.1)
Chloride 108 H mmol/L
(98-107)
Carbon Dioxide 16 L mmol/L
(22-30)
BUN 30 H mg/dl
(9-20)
Glucose 142 H mg/dl
(70-99)
Lactic Acid 3.7 H mmol/L
(0.7-2.0)
Total Bilirubin 2.0 H mg/dl
(0.2-1.3)
AST 116 H U/L
(17-59)
ALT 148 H U/L
(0-50)
Alkaline Phosphatase 271 H U/L
(38-126)
Ur Occult Blood Reflex 4+ A
(Negative)
Urine Nitrite (Reflex) Positive A
(Negative)
Leukocyte Esterase Rfl 3+ A
(Negative)
Urine RBC >100 A /HPF
(0-2)
Urine WBC (Reflex) >100 A /HPF
(0-5)
Urine Bacteria (Reflex) Moderate A
(Negative)
Urine Yeast Few A
(Negative)
Urine Albumin (Reflex) 3+ A
(Neg - Trace)
08/13/24 16:11
08/13/24 16:11
Vital Signs
Initial and Last Documented VS:
Initial Vital Signs
Temp Pulse Resp BP Pulse Ox
98.2 F 142 24 136/79 96
08/13/24 15:53 08/13/24 15:53 08/13/24 15:53 08/13/24 15:53 08/13/24 15:53
Last Documented Vital Signs
Temp Pulse Resp BP Pulse Ox
97.6 F 115 28 105/57 95
08/14/24 11:18 08/14/24 15:00 08/14/24 15:00 08/14/24 15:00 08/14/24 15:00
*Radiology
Radiology exam reviewed: radiology read reviewed
*Pulse Oximetry
Patient hypoxic: no
*Critical Care Note
Total Time (30-74mins, 75-104mins- exclusive of procedures): 45
Update Note
Update Note:
TEmp spike to 102 rectal. Given toradol 15mg IV. IV fluids continue to infuse as well as vancomycin. Ronquillo catheter placed, drained initial 300 cc blood tinged urine. Sent for culture. CT report of 1.2cm right obstructing ureteral stone with
hydronephrosis, pyelonephritis. Dr. Boland notified of CT findings. Patient to go to OR [facility].
ED Attending Note
-
Portions of this chart may have been created with voice recognition software.� Occasional wrong word or��sound alike� substitutions may have occurred due to the inherent limitations of voice recognition software.
Discharge Plan
Departure
Patient Disposition: Admit
Date of Disposition: 08/13/24
Time of Disposition: 20:23
Presentation/result/management discussed w/ accepting MD/DO: Hospitalist
Patient with high blood pressure during this ER visit?: Yes
Condition: Critical
Covid-19: Not Applicable
Discharge Problem:
Urosepsis, Hydronephrosis with renal calculous obstruction
Interventions
Interventions:
*Risk Screen - Suicide Last Done: 08/13/24 15:53
*General Assessment Last Done: 08/13/24 18:38
*Neglect/Abuse Screening Last Done: 08/13/24 15:53
ED- Fall Risk Assessment Last Done: 08/13/24 17:40
*ED COVID-19 Vaccine History Last Done: 08/13/24 18:38
*Nursing Disposition Last Done: 08/13/24 21:18
ED-Male Genitourinary Assessment Last Done: 08/13/24 17:40
Discharge Date and Time
Discharge Date/Time: 08/13/24 21:19
[2024-08-13 17:17] LABS: % Basophils 0.4 % (0-2); % Immature Granulocytes 1.7 % (0-0.5); % Lymphocytes 2.2 % (20.5-51.1); % Monocytes 5.3 % (1.7-9.3); % Neutrophils 90.4 % (42.2-75.2); Absolute Basophils 0.1 10^3/uL (0-0.2); Absolute Immature Granulocytes 0.4 10^3/uL (0-0.05); Absolute Lymphocytes 0.6 10^3/uL (1.2-3.4); Absolute Monocytes 1.3 10^3/uL (0.1-0.6); Absolute Neutrophils 22.5 10^3/uL (1.4-6.5); Nucleated Red Blood Cells % 0 % (-)
[2024-08-13] MEDS: NSS 1000 IV ×3 (17:39→22:15)
[2024-08-13 17:48] LABS: Lipase 28 U/L (23-300)
[2024-08-13 17:53] LABS: Lactic Acid 3.7 mmol/L (0.7-2.0)
[2024-08-13] MEDS: MAXIPIME 2000 MG IV (18:51)
[2024-08-13] MEDS: DILAUDID 0.5 MG IV (19:46)
[2024-08-13] MEDS: ZOFRAN 4 MG IV (19:47)
[2024-08-13] MEDS: VANCOCIN 530 MG IV (19:48)
[2024-08-13] MEDS: TORADOL 15 MG IV (19:58)
[2024-08-13 20:26] LABS: Urine Albumin 3+ (Neg - Trace); Urine Bilirubin Negative (Negative); Urine Character Slightly Cloudy (Clear); Urine Color Yellow; Urine Glucose Negative (Negative); Urine Ketone Negative (Negative); Urine Leukocyte 3+ (Negative); Urine Nitrite Positive (Negative); Urine Occult Blood 4+ (Negative); Urine Specific Gravity 1.015 (<1.030); Urine Urobilinogen Negative (Neg - 1+)
[2024-08-13 20:32] LABS: Urine Bacteria Moderate (Negative); Urine Red Blood Cell >100 /HPF (0-2); Urine Squamous Cell None seen /LPF (Few); Urine White Cell >100 /HPF (0-5)
[2024-08-13 20:33] LABS: Urine Yeast Few (Negative)
--- NOTE | 2024-08-13 20:52 | CON.MD ---
Consultation - Medical
-
see dictated note
pt with recent admits for sepsis and diverticular bleed and knee revision
presents with ab pain/ams/cloudy urine
spetic in ER
CT shows obstructing right upj stone and prox left stone
air in bladder lumen- zacarias was placed- urine now bloody
reviewed with and son ans pt is somnolent
high risk- infx-resp failure-cardiac event
to proceed to OR now for attempt at cysto/bilateral stent insertion- may be difficult given active bleeding/bph/bilateral stones
reviewed in full
--- NOTE | 2024-08-13 20:57 | HPS.HSE ---
Family Physician
-
Family Physician: Paul Ramirez
Chief Complaint
-
Abd Pain / Flank Pain
History of Present Illness
Patient is an 84y M with PMH significant for hypothyroidism, complicated L knee infection who presents to ED complaining of abdominal pain and flank pain for a few days. History obtained primarily from at the bedside secondary to acuity.
Patient initially noted some R flank discomfort while at PT on Wednesday. The therapist provided some local massage and it seemed to improve. Yesterday he had recurrent pain in the abdomen and in the R flank / back. He has had little if any PO
intake in the past 24-48 hours. He has felt progressively more weak and continued to complain of abdominal pain. He presented to the ED for evaluation this evening.
On evaluation in the ED, patient is tachycardic and tachypneic. CT scan shows large R ureteral stone with proximal hydro / pyelonephritis.
Medical History
Past Medical History
Past Medical History: Reports Other
Additional Past Medical History:
Hypothyroidism
Complicated L Knee Prosthetic Infection
Diverticular Disease
CVA (noted on imaging - asymptomatic)
Cirrhosis
Past Surgical History: Reports Other
Additional Past Surgical History:
Colon Resection / Colostomy / Reversal
Cholecystectomy
L TKA
Left TKA Two Stage Revision ( and 05/2024)
Social History
Tobacco: Non-smoker
Alcohol: Occasional
Drug: None
Personal:
Living: With Family
Family History
Family History: Not pertinent
Allergies / Home Medications
Allergies reflects when Allergies were last updated in [facility].
Home Medications with original date entered in [employer]
Allergy/Medication List:
Allergies
Allergy/AdvReac Type Severity Reaction Status Date / Time
latex Allergy LIPS AND Verified 06/12/24 11:02
GUMS
SWELLING
meperidine HCl [From Demerol] Allergy hallucinati Verified 06/12/24 11:02
ons
morphine [Morphine] Allergy hallucinati Verified 06/12/24 11:02
ons
Home Medications
levothyroxine 88 mcg tablet (Synthroid) 88 mcg PO DAILY Thyroid 07/03/22
Prevagen 1 cap PO DAILY 06/05/24
aspirin 81 mg tablet,delayed release 81 mg PO DAILY 08/13/24
Review of Systems
-
History Source: Family
A 12 point ROS was completed and negative except as noted: Yes
Constitutional: Reports Fatigue and Chills; Denies Fever
Respiratory: Denies Cough or Trouble Breathing
Cardiac: Denies Chest Pain or Palpitations
Abdomen/GI: Reports Abdominal Pain and Nausea; Denies Vomiting, Diarrhea, Constipated, Bloody Stools or Black Stools
: Reports Flank Pain; Denies Dysuria or Frequency
Neurological: Reports Dizzy and Headache
Psych: Denies Depression or Anxiety
Physical Exam
Vital Signs
Vital Signs
Temp Pulse Resp BP Pulse Ox
97.8 F 113 21 134/71 99
08/13/24 17:45 08/13/24 19:01 08/13/24 19:45 08/13/24 19:01 08/13/24 19:01
Physical Exam
General: Other (Ill-appearing 84y M in moderate distress due to pain.)
HEENT: Other (Dry MM. Neck supple.)
Respiratory: Clear; No Wheezes, Rales or Rhonchi
Cardiac: S1/S2 and Tachycardia
GI: Other (Abdomen softly distended. Patient denies any tenderness at present - no evident rebound / guarding.)
Musculoskeletal: No Clubbing, No Cyanosis and No Edema
Laboratory Results
-
08/13/24 16:11
08/13/24 16:11
Laboratory Results
Lactic Acid 3.7 mmol/L (0.7-2.0) H 08/13/24 17:34
Total Bilirubin 2.0 mg/dl (0.2-1.3) H 08/13/24 16:11
AST 116 U/L (17-59) H 08/13/24 16:11
ALT 148 U/L (0-50) H 08/13/24 16:11
Alkaline Phosphatase 271 U/L (38-126) H 08/13/24 16:11
Lipase 28 U/L (23-300) 08/13/24 16:11
Impression/Plan
-
A/P: Patient is an 84y M with PMH significant for hypothyroidism and complicated L knee infection s/p revision who presents to ED complaining of abdominal pain / flank pain.
Right Ureteral Stone
Right Pyelonephritis
Sepsis secondary to the above
Lactic Acidosis secondary to the above
- Patient being taken emergently to the OR for cysto / stent.
- Admit to ICU post-procedure.
- Patient presents with leukocytosis, tachycardia, tachypnea and UA / imaging evidence for complicated urinary infection.
- IV abx - follow-up culture data and adjust as needed.
- Supportive care with IVFs +/- pressors to maintain perfusion.
- Pain control, etc.
- Follow serial lactate levels.
- Monitor for clinical improvement.
- Appreciate Urology evaluation.
- Orthotic Assistant evaluation.
ANKUR
- SCR = 1.2 compared to recent baseline of 0.6.
- Likely secondary to sepsis + obstruction / stone.
- Follow for changes with cysto / stent and IVF resuscitation.
Hypothyroidism
- Continue current t4 supplementation.
Cirrhosis
- Stable. Prior episodes of encephalopathy - likely due to acute infection.
- Follow for mental status changes / delirium during hospital stay.
- Abnormal LFTs are fairly stable. Follow for any changes.
DVT Prophylaxis: SCDs
Code Status: Full
--- NOTE | 2024-08-13 21:58 | W.IMMPOSTOP ---
Surgical Immed Post Op Note
-
Primary Surgeon:
osmar
Assisting Surgeon:
Pre-op Diagnosis:
bilateral ureteral stones/uti- sepsis/hematuria
Post-op Diagnosis:
same
Procedure Performed:
cysto/bilateral stent insertion/fulguration of bladder neck
Anesthesia Type:
gen
Specimen / Cultures:
none
Estimated Blood Loss:
5cc
Complications:
none
Operative Findings:
no gross bladder mass
hematuria appeared to be from prostate and diffuse cystitis
bilateral stent placed with purulent urine draining from both kidneys
3 way zacarias placed- on cbi
to pacu and then icu in critical condition
[2024-08-13] MEDS: NEO-SYNEPHRINE 250 IV (22:20)
--- NOTE | 2024-08-13 23:22 | W.PN.SEPSIS ---
Sepsis
Vital Signs
Temp Pulse Resp BP Pulse Ox
99.6 F 126 26 107/57 94
08/13/24 22:55 08/13/24 22:55 08/13/24 22:55 08/13/24 22:55 08/13/24 22:45
Physical Exam
Physical Exam:
A focused exam was performed after fluid resuscitation.
Capillary Refill
Bilateral Upper Extremity:
Selvin Time: Less than 3 sec
Bilateral Lower Extremity:
Selvin Time: Less than 3 sec
Pulse Evaluation
Bilateral Radial:
Pulse Evaluation: Present
Bilateral Dorsalis Pedis:
Pulse Evaluation: Present
[2024-08-13 23:39] LABS: Lactic Acid 8.2 mmol/L (0.7-2.0)
[2024-08-14] VITALS (50 sets, daily range): BP systolic 79–124; BP diastolic 56–76; PULSE 115; O2SAT 94; BMI 23.0
--- NOTE | 2024-08-14 00:31 | PTCARENOTE ---
Received pt to ICU room 3370 from PACU via bed at 2256. Pt on Phenylephrine at 60 mcg/min upon arrival, on 4LNC, CBI ongoing. Pt tachycardic 130s on monitor (sinus tachycardia), SpO2 96%. Pt denies pain. Pt is alert to person only--able to state his
name and birthday and knew his family members. Pt is otherwise not oriented and attempts to reorient him to place/time/situation have not been successful. Pt is pleasantly confused, able to follow commands, is pleasant and cooperative with care.
Urine is currently a clear camacho/pink color, no clots present. [place] care done, CHG cloth bath done upon arrival to floor, pt's teeth brushed with suction toothbrush from oral care kit. Physical assessment completed, see nursing shift assessment
flowsheet for full details. Admission database partially completed, as pt is unable to answer all of the questions. Bed alarm activated.
[2024-08-14] MEDS: TORADOL 15 MG IV (03:33)
[2024-08-14 03:52] LABS: INR 1.47; PT 18.1 Sec (11.4-14.6)
[2024-08-14 03:58] LABS: Hemoglobin 13.7 g/dL (13.0-18.0); Mean Corp Hgb Conc. 33.4 g/dL (33.0-37.0); Mean Corpuscular Hgb 30.3 pg (27.0-31.0); Mean Corpuscular Volume 90.7 fL (80.0-94.0); Mean Platelet Volume 13.1 fL (7.4-10.4); Platelet Count 85 10^3/uL (130-400); Red Blood Cell Count 4.52 10^6/uL (4.70-6.10); Red Cell Dist. Width 15.7 % (11.5-14.5); White Blood Cell Count 34.7 10^3/uL (4.8-10.8)
[2024-08-14 04:09] LABS: Lactic Acid 5.5 mmol/L (0.7-2.0)
[2024-08-14 04:12] LABS: Blood Urea Nitrogen 36 mg/dl (9-20); Calcium 8.6 mg/dl (8.4-10.2); Carbon Dioxide 13 mmol/L (22-30); Chloride 114 mmol/L (98-107); Estimated Creatinine Clearance 35 ml/min; Glucose 99 mg/dl (70-99); Potassium 4.1 mmol/L (3.5-5.1); Sodium 140 mmol/L (135-145); eGFR 48.95
--- NOTE | 2024-08-14 05:03 | PTCARENOTE ---
Assessment unchanged. Remains on Phenylephrine. Briefly weaned from 60mcg/min to 40mcg/min but needed to go back to 60mcg to maintain MAP goal >65. Pt c/o pain at around 0330, difficult to describe location or quality but when I lightly touched his
lower abd he nodded his head. Toradol administered, see EMAR, pt fell asleep afterwards and no longer had s/s of pain. CBI continues. Remains tachycardic but now in 110s.
[2024-08-14] MEDS: MAXIPIME 2000 MG IV ×2 (05:37→17:19)
[2024-08-14] MEDS: NSS IV (05:38)
[2024-08-14] MEDS: SYNTHROID PO ×2 (05:38→05:55)
--- NOTE | 2024-08-14 05:39 | W.PN.URO.CBU ---
Today's Communication / Plan
-
ICU care
Assessment / Plan
-
bilateral obstructing ureteral stones with UTI/sepsis
s/p bilateral ureteral stents
pt in ICU
urine clear on minimal drip CBI
on pressors and broad spectrum antibx
continue supportive medical care
continue zacarias and CBI
await ucx results
Diagnosis
-
Date of Service: August 14, 2024
-
Patient Diagnosis:
bilateral obstructing ureteral stones
UTI/sepsis
hematuria
Post Op Day:
08/13 bilateral ureteral stents/fulguration
Subjective
-
pt in ICU
on pressors
confused
wbc and lactic acid up
urine clear on minimal drip cbi
cx's pending
Objective
-
Vital Signs
Temp Pulse Resp BP Pulse Ox
98.8 F 121 25 116/64 97
08/14/24 02:59 08/14/24 05:00 08/14/24 05:00 08/14/24 05:00 08/14/24 05:00
Intake and Output
08/12/24 08/13/24 08/14/24
06:59 06:59 06:59
Intake Total 1411.4 / 1411.4
Output Total
Balance 1316.4 / 1316.4
Intake:
IV fluids (Total) 1411.4 / 1411.4
Neosynephrine 111.4 / 111.4
Normosol 400 / 400
Nss 1,000 ml @ 150 mls/hr IV . 900 / 900
Q6H40M CLEMENTINA Rx#:[id number]
Output:
True Urine Output from CBI
Laboratory Results
08/14/24 03:25
08/14/24 03:25
Review of Systems
-
Unable to obtain full review of systems at this time due to: Other (confused)
Physical Exam
-
General - ill appearing,arousable, NAD
Abdomen - soft, non-tender
Genitalia - [address]
[2024-08-14] MEDS: SODIUM BICARBONATE 1150 MEQ IV ×2 (06:23→14:24)
--- NOTE | 2024-08-14 07:59 | CON.INTV ---
Consultation
Consultation Request
Date/Time Consultation Requested: 08/13/2024 - 2243
Date/Time Consultation Performed: 08/14/2024 - 751
Requesting Provider: Dr. Guzmán
Performing Provider: Dr. Olivo
Reason for Consultation: Septic shock
Medical History
-
Chief Complaint: Left flank pain with reduced urine output and fevers
History of Present Illness:
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
ED, BPH and chronic transaminitis who presents with severe left-sided flank pain with reduced urine output and fevers at home. Patient was endorsing some back pain for a few days and the family and the patient thought that this was his sciatica.
He became progressively more weak and then started to endorse abdominal pain. He eventually came to the ER where he was found to be tachypneic and tachycardic. In the ER he was afebrile to 98.2 �F, pulse rate 142, breathing at 24 breaths/min, BP
136/79 and saturating 96% on room air. Labs showed leukocytosis to 24.9, serum bicarbonate level 16, anion gap 14, lactate 3.7, urinalysis with positive nitrites and >100 urine WBC with COVID antigen negative. Blood cultures collected. CT
abdomen/pelvis performed showing a large 1.2 cm obstructive calculus in the right UPJ with moderate right-sided hydronephrosis and a striated right intrarenal nephrogram suggesting acute right pyelonephritis, also a 5.6 mm nonobstructive calculus in
the proximal left ureter. In the ER he was given 2 L of NS 0.9%, cefepime/vancomycin, Dilaudid, Zofran and Toradol. Urology was consulted, Lagos was placed with bloody urine seen. Patient then went to the OR and underwent cystoscopy with
bilateral stent insertion with fulguration of bladder neck. Three-way Lagos placed and started on CBI. Patient developed hypotension and was then transferred to the ICU and started on phenylephrine. Psychiatric Nursing Assistant services is now consulted for
additional management/recommendations.
This morning, patient was seen and evaluated at bedside. Patient's daughter, Danica, and , Radha, at bedside. All questions were answered. He is sitting in chair no acute distress. Currently on room air saturating 96% with heart rate 115 and
BP 115/61. Currently on minimal CBI, and urine is now yellow. Off jeannine since this AM at 930. Patient feels well, and says the left-sided back pain is much better. Currently denies chest pain, GARZA, nausea, vomiting, fevers or chills. His blood
culture collected yesterday is growing Klebsiella oxytoca.
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
06/12/2024), remote history of cerebral infarcts, history of GI bleed, ambulatory dysfunction
PSHx: History of left total knee arthroplasty complicated by prosthetic joint infection s/p revision x 2 (04/03/2024 + 06/12/2024), history of colon resection s/p colostomy with subsequent reversal, cholecystectomy
Past Medical History
Past Medical History: Other (Above as per HPI)
Past Surgical History: Other (Above as per HPI)
Social History
Tobacco: Non-smoker
Alcohol: Occasional
Drug: None
Personal:
Living: With Family
Family History
Family History: Other (Sibling: Liver cirrhosis)
Allergies / Home Medications
Allergies
Allergy/AdvReac Type Severity Reaction Status Date / Time
latex Allergy LIPS AND Verified 06/12/24 11:02
GUMS
SWELLING
meperidine HCl [From Demerol] Allergy hallucinati Verified 06/12/24 11:02
ons
morphine [Morphine] Allergy hallucinati Verified 06/12/24 11:02
ons
Home Medications
�Medication �Instructions �Recorded �Confirmed �Last Taken �Type
levothyroxine 88 mcg tablet 88 mcg PO DAILY Thyroid 07/03/22 08/13/24 08/12/24 History
(Synthroid)
Prevagen 1 cap PO DAILY 06/05/24 08/13/24 3 Days Ago History
~08/10/24
aspirin 81 mg tablet,delayed 81 mg PO DAILY 08/13/24 08/13/24 08/12/24 History
release
Review of Systems
-
History Source: Patient
All other systems: Negative unless noted
Vitals / Labs / Diagnostic Testing
Vital Signs
Temp Pulse Resp BP Pulse Ox
97.8 F 120 31 124/64 93
08/14/24 07:25 08/14/24 10:30 08/14/24 10:30 08/14/24 10:30 08/14/24 10:21
Lab Data
08/14/24 03:25
08/14/24 03:25
Laboratory Results
08/14/24
03:25
PT 18.1 H
INR 1.47
APTT 45.0 H
Microbiology
08/13/24 17:43 Blood/Venous Blood Culture - Preliminary
Positive culture in progress
08/13/24 17:43 Blood/Venous Gram Stain - Final
08/13/24 17:34 Blood/Venous Blood Culture - Preliminary
Positive culture in progress
08/13/24 17:34 Blood/Venous Gram Stain - Final
Diagnostic Testing:
Physical Exam
-
HEENT: Normocephalic and Anicteric
Cardiovascular: S1/S2 and Peripheral Edema (negative)
Respiratory: Clear, Wheeze (negative), Rales (negative), Rhonchi (negative) and Non-Labored Respirations
GI: Soft, Non Distended, Non Tender and Normal Bowel Sounds
Neurology: Awake, Alert and Tremors (negative)
Skin: Warm and Dry
General: Respiratory Distress (negative), Comfortable, Fever (negative) and Chills (negative)
Assessment
-
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
hypothyroidism, ED, BPH and chronic transaminitis who presents with severe left-sided flank pain with reduced urine output and fevers at home. Patient was endorsing some back pain for a few days and the family and the patient thought that this was
his sciatica. He became progressively more weak and then started to endorse abdominal pain. He eventually came to the ER where he was found to be tachypneic and tachycardic. In the ER he was afebrile to 98.2 �F, pulse rate 142, breathing at 24
breaths/min, BP 136/79 and saturating 96% on room air. Labs showed leukocytosis to 24.9, serum bicarbonate level 16, anion gap 14, lactate 3.7, urinalysis with positive nitrites and >100 urine WBC with COVID antigen negative. Blood cultures
collected. CT abdomen/pelvis performed showing a large 1.2 cm obstructive calculus in the right UPJ with moderate right-sided hydronephrosis and a striated right intrarenal nephrogram suggesting acute right pyelonephritis, also a 5.6 mm
nonobstructive calculus in the proximal left ureter. In the ER he was given 2 L of NS 0.9%, cefepime/vancomycin, Dilaudid, Zofran and Toradol. Urology was consulted, Lagos was placed with bloody urine seen. Patient then went to the OR and
underwent cystoscopy with bilateral stent insertion with fulguration of bladder neck. Three-way Lagos placed and started on CBI. Patient developed hypotension and was then transferred to the ICU and started on phenylephrine. Psychiatric Nursing Assistant services
is now consulted for additional management/recommendations.
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
(04/03/2024 + 06/12/2024), remote history of cerebral infarcts, history of GI bleed, ambulatory dysfunction
Impression:
#Septic shock due to complicated UTI/right-sided pyelonephritis - shock state now resolved
#Bilateral ureteral stones with moderate right hydronephrosis s/p ureteral stents
#Right-sided pyelonephritis with large 1.2 cm obstructing calculus in the right UPJ with moderate right hydronephrosis
#Leukocytosis due to sepsis
#Thrombocytopenia due to sepsis
#Lactic acidosis - likely falsely elevated in setting of chronic liver disease/suspected cirrhosis
#ANKUR
#Metabolic acidosis with increased anion gap due to ANKUR + lactic acidosis
#Chronic transaminitis
#Fatty liver disease/suspected cirrhosis
#History of left knee prosthetic joint infection with joint revision (04/03/2024 + 06/12/2024)
#History of right cerebellar infarct
#History of GI bleed
#History of ambulatory dysfunction
#Hypothyroidism
Plan:
- Patient has evidence of bilateral ureteral stones with sepsis/hematuria with pyelo and on evening of 08/13/2024 underwent cystoscopy with bilateral stent placement and fulguration of the bladder neck
- Purulent urine was seen draining from both kidneys and a three-way Lagos was placed and CBI started
- Due to hypotension he was transferred to the ICU for further management with vasopressors and neosynephrine started
- As of this morning on 08/14, all vasopressors have been weaned off and he is awake, alert in no acute distress
- Still on minimal CBI and hematuria has resolved --> defer management of CBI to urology
- Trend H/H and transfuse if needed to keep Hb>7g/dL; keep plt>50k
- Currently on cefepime and s/p IV vanco x1 dose
- Follow-up urine culture from the OR
- Follow-up blood cultures (1 set from 08/13/2024 is growing Klebsiella oxytoca; follow up 2nd blood Cx set)
- Trend WBC and monitor for fevers
- Continue to trend serum bicarb level and continue bicarb drip
- Maintain MAP >65
- Continue trending lactate level until <2mg/dL, although this may not be possible in the setting of chronic liver disease
- Trend LFTs
- Renally dose all meds/ABx
- Trend sCr, trend UOP and monitor I/O
- Maintain SpO2 >90-94%, currently on room air
- prn nebulized bronchodilators - not currently bronchospastic
- Incentive spirometer encouraged 10x per hour for at least 4 hrs a day
- Continue levothyroxine
- Replete electrolytes with K>4, Mg>2
- Maintain euglycemia with goal BG 140-180 (HbA1C: 4.7 on 06/06/2024)
- PT/OT, up OOB as tolerated
- Aspiration precautions
- DVT ppx: Ok to start chemical ppx with HSQ as long as plt >50k and Hb stable with no signs of bleeding, figueroa while he remains on CBI
Patient has markedly improved and is stable for downgrade out of ICU to telemetry. No additional recommendations at this time. Psychiatric Nursing Assistant/Pulmonary service will now sign off. Thank you for allowing us to be involved in the care of this patient.
Please reconsult if there are any additional questions/concerns, or if patient's respiratory status deteriorates.
Data:
CT abdomen/pelvis with IV contrast 08/13/2024:
1. NEW MODERATE RIGHT HYDRONEPHROSIS secondary to a large 1.2 cm obstructing calculus in the right ureteropelvic junction. Striated right intrarenal nephrogram suggesting ACUTE RIGHT PYELONEPHRITIS in the setting of fever and right-sided abdominal
pain. Nonobstructing right lower pole intrarenal calculi.
2. 5.6 mm nonobstructing calculus in the proximal left ureter.
3. Moderate distention of the urinary bladder containing a large amount of intraluminal air.
4. Severely enlarged prostate gland.
5. Severe colonic diverticulosis.
6. Minimal ascites.
7. Moderate diffuse hepatic steatosis and mild hepatomegaly.
8. Moderate splenomegaly.
9. Previous cholecystectomy.
10. Severe calcific atherosclerotic plaque in the abdominal aorta.
Total time spent today was 78 minutes for this encounter. Time includes reviewing laboratory test/imaging results, reviewing pertinent medical records, obtaining and reviewing medical history, performing an appropriate exam, ordering medications,
tests and procedures. Time also includes documentation of this encounter, coordinating patient care and communicating with other healthcare professionals. Total time does not include separately billed tests performed on this date of service.
--- NOTE | 2024-08-14 09:10 | PTCARENOTE ---
Rec'd care of patient at 0700. Patient drowsy. Oriented only to self. Confused/forgetful. ST with BBB on tele. Trace edema in b/l LE. Bicarb drip and Brandon infusing through right forearm INT. Titrating for MAP >65. Pulse ox 99% on 4L nc. Weaned to RA.
Pulse ox 94%. Lung sounds diminished throughout. +BS. No BM. NPO until speech eval. CBI maintained. Yellow output. Full assessment and care as charted on worklist.
[2024-08-14 09:47] LABS: Magnesium 1.9 mg/dl (1.6-2.3); Phosphorus 2.9 mg/dl (2.5-4.5)
--- NOTE | 2024-08-14 09:58 | PTCARENOTE ---
Patient evaluated by speech therapy.
--- NOTE | 2024-08-14 10:03 | CM ---
CM following re: discharge planning.
Reviewed pt's chart, met with pt and pt's spouse at bedside.
Pt is an 84 year old male, admitted with primary dx of abdominal pain / flank pain.
Pt seen during ST evaluation. per spouse, pt was born in [place], grew up in [facility], resides with spouse 2SH, 2 steps to enter, has 3 supportive children. Per spouse, pt ambulates with a walker, had 3 knee surgeries in the past, has stair
glide, known to [facility]. No SNF history. pt's spouse feels that pt might need to go to a SNF for a short term rehab if she feels she will not be able to care for him. Pt's spouse has a list of SNFs.
PT and OT will evaluate the pt to determine a level of care at discharge.
PCP: Paul Ramirez
Pharmacy: [facility].
D/C plan: most likely SNF level of care if recommended by PT/OT. Back up plan: home with Suki WARN[facility] and family support.
CM will follow with discharge plan updates as hospitalization progresses
--- NOTE | 2024-08-14 10:12 | PTOTSP ---
Speech Therapy Assessment
Swallowing: Patient presents with oral processing difficulty that appears related to post op cognitive status (? effects of anesthesia/pain medication). Although patient with history of mild dementia which is a risk factor for aspiration, swallowing
was not a prior concern and he was tolerating regular solids and thin liquids.
Recommend
1. IDDSI 4 (pureed) and Thin Liquids
2. Meds crushed in applesauce.
3. Aspiration precautions.
4. Assist and supervision with intake.
5. ST will follow to reassess for diet advancement as appropriate.
--- NOTE | 2024-08-14 10:22 | PTCARENOTE ---
PT/OT at bedside.
[2024-08-14 10:27] LABS: Lactic Acid 4.9 mmol/L (0.7-2.0)
--- NOTE | 2024-08-14 12:19 | PTCARENOTE ---
Patient remains oob in chair. AAOx2; disoriented to time. [place]; b/l hearing aids placed by . BP stable off Brandon. Diet advanced by speech therapist. Assisted in ordering lunch. CBI unchanged. No other changes.
--- NOTE | 2024-08-14 15:05 | W.PN.HOSP.TC ---
Today's Communication/Plan
-
abx
repeat blood cultures
bicarb solution, monitor renal fxn and bicarb
monitor
echo, for completeness sake
Abdominal ultrasound
Assessment / Plan
Assessment / Plan
Physical Exam
General: Other (Ill-appearing 84y M in moderate distress due to pain.)
HEENT: Other (Dry MM. Neck supple.)
Respiratory: Clear; No Wheezes, Rales or Rhonchi
Cardiac: S1/S2 and Tachycardia
GI: Other (Abdomen softly distended. Patient denies any tenderness at present - no evident rebound / guarding.)
Musculoskeletal: No Clubbing, No Cyanosis and No Edema
A/P: Patient is an 84y M with PMH significant for hypothyroidism and complicated L knee infection s/p revision who presents to ED complaining of abdominal pain / flank pain.
Right Ureteral Stone
Right Pyelonephritis
Bacteremia
Sepsis secondary to the above
Lactic Acidosis secondary to the above
--s/p bilateral ureteral stents 08/13
- 3 way zacarias placed- on cbi
- IV abx - follow-up culture data and adjust as needed.
- Supportive care with IVFs +/- pressors to maintain perfusion.
- Pain control, etc.
- Follow serial lactate levels.
- Monitor for clinical improvement.
- Appreciate Urology evaluation.
-echo
ANKUR
metaboic Acidosis
- SCR = 1.2 compared to recent baseline of 0.6.
- Likely secondary to sepsis + obstruction / stone.
- Follow for changes with cysto / stent and IVF resuscitation.
-monitor with resuscitation
-cont bicarb solution
Hypothyroidism
- Continue current t4 supplementation.
Cirrhosis
- Stable. Prior episodes of encephalopathy - likely due to acute infection.
- Follow for mental status changes / delirium during hospital stay.
- Abnormal LFTs are fairly stable. Follow for any changes.
# Severely enlarged prostate gland.
-f/u urology outpt
#Thrombocytopenia
-probable due to sepsis
-monitor with abx
#transaminitis
-prob due to sepsis
-monitor
# Severe calcific atherosclerotic plaque in the abdominal aorta.
-f/u outpt
DVT Prophylaxis: SCDs
Code Status: Full
Total time spent on today's encounter was 55 minutes which included time spent in counseling the patient/family regarding diagnosis and treatment plan as listed above, goals of care, and symptom management. Case was discussed with nursing staff,
specialists, and care coordinators/case management. All labs and imaging personally reviewed by me. Remainder the time spent in detailed review of previous records, lab data, imaging, and other medical provider documentation.
Anticipated Discharge: Within 24 hours
Subjective/Interval History
-
Date of Service: August 14, 2024
Off pressors
bilateral obstructing ureteral stones with UTI/sepsis
s/p bilateral ureteral stents
Objective Data
-
Labs:
Laboratory Results
08/14/24 08/14/24
03:25 14:48
WBC 34.7 H Pending
Hgb 13.7 Pending
Hct 41.0 Pending
Plt Count 85 L D Pending
PT 18.1 H
INR 1.47
APTT 45.0 H
Sodium 140 Pending
Potassium 4.1 Pending
Chloride 114 H Pending
Carbon Dioxide 13 L* Pending
BUN 36 H Pending
Creatinine 1.4 H Pending
Glucose 99 Pending
Calcium 8.6 Pending
Total Bilirubin Pending
AST Pending
ALT Pending
Alkaline Phosphatase Pending
Vital Signs:
Vital Signs
Temp Pulse Resp BP Pulse Ox
97.6 F 115 28 105/57 95
08/14/24 11:18 08/14/24 15:00 08/14/24 15:00 08/14/24 15:00 08/14/24 15:00
I&O
08/13/24 08/14/24 08/15/24
06:59 06:59 06:59
Intake Total 1579.4 / 1741.4 1634 / 1634
Output Total 345 / 345
Balance 1234.4 / 1396.4 1634 / 1634
Review of Systems
-
History Source: Patient
All other systems: Not reviewed unless documented
Data Reviewed
-
CT Scan: Image personally visualized and interpreted and Report Reviewed by me
Labs: Labs Reviewed by me
[2024-08-14 15:13] LABS: Hematocrit 43.1 % (39.0-52.0); Hemoglobin 14.4 g/dL (13.0-18.0); Mean Corp Hgb Conc. 33.4 g/dL (33.0-37.0); Mean Corpuscular Hgb 30.2 pg (27.0-31.0); Mean Corpuscular Volume 90.4 fL (80.0-94.0); Platelet Count 56 10^3/uL (130-400); Red Blood Cell Count 4.77 10^6/uL (4.70-6.10)
[2024-08-14 15:32] LABS: Lactic Acid 5.2 mmol/L (0.7-2.0)
[2024-08-14 15:35] LABS: AST (SGOT) 106 U/L (17-59); Albumin 2.7 g/dl (3.5-5.0); Alkaline Phosphatase 211 U/L (38-126); Blood Urea Nitrogen 45 mg/dl (9-20); Calcium 8.4 mg/dl (8.4-10.2); Carbon Dioxide 22 mmol/L (22-30); Chloride 105 mmol/L (98-107); Estimated Creatinine Clearance 30 ml/min; Glucose 119 mg/dl (70-99); Potassium 3.8 mmol/L (3.5-5.1); Sodium 138 mmol/L (135-145); Total Bilirubin 3.8 mg/dl (0.2-1.3); Total Protein 5.8 g/dl (6.3-8.2)
[2024-08-14 15:53] LABS: ALT (SGPT) 125 U/L (0-50)
--- NOTE | 2024-08-14 16:36 | PTCARENOTE ---
Patient downgraded to tele level. Repeat labs ordered for 1999. Bicarb drip rate decreased to 75mL/hr.
--- NOTE | 2024-08-14 16:48 | PTCARENOTE ---
Patient assisted x2RW back to bed. ECHO in progress.
[2024-08-14] MEDS: STERILE WATER FOR INJECTION 10 ML IV (17:19)
[2024-08-14 20:58] LABS: Hematocrit 41.1 % (39.0-52.0); Hemoglobin 14.1 g/dL (13.0-18.0); Mean Corp Hgb Conc. 34.3 g/dL (33.0-37.0); Mean Corpuscular Hgb 30.5 pg (27.0-31.0); Mean Corpuscular Volume 88.8 fL (80.0-94.0); Platelet Count 53 10^3/uL (130-400); Red Blood Cell Count 4.63 10^6/uL (4.70-6.10); Red Cell Dist. Width 15.9 % (11.5-14.5)
[2024-08-14 21:03] LABS: Lactic Acid 3.7 mmol/L (0.7-2.0)
--- NOTE | 2024-08-14 21:30 | PTCARENOTE ---
Received pt from ICU. PT AAO to self and hospital. ST with BBB on tele #9, BP 111/67 pox 97 RA. PT denies any chest pain or shortness of breath. Bicarb gtt at 75cc hour via R hand PIV. CBI/ Lagos(#22 welsh) draining clear yellow urine. Pt oriented
to room. Call whitaker within reach with bed alarm placed under pt.
[2024-08-14] MEDS: HEPARIN 5000 UNITS SC (21:34)
[2024-08-15 03:14] VITALS: BP 121/68
[2024-08-15] MEDS: STERILE WATER FOR INJECTION 10 ML IV ×2 (05:31→18:39)
[2024-08-15] MEDS: MAXIPIME 2000 MG IV ×2 (05:32→18:39)
[2024-08-15 06:00] VITALS: BMI 24.3
[2024-08-15] MEDS: SYNTHROID 88 MCG PO (06:22)
[2024-08-15 07:27] LABS: Hematocrit 37.7 % (39.0-52.0); Hemoglobin 12.6 g/dL (13.0-18.0); Mean Corp Hgb Conc. 33.4 g/dL (33.0-37.0); Mean Corpuscular Hgb 29.9 pg (27.0-31.0); Mean Corpuscular Volume 89.5 fL (80.0-94.0); Mean Platelet Volume 12.9 fL (7.4-10.4); Platelet Count 51 10^3/uL (130-400); Red Blood Cell Count 4.21 10^6/uL (4.70-6.10); Red Cell Dist. Width 15.7 % (11.5-14.5); White Blood Cell Count 17.7 10^3/uL (4.8-10.8)
[2024-08-15 07:40] LABS: ALT (SGPT) 104 U/L (0-50); AST (SGOT) 74 U/L (17-59); Albumin 2.3 g/dl (3.5-5.0); Alkaline Phosphatase 167 U/L (38-126); Blood Urea Nitrogen 59 mg/dl (9-20); Calcium 7.8 mg/dl (8.4-10.2); Carbon Dioxide 25 mmol/L (22-30); Chloride 105 mmol/L (98-107); Estimated Creatinine Clearance 35 ml/min; Glucose 100 mg/dl (70-99); Magnesium 2.1 mg/dl (1.6-2.3); Phosphorus 3.1 mg/dl (2.5-4.5); Potassium 3.7 mmol/L (3.5-5.1); Sodium 139 mmol/L (135-145); Total Bilirubin 2.2 mg/dl (0.2-1.3); Total Protein 5.2 g/dl (6.3-8.2); eGFR 48.95
[2024-08-15] MEDS: SODIUM BICARBONATE 1150 MEQ IV (07:43)
[2024-08-15] MEDS: FLUSH (NSS) 1 FLUSH IV ×2 (07:43→09:44)
[2024-08-15 08:10] VITALS: BP 138/77
[2024-08-15] MEDS: HEPARIN 5000 UNITS SC ×2 (09:43→20:34)
--- NOTE | 2024-08-15 11:07 | W.PN.URO.CBU ---
Today's Communication / Plan
-
stop cbi
start flomax
continue antibx
Assessment / Plan
-
bilateral obstructing ureteral stones with UTI/sepsis- klebsiella
s/p bilateral ureteral stents
pt out of icu
urine clear
cx + for klebsiella
stop cbi
start flomax in anticipation of TOV in next 24-48hrs depending on pt's mental status and ambulatory status
continue antibx
Diagnosis
-
Date of Service: August 15, 2024
-
Patient Diagnosis:
bilateral obstructing ureteral stones
UTI/sepsis- klebsiella
hematuria
Post Op Day:
08/13 bilateral ureteral stents/fulguration
Subjective
-
pt out of icu
still confused
urine clear
wbc/cr and lactic acid downtrending
cx + for klesiella
Objective
-
Vital Signs
Temp Pulse Resp BP Pulse Ox
97.7 F 99 18 138/77 97
08/15/24 08:10 08/15/24 08:10 08/15/24 08:10 08/15/24 08:10 08/15/24 08:10
Intake and Output
08/14/24 08/15/24 08/16/24
06:59 06:59 06:59
Intake Total 1579.4 / 1741.4 2339 / 2339
Output Total 345 / 345 208 / 2085
Balance 1234.4 / 1396.4 254 / 254
Intake:
Oral fluids 840 / 840
IV fluids (Total) 1579.4 / 1741.4 1499 / 1499
Neosynephrine 129.4 / 141.4 24
Normosol 400 / 400
Nss 1,000 ml @ 150 mls/hr IV . 1050 / 1200 875 / 875
Q6H40M CLEMENTINA Rx#:[id number]
Sterile Water For Injection 225 / 225
1000 ml 1,000 ml @ 150 mls/hr
IV .Q7H40M CLEMENTINA with Sodium
Bicarbonate 150 Meq Rx#:
[id number]
Sterile Water For Injection 375 / 375
1000 ml 1,000 ml @ 75 mls/hr IV
.[id number] CLEMENTINA with Sodium
Bicarbonate 150 Meq Rx#:
[id number]
Output:
True Urine Output from CBI 345 / 345 2084
Laboratory Results
08/15/24 07:04
08/15/24 07:04
Review of Systems
-
Unable to obtain full review of systems at this time due to: Dementia
Physical Exam
-
General -no acute distress
Abdomen - soft, non-tender
Genitalia - normal- zacarias in place
[2024-08-15 11:39] VITALS: BP 116/66
[2024-08-15] MEDS: FLOMAX 0.4 MG PO ×2 (12:45→20:34)
--- NOTE | 2024-08-15 14:15 | W.PN.HOSP.TC ---
Today's Communication/Plan
-
repeat blood cultures
cont abx
monitor renal function, lfts
stop cbi
tamsulosin
monitor platelets
Assessment / Plan
Assessment / Plan
Physical Exam
General: Other (Ill-appearing 84y M in moderate distress due to pain.)
HEENT: Other (Dry MM. Neck supple.)
Respiratory: Clear; No Wheezes, Rales or Rhonchi
Cardiac: S1/S2 and Tachycardia
GI: Other (Abdomen softly distended. Patient denies any tenderness at present - no evident rebound / guarding.)
Musculoskeletal: No Clubbing, No Cyanosis and No Edema
A/P: Patient is an 84y M with PMH significant for hypothyroidism and complicated L knee infection s/p revision who presents to ED complaining of abdominal pain / flank pain.
Right Ureteral Stone
Right Pyelonephritis
Bacteremia
Sepsis secondary to the above
Lactic Acidosis secondary to the above
--s/p bilateral ureteral stents 08/13
- 3 way zacarias placed- on cbi
- IV abx - follow-up culture data and adjust as needed.
- Supportive care with IVFs +/- pressors to maintain perfusion.
- Pain control, etc.
- elev lactate more than likely dec clearance from liver disease
- Monitor for clinical improvement.
- Appreciate Urology evaluation.
-echo with no vegettaion
�Stop CBI
ANKUR
- SCR = 1.2 compared to recent baseline of 0.6.
- Likely secondary to sepsis + obstruction / stone.
- Follow for changes with cysto / stent and IVF resuscitation.
-monitor with resuscitation
#metabolic Acidosis
-2/2 to ankur and #Elevated lactate
-improving
-s/p bicarb solution
�Hemodynamically stable
Hypothyroidism
- Continue current t4 supplementation.
Fatty liver disease
Transaminitis
� Probably worsened secondary to sepsis
- Stable. Prior episodes of encephalopathy - likely due to acute infection.
- Follow for mental status changes / delirium during hospital stay.
- Abnormal LFTs are fairly stable. Follow for any changes.
�Ultrasound consistent with fatty liver disease
� Follow-up outpatient
# Severely enlarged prostate gland.
-f/u urology outpt
�Start Flomax
#Thrombocytopenia
-probable due to sepsis
-monitor with abx
# Severe calcific atherosclerotic plaque in the abdominal aorta.
-f/u outpt
DVT Prophylaxis: hsq
Code Status: Full
Anticipated Discharge: > 48 hours
Subjective/Interval History
-
Date of Service: August 15, 2024
no acute events
Objective Data
-
Labs:
Laboratory Results
08/15/24
07:04
WBC 17.7 H
Hgb 12.6 L
Hct 37.7 L
Plt Count 51 L
Sodium 139
Potassium 3.7
Chloride 105
Carbon Dioxide 25
BUN 59 H
Creatinine 1.4 H
Glucose 100 H
Calcium 7.8 L
Total Bilirubin 2.2 H
AST 74 H
ALT 104 H
Alkaline Phosphatase 167 H
Vital Signs:
Vital Signs
Temp Pulse Resp BP Pulse Ox
97.6 F 107 18 116/66 98
08/15/24 11:39 08/15/24 11:39 08/15/24 11:39 08/15/24 11:39 08/15/24 11:39
I&O
08/14/24 08/15/24 08/16/24
06:59 06:59 06:59
Intake Total 1579.4 / 1741.4 2339 / 2339
Output Total 345 / 345 2084 / 2084
Balance 1234.4 / 1396.4 254 / 254
Review of Systems
-
History Source: Patient
All other systems: Not reviewed unless documented
Data Reviewed
-
CT Scan: Image personally visualized and interpreted and Report Reviewed by me
Labs: Labs Reviewed by me
--- NOTE | 2024-08-15 15:36 | PTOTSP ---
Dysphagia Therapy
Impression: No signs concerning for oral/pharyngeal dysphagia based on clinical bedside re-assessment.
Recommendations:
1. Regular, Thin Liquids
2. Medications as best tolerated
3. Supervision with PO intake given dementia
No further dysphagia tx warranted. Please reconsult as appropriate.
[2024-08-15 15:41] VITALS: BP 118/69
[2024-08-15] MEDS: FLUSH (NSS) 2 FLUSH IV (18:39)
[2024-08-15 19:39] VITALS: BP 132/87
[2024-08-15 23:34] VITALS: BP 142/87
[2024-08-16] VITALS (8 sets, daily range): BP systolic 106–164; BP diastolic 65–100; PULSE 70–101; O2SAT 93–94; BMI 23.8
[2024-08-16] MEDS: TYLENOL 650 MG PO ×2 (01:35→11:54)
[2024-08-16] MEDS: SYNTHROID 88 MCG PO (05:32)
[2024-08-16] MEDS: STERILE WATER FOR INJECTION 10 ML IV (05:32)
[2024-08-16] MEDS: MAXIPIME 2000 MG IV (05:32)
--- NOTE | 2024-08-16 08:03 | W.PN.URO.CBU ---
Today's Communication / Plan
-
continue antibx
continue flomax
zacarias out tomorrow
Assessment / Plan
-
bilateral obstructing ureteral stones with UTI/sepsis- klebsiella
s/p bilateral ureteral stents
pt out of icu
urine clear
cx + for klebsiella
improving
continue antibx
on flomax
plan for removal of zacarias tomorrow for TOV
eventual outpt f/u to discuss stone procedure
Diagnosis
-
Date of Service: August 16, 2024
-
Patient Diagnosis:
bilateral obstructing ureteral stones
UTI/sepsis- klebsiella
hematuria
Post Op Day:
08/13 bilateral ureteral stents/fulguration
Subjective
-
pt resting
urine clear
no fevers
labs pending
Objective
-
Vital Signs
Temp Pulse Resp BP Pulse Ox
97.8 F 113 20 140/85 95
08/16/24 03:17 08/16/24 03:17 08/16/24 03:17 08/16/24 03:17 08/16/24 03:17
Intake and Output
08/15/24 08/16/24 08/17/24
06:59 06:59 06:59
Intake Total 2339 / 2339 480 / 480
Output Total 2085 / 2085 4050 / 4050
Balance 254 / 254 -3570 / -3570
Intake:
Oral fluids 840 / 840 480 / 480
IV fluids (Total) 1499 / 1499
Neosynephrine
Nss 1,000 ml @ 150 mls/hr IV . 875 / 875
Q6H40M [facility] Rx#:[id number]
Sterile Water For Injection 225 / 225
1000 ml 1,000 ml @ 150 mls/hr
IV .Q7H40M [facility] with Sodium
Bicarbonate 150 Meq Rx#:
[id number]
Sterile Water For Injection 375 / 375
1000 ml 1,000 ml @ 75 mls/hr IV
.[id number] CLEMENTINA with Sodium
Bicarbonate 150 Meq Rx#:
[id number]
Output:
Urine, Zacarias 0 / 405
True Urine Output from CBI 2084
Physical Exam
-
General - no acute distress
Abdomen - soft, non-tender
Genitalia - zacarias in place
[2024-08-16 08:33] LABS: Hemoglobin 12.3 g/dL (13.0-18.0); Mean Corp Hgb Conc. 33.2 g/dL (33.0-37.0); Mean Corpuscular Hgb 29.7 pg (27.0-31.0); Mean Corpuscular Volume 89.4 fL (80.0-94.0); Mean Platelet Volume 11.9 fL (7.4-10.4); Platelet Count 58 10^3/uL (130-400); Red Blood Cell Count 4.14 10^6/uL (4.70-6.10); White Blood Cell Count 11.2 10^3/uL (4.8-10.8)
[2024-08-16] MEDS: FLOMAX 0.4 MG PO ×2 (09:40→19:48)
[2024-08-16 09:41] LABS: ALT (SGPT) 91 U/L (0-50); AST (SGOT) 62 U/L (17-59); Albumin 2.5 g/dl (3.5-5.0); Alkaline Phosphatase 180 U/L (38-126); Blood Urea Nitrogen 45 mg/dl (9-20); Calcium 8.3 mg/dl (8.4-10.2); Carbon Dioxide 28 mmol/L (22-30); Chloride 104 mmol/L (98-107); Estimated Creatinine Clearance 54 ml/min; Glucose 108 mg/dl (70-99); Potassium 3.4 mmol/L (3.5-5.1); Sodium 139 mmol/L (135-145); Total Bilirubin 1.9 mg/dl (0.2-1.3); Total Protein 5.6 g/dl (6.3-8.2); eGFR > 60.00
[2024-08-16] MEDS: HEPARIN 5000 UNITS SC ×2 (09:41→19:48)
[2024-08-16] MEDS: STERILE WATER FOR INJECTION 20 ML IV (10:13)
[2024-08-16] MEDS: ROCEPHIN 2000 MG IV (10:13)
--- NOTE | 2024-08-16 13:45 | W.PN.HOSP.TC ---
Today's Communication/Plan
-
switch to ceftriaxone
id consulted
f/u final repeat blood cultures
Assessment / Plan
Assessment / Plan
Physical Exam
General: Other (Ill-appearing 84y M in moderate distress due to pain.)
HEENT: Other (Dry MM. Neck supple.)
Respiratory: Clear; No Wheezes, Rales or Rhonchi
Cardiac: S1/S2 and Tachycardia
GI: Other (Abdomen softly distended. Patient denies any tenderness at present - no evident rebound / guarding.)
Musculoskeletal: No Clubbing, No Cyanosis and No Edema
A/P: Patient is an 84y M with PMH significant for hypothyroidism and complicated L knee infection s/p revision who presents to ED complaining of abdominal pain / flank pain.
Right Ureteral Stone
Right Pyelonephritis
Bacteremia, Klebsiella oxytoca
Sepsis secondary to the above
Lactic Acidosis secondary to the above
--s/p bilateral ureteral stents 08/13
- 3 way zacarias placed- on cbi
- IV abx - follow-up culture data and adjust as needed.
- Supportive care with IVFs +/- pressors to maintain perfusion.
- Pain control, etc.
- elev lactate more than likely dec clearance from liver disease
- Monitor for clinical improvement.
- Appreciate Urology evaluation.
-echo with no vegettaion
�Stop CBI
-eventual outpt f/u to discuss stone procedure
-ID consulted
ANKUR
- SCR = 1.2 compared to recent baseline of 0.6.
- Likely secondary to sepsis + obstruction / stone.
- Follow for changes with cysto / stent and IVF resuscitation.
-monitor with resuscitation
�Improving
#metabolic Acidosis
-2/2 to ankur and #Elevated lactate
-improving
-s/p bicarb solution
�Hemodynamically stable
Hypothyroidism
- Continue current t4 supplementation.
Fatty liver disease
Transaminitis
� Probably worsened secondary to sepsis
- Stable. Prior episodes of encephalopathy - likely due to acute infection.
- Follow for mental status changes / delirium during hospital stay.
- Abnormal LFTs are fairly stable. Follow for any changes.
�Ultrasound consistent with fatty liver disease
� Follow-up outpatient
# Severely enlarged prostate gland.
-f/u urology outpt
�Start Flomax
#Thrombocytopenia
-probable due to sepsis
-monitor with abx
# Severe calcific atherosclerotic plaque in the abdominal aorta.
-f/u outpt
#Hypokalemia
� Monitor and replete
DVT Prophylaxis: hsq
Code Status: Full
Anticipated Discharge: 24 - 48 hours
Subjective/Interval History
-
Date of Service: August 16, 2024
No acute events overnight
Objective Data
-
Labs:
Laboratory Results
08/16/24
08:16
WBC 11.2 H
Hgb 12.3 L
Hct 37.0 L
Plt Count 58 L
Sodium 139
Potassium 3.4 L
Chloride 104
Carbon Dioxide 28
BUN 45 H
Creatinine 0.9
Glucose 108 H
Calcium 8.3 L
Total Bilirubin 1.9 H
AST 62 H
ALT 91 H
Alkaline Phosphatase 180 H
Vital Signs:
Vital Signs
Temp Pulse Resp BP Pulse Ox
100.5 F H 136 20 120/72 93
08/16/24 11:45 08/16/24 11:39 08/16/24 11:39 08/16/24 11:39 08/16/24 13:12
I&O
08/15/24 08/16/24 08/17/24
06:59 06:59 06:59
Intake Total 2339 / 2339 480 / 480
Output Total 2084 4050 / 4050 0 / 0
Balance 254 / 254 -3570 / -3570 0 / 0
Review of Systems
-
History Source: Patient
All other systems: Not reviewed unless documented
Data Reviewed
-
CT Scan: Image personally visualized and interpreted and Report Reviewed by me
Labs: Labs Reviewed by me
[2024-08-16] MEDS: KCL ELIXIR 40 MEQ PO (14:06)
--- NOTE | 2024-08-16 15:57 | CON.ID ---
Consultation
-
Date/Time Consultation Requested: 08/16/24 13:51
Date/Time Consultation Performed: 08/16/24 15:57
Requesting Provider: Dr Gaxiola
Performing Provider: Dr Torres
Reason for Consultation: Abd Pain / Flank Pain
Chief Complaint / Past History
Chief Complaint
Abd Pain / Flank Pain
History of Present Illness
Mr Moore is a pleasant 84 year old male with recent L PJI due to S epidermidis (completed course of cefazolin) who presented here 08/13 for a several day history of abdominal and flank pain, anorexia and weakness.
Since arrival here he has been afebrile. I do note the core T this afternoon to 100.5, note that via the core route a fever is defined as over 101.0. Bp was initially hypotensive, now stable, wbc on arrival 34 with L shift now 11.2, hgb 12.3, plt
58, cr baseline 0.7, cr was 1.2 on arrival and now 0.9, na 139, co2 initially 16 now normalized, t bili peaked at 3.8 now 1.9, ast 106 now 62, alt 125 now 91, alk phos peaked at 211 now 180, ua> 100 rbc and wbc/hpf and moderate bacteria, 08/13 CT
a/p: new right hydronephrosis with 1.2 cm obstructing renal stone and right pyelonephritis, nonobstructing stone also seen in the L ureter, abd US: fatty liver, blood cultures x2 with K oxytoca, patient on ceftriaxone, ID is consulted for assistance
with management.
Past History
Additional Past Medical History:
Hypothyroidism
Complicated L Knee Prosthetic Infection
Diverticular Disease
CVA (noted on imaging - asymptomatic)
Cirrhosis
Additional Past Surgical History:
Colon Resection / Colostomy / Reversal
Cholecystectomy
L TKA
Left TKA Two Stage Revision ( and 05/2024)
Allergy History:
latex Allergy (Verified 06/12/24 11:02)
LIPS AND GUMS SWELLING
meperidine HCl [From Demerol] Allergy (Verified 06/12/24 11:02)
hallucinations
morphine [Morphine] Allergy (Verified 06/12/24 11:02)
hallucinations
Medications Reviewed: Yes
Social History
Tobacco: Non-Smoker
Alcohol: Occasional
Drug: None
Personal:
Family History
Family History: Not Pertinent
Review of Systems
Review of Systems
General: Negative Fever or Chills
All systems: All other systems were reviewed and were negative
Vital Signs
Temp Pulse Resp BP Pulse Ox
100.5 F H 136 20 120/72 93
08/16/24 11:45 08/16/24 11:39 08/16/24 11:39 08/16/24 11:39 08/16/24 13:12
Physical Exam
Physical Exam
Constitutional: No Acute Distress
Cardiovascular: Regular Rate and S1/S2; Negative Murmur or Rub
Pulmonary: Clear and Symmetric; Negative Wheezes, Rales or Rhonchi
Gastrointestinal: Soft, Non Tender, Non Distended and Normal Bowel Sounds
Genito-Urinary: Negative Suprapubic Tenderness or CVA Tenderness
Skin: Warm and Dry; Negative Rash or Jaundice
Lab / Diagnostic Study Results
08/16/24 08:16
08/16/24 08:16
Abs Immat Gran (auto) 0.4 10^3/uL (0-0.05) H 08/13/24 16:11
Absolute Neuts (auto) 22.5 10^3/uL (1.4-6.5) H 08/13/24 16:11
Absolute Lymphs (auto) 0.6 10^3/uL (1.2-3.4) L 08/13/24 16:11
Absolute Monos (auto) 1.3 10^3/uL (0.1-0.6) H 08/13/24 16:11
Absolute Basos (auto) 0.1 10^3/uL (0-0.2) 08/13/24 16:11
Immature Gran % 1.7 % (0-0.5) H 08/13/24 16:11
Neutrophils % 90.4 % (42.2-75.2) H 08/13/24 16:11
Lymphocytes % 2.2 % (20.5-51.1) L 08/13/24 16:11
Monocytes % 5.3 % (1.7-9.3) 08/13/24 16:11
Eosinophils % 0.0 % (0-6) 08/13/24 16:11
Basophils % 0.4 % (0-2) 08/13/24 16:11
PT 18.1 Sec (11.4-14.6) H 08/14/24 03:25
INR 1.47 08/14/24 03:25
Lactic Acid 3.7 mmol/L (0.7-2.0) H 08/14/24 20:46
Ur Squamous Epith Cells None seen /LPF (Few) 08/13/24 20:03
Microbiology Results
Micro:
08/15/24 09:34 Blood Culture - Preliminary
Blood/Venous No Growth in 24 hours- Final report to follow
08/13/24 17:43 Blood Culture - Final
Blood/Venous Klebsiella oxytoca
Gram Stain - Final
08/13/24 17:34 Blood Culture - Final
Blood/Venous Klebsiella oxytoca
Gram Stain - Final
08/16/24 08:15 Blood Culture - Pending
Blood/Venous
08/15/24 07:31 Blood Culture - Preliminary
Blood/Venous No Growth in 24 hours- Final report to follow
08/13/24 20:03 Urine Culture - Final
Urine No Significant Growth
08/13/24 16:11 Influenza Types A & B (LISSETH) - Final
Nasal Swab Negative for Influenza A & B, NAAT
Negative results must be combined with clinical observations
and patient history.
Nucleic Acid Amplification test (NAAT)performed on the
[employer] platform.
Blood Culture Final 08/16/24-831
Positive for Klebsiella oxytoca by [employer]
Nucleic Acid Methodology.
Organism 1 Klebsiella oxytoca
1. Klebsiella oxytoca
M.I.C. RX
--------- ---
Amoxicillin/Potas. Clavulanate <=8/4 S
Ampicillin >16 R
Ampicillin/Sulbactam 16/8 I
Aztreonam <=4 S
Cefazolin 8 R
Cefepime <=2 S
Ceftazidime <=1 S
Ceftriaxone <=1 S
Ertapenem <=0.5 S
Ciprofloxacin <=0.25 S
Gentamicin <=2 S
Meropenem <=1 S
Piperacillin/Tazobactam <=8 S
Tetracycline <=4 S
Tobramycin <=2 S
Trimethoprim/Sulfamethoxazole <=2/38 S
Assessment / Plan
Complicated UTI due to K oxytoca
K oxytoca bacteremia
ANKUR - resolved
Cirrhosis
- note core T this afternoon - fever would be defined as over 101.0
- ordered no further core Ts (rectal) on this patient who is able to corporate with oral Ts. Ts should be via a consistent route to allow for trending.
- repeat blood cultures no growth to date
- urinary source of bacteremia
- can switch to cefdinir tomorrow to complete a 14 day course 08/13-08/26
- follow up with urology
--- NOTE | 2024-08-16 16:40 | CM ---
Patient seen beside with spouse.
Elevated tempo today, CX pending, continue IV anbx.
PT/OT recommending home with VN.
Plan: home with [facility]N when stable.
[2024-08-17 03:17] VITALS: BP 164/95
[2024-08-17 06:00] VITALS: BMI 23.6
[2024-08-17] MEDS: OMNICEF 300 MG PO (06:12)
[2024-08-17] MEDS: SYNTHROID 88 MCG PO (06:12)
[2024-08-17 07:58] LABS: Hematocrit 37.2 % (39.0-52.0); Hemoglobin 12.8 g/dL (13.0-18.0); Mean Corp Hgb Conc. 34.4 g/dL (33.0-37.0); Mean Corpuscular Hgb 30.2 pg (27.0-31.0); Mean Corpuscular Volume 87.7 fL (80.0-94.0); Mean Platelet Volume 12.5 fL (7.4-10.4); Platelet Count 53 10^3/uL (130-400); Red Blood Cell Count 4.24 10^6/uL (4.70-6.10); Red Cell Dist. Width 15.1 % (11.5-14.5); White Blood Cell Count 8.1 10^3/uL (4.8-10.8)
[2024-08-17] MEDS: HEPARIN 5000 UNITS SC (08:10)
[2024-08-17] MEDS: FLOMAX 0.4 MG PO (08:10)
[2024-08-17 08:13] VITALS: BP 158/81
--- NOTE | 2024-08-17 08:56 | W.PN.URO.CBU ---
Today's Communication / Plan
-
continue antibx
remove zacarias for TOV
Assessment / Plan
-
bilateral obstructing ureteral stones with UTI/sepsis- klebsiella
s/p bilateral ureteral stents
pt out of icu
urine clear
cx + for klebsiella
improving
continue antibx per ID
on flomax
remove zacarias for TOV today
eventual outpt f/u to discuss stone procedure
Diagnosis
-
Date of Service: August 17, 2024
-
Patient Diagnosis:
bilateral obstructing ureteral stones
UTI/sepsis- klebsiella
hematuria
Post Op Day:
08/13 bilateral ureteral stents/fulguration
Subjective
-
pt awake and alert
urie clear
wbc normalized- 1 low grade temp
Objective
-
Vital Signs
Temp Pulse Resp BP Pulse Ox
97.8 F 101 18 158/81 95
08/17/24 08:13 08/17/24 08:13 08/17/24 08:13 08/17/24 08:13 08/17/24 08:13
Intake and Output
08/16/24 08/17/24 08/18/24
06:59 06:59 06:59
Intake Total 480 / 480 1200 / 1200
Output Total 4050 / 4050 1550 / 1550
Balance -3570 / -3570 -350 / -350
Intake:
Oral fluids 480 / 480 1200 / 1200
Output:
Urine, Zacarias 4050 / 4050 1550 / 1550
True urine output from hand 0 / 0
irrigation
Laboratory Results
08/17/24 07:00
Review of Systems
-
Constitutional: Fatigue
Respiratory: No Symptoms
Cardiac: No Symptoms
Abdomen/GI: No Symptoms
: Other (zacarias uncomfortable)
Physical Exam
-
General - no acute distress
Abdomen - soft, non-tender
Genitalia - normal- zacarias in place
[2024-08-17 09:24] LABS: ALT (SGPT) 100 U/L (0-50); AST (SGOT) 93 U/L (17-59); Albumin 2.5 g/dl (3.5-5.0); Alkaline Phosphatase 237 U/L (38-126); Blood Urea Nitrogen 34 mg/dl (9-20); Calcium 8.5 mg/dl (8.4-10.2); Carbon Dioxide 26 mmol/L (22-30); Chloride 106 mmol/L (98-107); Estimated Creatinine Clearance 70 ml/min; Glucose 95 mg/dl (70-99); Potassium 3.7 mmol/L (3.5-5.1); Sodium 138 mmol/L (135-145); Total Bilirubin 1.8 mg/dl (0.2-1.3); Total Protein 5.6 g/dl (6.3-8.2); eGFR > 60.00
--- NOTE | 2024-08-17 09:36 | W.PN.ID1 ---
Date of Service
Date of Service: August 17, 2024
Today's Communication
- switch to cefdinir to complete a 14 day course 08/13-08/26
- follow up with urology
Assessment / Plan
Complicated UTI due to K oxytoca
K oxytoca bacteremia
ANKUR - resolved
Cirrhosis
- ordered no further core Ts (rectal) on this patient who is able to corporate with oral Ts. Ts should be via a consistent route to allow for trending.
- repeat blood cultures no growth to date
- urinary source of bacteremia
- switch to cefdinir to complete a 14 day course 08/13-08/26
- follow up with urology
Chief Complaint
-: UTI
Subjective / Review of Systems
afebrile
bp stable
tolerating current therapies
Vital Signs / Physical Exam
Vital Signs
Vital Signs
Temp Pulse Resp BP Pulse Ox
97.8 F 101 18 158/81 95
08/17/24 08:13 08/17/24 08:13 08/17/24 08:13 08/17/24 08:13 08/17/24 08:13
Physical Exam
Constitutional: No Acute Distress and Chronically Ill
Cardiovascular: Regular Rate and S1/S2; Negative Murmur or Rub
Pulmonary: Clear and Symmetric; Negative Wheezes or Rales
Gastrointestinal: Soft, Non Tender, Non Distended and Normal Bowel Sounds
Skin: Warm and Dry; Negative Rash or Jaundice
Objective Data
Lab Data
Lab Results
08/17/24 07:00
08/17/24 07:00
PT 18.1 Sec (11.4-14.6) H 08/14/24 03:25
INR 1.47 08/14/24 03:25
APTT 45.0 Sec (23.4-35.0) H 08/14/24 03:25
Estimated Creat Clear 70 ml/min 08/17/24 07:00
Lactic Acid 3.7 mmol/L (0.7-2.0) H 08/14/24 20:46
Total Bilirubin 1.8 mg/dl (0.2-1.3) H 08/17/24 07:00
AST 93 U/L (17-59) H 08/17/24 07:00
ALT 100 U/L (0-50) H 08/17/24 07:00
Alkaline Phosphatase 237 U/L (38-126) H 08/17/24 07:00
Most recent labs reviewed.
Micro Results:
08/16/24 08:15 Blood Culture - Preliminary
Blood/Venous No Growth in 24 hours- Final report to follow
08/15/24 07:31 Blood Culture - Preliminary
Blood/Venous No Growth in 48 hours- Final report to follow
08/15/24 09:34 Blood Culture - Preliminary
Blood/Venous No Growth in 24 hours- Final report to follow
08/13/24 17:43 Blood Culture - Final
Blood/Venous Klebsiella oxytoca
Gram Stain - Final
08/13/24 17:34 Blood Culture - Final
Blood/Venous Klebsiella oxytoca
Gram Stain - Final
08/13/24 20:03 Urine Culture - Final
Urine No Significant Growth
08/13/24 16:11 Influenza Types A & B (LISSETH) - Final
Nasal Swab Negative for Influenza A & B, NAAT
Negative results must be combined with clinical observations
and patient history.
Nucleic Acid Amplification test (NAAT)performed on the
[employer] platform.
--- NOTE | 2024-08-17 10:58 | CM ---
Patient seen bedside.
Possible d/c home later today.
IMM reviewed ad signed.
will transport.
PT/OT recommending home with home care.
Suki WARNER to follow.
Plan: home with Suki WARNER
Suki WARNER
fax#[phone]
[2024-08-17 11:59] VITALS: BP 155/86
--- NOTE | 2024-08-17 13:36 | W.PN.HOSP.TC ---
Addendum entered and electronically signed by Andrew Gaxiola MD 08/18/24 18:22:
[id number]
Original Note:
Today's Communication/Plan
-
cefdinir- 14 day course 08/13-08/26
tamsulosin
f/u urology for stone procedure outpt
TOV
ASA can continue, monitor platelets outpt
f/u bmp outpt
f/u gi for cirrhosis outpt
Assessment / Plan
Assessment / Plan
Physical Exam
General: Other (Ill-appearing 84y M in moderate distress due to pain.)
HEENT: Other (Dry MM. Neck supple.)
Respiratory: Clear; No Wheezes, Rales or Rhonchi
Cardiac: S1/S2 and Tachycardia
GI: Other (Abdomen softly distended. Patient denies any tenderness at present - no evident rebound / guarding.)
Musculoskeletal: No Clubbing, No Cyanosis and No Edema
A/P: Patient is an 84y M with PMH significant for hypothyroidism and complicated L knee infection s/p revision who presents to ED complaining of abdominal pain / flank pain.
Right Ureteral Stone
Right Pyelonephritis
Bacteremia, Klebsiella oxytoca
Sepsis secondary to the above
Lactic Acidosis secondary to the above
--s/p bilateral ureteral stents 08/13
- 3 way zacarias placed- on cbi - dced zacarias - TOV
- IV abx - follow-up culture data and adjust as needed.
- Supportive care with IVFs +/- pressors to maintain perfusion. - dced - maintaining well
- Pain control, etc.
- elev lactate more than likely dec clearance from liver disease
- Monitor for clinical improvement.
- Appreciate Urology evaluation.
-echo with no vegetation
-eventual outpt f/u to discuss stone procedure
-ID consulted
-cefdinir to complete a 14 day course 08/13-08/26
ANKUR
- SCR = 1.2 compared to recent baseline of 0.6.
- Likely secondary to sepsis + obstruction / stone.
- Follow for changes with cysto / stent and IVF resuscitation.
-monitor with resuscitation
�resolved
-f/u bmp outpt
#metabolic Acidosis
-2/2 to ankur and #Elevated lactate
-improving
-s/p bicarb solution
�Hemodynamically stable
Hypothyroidism
- Continue current t4 supplementation.
Fatty liver disease
Transaminitis
� Probably worsened secondary to sepsis
- Stable. Prior episodes of encephalopathy - likely due to acute infection.
- Follow for mental status changes / delirium during hospital stay.
- Abnormal LFTs are fairly stable. Follow for any changes.
�Ultrasound consistent with fatty liver disease
� Follow-up outpatient
# Severely enlarged prostate gland.
-f/u urology outpt
�Start Flomax
-TOV
#Thrombocytopenia
-probable due to sepsis along with cirrhosis
-monitor with abx
# Severe calcific atherosclerotic plaque in the abdominal aorta.
-f/u outpt
-cont asa; platelets > 50 ; f/u cbc outpt
#Hypokalemia
� Monitor and replete
DVT Prophylaxis: hsq
Code Status: Full
More than 30 minutes spent in discharge including
Final examination of the patient
Summarizing hospital stay
Instructions for continuing care to all relevant caregivers
Preparation of discharge records, prescriptions, and referral forms
Total time spent (36 in minutes):
Anticipated Discharge: Today
Subjective/Interval History
-
Date of Service: August 17, 2024
no acute events overnight
Objective Data
-
Labs:
Laboratory Results
08/17/24
07:00
WBC 8.1
Hgb 12.8 L
Hct 37.2 L
Plt Count 53 L
Sodium 138
Potassium 3.7
Chloride 106
Carbon Dioxide 26
BUN 34 H
Creatinine 0.7
Glucose 95
Calcium 8.5
Total Bilirubin 1.8 H
AST 93 H
ALT 100 H
Alkaline Phosphatase 237 H
Vital Signs:
Vital Signs
Temp Pulse Resp BP Pulse Ox
98 F 103 18 155/86 98
08/17/24 11:59 08/17/24 11:59 08/17/24 11:59 08/17/24 11:59 08/17/24 11:59
I&O
08/16/24 08/17/24 08/18/24
06:59 06:59 06:59
Intake Total 480 / 480 1200 / 1200
Output Total 4050 / 4050 1550 / 1550 150 / 150
Balance -3570 / -3570 -350 / -350 -150 / -150
Review of Systems
-
History Source: Patient
All other systems: Not reviewed unless documented
Data Reviewed
-
CT Scan: Image personally visualized and interpreted and Report Reviewed by me
Labs: Labs Reviewed by me
--- NOTE | 2024-08-17 13:45 | W.DS.TRANS ---
DC Summary - Salvage Determiner
-
Discharge Instructions:
Discharge Diagnosis/Procedures Complicated UTI due to K oxytoca
K oxytoca bacteremia
ANKUR - resolved
Diet Low Cholesterol,Low Fat
Blood Work cbc and cmp in 1 week with pcp; LFTs should be
followed up by GI outpt
Instructions:
Stand-Alone Forms:
Changes to Home Medications: Yes
Discharge Medications:
DC Medications w/original date entered in [employer]
levothyroxine 88 mcg tablet (Synthroid) 88 mcg PO DAILY Thyroid 07/03/22
Prevagen 1 cap PO DAILY 06/05/24
aspirin 81 mg tablet,delayed release 81 mg PO DAILY 08/13/24
cefdinir 300 mg capsule 300 mg PO Q12H 10 days #20 caps 08/17/24
tamsulosin 0.4 mg capsule 0.4 mg PO BID 30 days #60 caps 08/17/24
Home Medication Changes
cefdinir 300 mg capsule 300 mg PO Q12H 10 days #20 caps 08/17/24
tamsulosin 0.4 mg capsule 0.4 mg PO BID 30 days #60 caps 08/17/24
Pending Results: No
[2024-08-17 15:48] VITALS: BP 143/89
[2024-08-17 15:53] VITALS: BP 143/89
== END 2024-08-17 16:40 | disposition home health service (06) | DRG 853 ==
LOC: 4 EAST ACU 21:35
PROVIDERS: Nurse Practitioner; Nurse Practitioner Family; ADMITTING PHYSICIAN Hospitalist; ATTENDING PHYSICIAN Internal Medicine; CONSULT PHYSICIAN Internal Medicine Critical Care Medicine; CONSULT PHYSICIAN Specialist; CONSULT PHYSICIAN Student in an Organized Health Care Education/Training Program; EMERGENCY PHYSICIAN Emergency Medicine; FAMILY PHYSICIAN Family Medicine
PROC: 0T788DZ Dilation of Bilateral Ureters with Intraluminal Device, Via Natural or Artificial Opening Endoscopic (ICD-10-PCS; 2024-08-13)
DX: A41.59 Other Gram-negative sepsis (principal); R65.21 Severe sepsis with septic shock; E87.20 Acidosis, unspecified; N13.6 Pyonephrosis; N17.9 Acute kidney failure, unspecified; E03.9 Hypothyroidism, unspecified; I10 Essential (primary) hypertension; K74.60 Unspecified cirrhosis of liver; F03.A0 Unspecified dementia, mild, without behavioral disturbance, psychotic disturbance, mood disturbance, and anxiety; D69.59 Other secondary thrombocytopenia; N40.0 Benign prostatic hyperplasia without lower urinary tract symptoms; K76.0 Fatty (change of) liver, not elsewhere classified; Z88.5 Allergy status to narcotic agent; Z79.890 Hormone replacement therapy; Z79.82 Long term (current) use of aspirin; Z96.652 Presence of left artificial knee joint; Z11.52 Encounter for screening for COVID-19; Z86.73 Personal history of transient ischemic attack (TIA), and cerebral infarction without residual deficits; Z91.040 Latex allergy status
CPT/HCPCS: 51702; 51798; 70450; 74018; 74177; 76000; 76700; 80048; 80053; 81003; 81015; 83605; 83690; 83735; 84100; 85025; 85027; 85610; 85730; 87040; 87086; 87149; 87186; 87205; 87502; 87811; 92526; 92610; 93005; 93306; 93970; 96361; 96365; 96375; 97116; 97163; 97167; 97530; 97535; 99291; C2617; Q9967

== ENCOUNTER 2024-09-05 06:28 | Day surgery (SDC) | payer MEDICARE, OTHER, SELFPAY ==
--- NOTE | 2024-08-29 11:18 | PTCARENOTE ---
Abnormal lab work from 08/14/24: PTT: 45.0 INR: 1.47. Melanie at Dr. Boland's office notified.
[2024-09-05] VITALS (10 sets, daily range): BP systolic 107–156; BP diastolic 57–89; BMI 22.5
[2024-09-05] MEDS: NORMOSOL-R/PLASMALYTE-A 1000 IV (08:57)
[2024-09-05] MEDS: Pyridium 200 MG PO (12:54)
[2024-09-05] MEDS: FLOMAX 0.4 MG PO (12:54)
== END 2024-09-05 15:10 | disposition home or self-care (01) ==
LOC: SDS 06:28
PROVIDERS: ATTENDING PHYSICIAN Specialist
DX: N20.2 Calculus of kidney with calculus of ureter (principal)
CPT/HCPCS: 52356; 74018; 76000; 82365; 87077; 87086; C1758; C1894; C2617

== ENCOUNTER → 2025-01-16 10:20 | Outpatient (REF) | payer MEDICARE, OTHER, SELFPAY ==
[2025-01-16 11:44] LABS: INR 1.01; PT 13.8 Sec (11.4-14.6)
== END ==
LOC: REG 10:20
PROVIDERS: ATTENDING PHYSICIAN Internal Medicine Transplant Hepatology
DX: K74.69 Other cirrhosis of liver (principal)
CPT/HCPCS: 36415; 85610

== ENCOUNTER → 2025-04-18 12:38 | Outpatient (REF) | payer MEDICARE, OTHER, SELFPAY | LOC: RAD 12:38 | PROVIDERS: ATTENDING PHYSICIAN Physician Assistant Surgical; FAMILY PHYSICIAN Family Medicine | DX: M79.89 Other specified soft tissue disorders (principal); M79.662 Pain in left lower leg; Z96.652 Presence of left artificial knee joint | CPT/HCPCS: 93971 ==

== ENCOUNTER → 2025-05-21 13:37 | Outpatient (REF) | payer MEDICARE, OTHER, SELFPAY | LOC: RAD 13:37 | PROVIDERS: ATTENDING PHYSICIAN Specialist; FAMILY PHYSICIAN Family Medicine | DX: N20.0 Calculus of kidney (principal) | CPT/HCPCS: 74176 ==